=== PATIENT | male | born 1945 | race Caucasian/White ===

== ENCOUNTER → 2018-05-08 | Outpatient (CLI) | payer MEDICARE ==
[~2018-05-08] MED LIST: AMLO10TA7 PO; ASP325TEC PO; ASP81TEC PO; ASPI-586 PO; ATOR20TA66 PO; ATR20T PO; CARV6.25 PO; CARV6.252 PO; CATHETER FLUSH 10 ML SYR IV PRN; CHOL100011 PO; CHOL10003 PO; CLOP75TA PO; HCT25T PO; IBUP-15 PO; ISM30TCR PO; KRIL1CAP PO; LISI20TA PO; LISI40TA PO; MAGN400C PO; MULT-301 PO; NIA500ERT PO; NIAC1000 PO; OMEG-9 PO; OMEG1CAP24 PO; PRAV80TA PO; RNT150T PO; ROSU10TA12 PO; UBID1CAP51 PO; ZINC100T3 PO; ZINC50TA49 PO; [UNRECOGNIZED DRUG - CODE] PO
[2018-05-08 07:36] LABS: ALBUMIN 4.3 GM/DL (3.2-4.5); BILIRUBIN,DIRECT 0.2 MG/DL (0.0-0.3); BILIRUBIN,INDIRECT 0.3 MG/DL; BILIRUBIN,TOTAL 0.5 MG/DL (0.1-1.0); TOTAL PROTEIN 7.1 GM/DL (6.4-8.2)
--- NOTE | 2018-05-08 20:32 | STRESS TEST ---
DATE OF SERVICE: 05/08/2018 EXERCISE MYOVIEW STRESS TEST REPORT REFERRING PHYSICIAN: and Dr. Brandon Fregoso. Baseline heart rate is 64. Baseline blood pressure 144/87. Baseline EKG is sinus rhythm with no ischemic changes. In summary, the patient was injected with 10.81 mCi of technetium-99 Myoview and the resting images were obtained. Then, the patient started exercising with a baseline heart rate, blood pressure and EKG mentioned above. During exercise, the patient started to have frequent PVCs, ventricular couplet and three beats nonsustained ventricular tachycardia. During recovery, heart rate and blood pressure returned to baseline. The patient was able to exercise only for 3 minutes and 30 seconds. The resting and stressed images were reviewed and compared in the short axis, horizontal long axis, and vertical long axis views. Review of the images showed reversible ischemia involving the whole anterior wall and anterolateral wall. SSS is 11, SDS 11, TID value 1.02. On the gated images, the left ventricle appeared to be dilated with diffuse left ventricular hypokinesia, more pronounced at the apex and anteroapical and inferoapical segment. Calculated ejection fraction of 56%. CONCLUSION: 1. Poor exercise tolerance, a total of 3 minutes and 30 seconds on standard Og protocol, total of 5.2 mets achieving 96% of maximum expected heart rate. 2. Hypertensive response to exercise, achieving maximum blood pressure of 207/100. 3. Exercise induced frequent PVCs, ventricular couplets and three beats nonsustained ventricular tachycardia. 4. Reversible ischemia involving the whole anterior wall and anterolateral wall. 5. Prominent left ventricle with diffuse left ventricular hypokinesia, calculated ejection fraction 56%. 6. Hypertensive response to exercise. Job ID: [id number] DocumentID: [id number] Dictated Date: 05/08/2018 16:08:10 Manager Office Date: 05/08/2018 20:31:34 Dictated By: DEREK ANDERSON MD
== END ==
LOC: CARD 07:05
PROVIDERS: ATTEND Physician Assistant
DX: I25.10 Atherosclerotic heart disease of native coronary artery without angina pectoris (principal); I63.9 Cerebral infarction, unspecified; I10 Essential (primary) hypertension; E78.5 Hyperlipidemia, unspecified; E66.9 Obesity, unspecified; Z68.31 Body mass index [BMI] 31.0-31.9, adult
CPT/HCPCS: 36415; 78452; 80061; 80076; 93017; 93306

== ENCOUNTER 2018-05-12 06:39 | Day surgery (SDC) | payer MEDICARE ==
[~2018-05-12] VITALS: Ht 182.9 cm; Wt 104.3 kg
[2018-05-12] VITALS (11 sets, daily range): BP systolic 99–151; BP diastolic 66–87
[~2018-05-12 06:39] MED LIST changes: -CATHETER FLUSH 10 ML SYR IV PRN
[2018-05-12] MEDS ORDERED: HEParin 1000 UNIT/ML (10ML VIAL) FOR BOLUS ONE (06:42)
[2018-05-12] MEDS ORDERED: NS IV 1000 ML 3,000 ML ONE (06:43)
[2018-05-12] MEDS ORDERED: LIDOCAINE 1% INJ 20 ML 20 ML VIAL ONE (06:43)
[2018-05-12] MEDS ORDERED: NS IV 1000 ML 1,000 ML IV SCH ×2 (07:00→08:09)
[2018-05-12 07:08] LABS: HEMOGLOBIN 15.7 G/DL (13.3-17.7); MEAN PLATELET VOLUME 11.8 FL (7.4-10.4); RED CELL DISTRIBUTION WIDTH 14.7 % (10.0-14.5); WHITE BLOOD COUNT 8.2 10^3/uL (4.3-11.0)
[2018-05-12] MEDS ORDERED: CARV12.53 PO (07:09)
[2018-05-12] MEDS ORDERED: MIDAZOLAM 5 MG/5 ML (VERSED) VIAL ONE (07:14)
[2018-05-12] MEDS ORDERED: fentaNYL INJECTION 100 MCG/2 ML AMP ONE (07:14)
[2018-05-12 07:21] LABS: PROTHROMBIN TIME PATIENT 13.4 SEC (12.2-14.7)
[2018-05-12 07:28] LABS: ALANINE AMINOTRANSFERASE 39 U/L (0-55); ALBUMIN 4.5 GM/DL (3.2-4.5); ALKALINE PHOSPHATASE 40 U/L (40-136); BILIRUBIN,TOTAL 0.6 MG/DL (0.1-1.0); BUN/CREATININE RATIO 17; CALCIUM 9.8 MG/DL (8.5-10.1); CARBON DIOXIDE 25 MMOL/L (21-32); CHLORIDE 103 MMOL/L (98-107); CREATININE SERUM 0.84 MG/DL (0.60-1.30); GFR ESTIMATED > 60; GLUCOSE 121 MG/DL (70-105); POTASSIUM 3.8 MMOL/L (3.6-5.0); SODIUM 141 MMOL/L (135-145); TOTAL PROTEIN 7.5 GM/DL (6.4-8.2)
--- NOTE | 2018-05-12 07:37 | Diagnostic Imaging Report ---
Examination: Single upright view of the chest Indication: Abnormal stress test. Coronary artery disease. Hypertension. Comparison: Multiple priors, most recent performed on 01/21/2016. Findings: No focal consolidation. There is prominence of the central pulmonary vasculature, without overt edema. The heart is top normal in size. The cardiomediastinal silhouette is unchanged. No pneumothorax or large pleural effusion. No acute osseous abnormality. Median sternotomy wires appear intact. Impression: No acute chest disease. No significant change from prior. Dictated by: Dictated on workstation # [id number]
--- NOTE | 2018-05-12 07:46 | Cardiac Procedure Note-CS/ASA ---
Pre-Procedure Note Pre-Op Procedure Note H&P Reviewed The H&P was reviewed, patient examined and no changes noted. Date H&P Reviewed: May 12, 2018 Time H&P Reviewed: 07:45 Conscious Sedation Pre-Proced Time 07:45 ASA Score 3 For ASA 3 and 4: Consider anesthesia and medical clearance. Also, for patients with a history of failed moderate sedation consider anesthesia. Airway Lungs Heart ASA score ASA 1: a normal healthy patient ASA 2: a patient with a mild systemic disease (mid diabetes, controlled hypertension, obesity x ASA 3: a patient with a severe systemic disease that limits activity (angina , COPD, prior Myocardial infarction) ASA 4: a patient with an incapacitating disease that is a constant threat to life (CHF, renal failure) ASA 5: a moribund patient not expected to survive 24 hrs. (ruptured aneurysm) ASA 6: a declared brain- patient whose organs are being harvested. For emergent operations, add the letter E after the classification Mallampati Classification Grade 3 Sedation Plan Analgesia, Amnesia, Plan communicated to team members, Discussed options with patient/fam, Discussed risks with patient/fam The patient is an appropriate candidate to undergo the planned procedure, sedation, and anesthesia. The patient immediately re-assessed prior to indication. DEREK ANDERSON MD May 12, 2018 07:46
--- NOTE | 2018-05-12 08:11 | Discharge Inst-Post CATH ---
Discharge Inst-CATH/EP Post Cardiac Cath/EP D/C Inst Follow Up/Plan Appointment with Dr. ANDERSON's office in 2-4 weeks CARDIAC CATH DISCHARGE INSTRUCTIONS *Hold Metformin for 48 hours post heart cath. ACTIVITY * Go Home directly and rest. * Limit activity of the leg (or wrist if it was used) for 7 days including aerobics, swimming, jogging, bicycling, etc. * Restrict stair-climbing for 7 days if possible, if not, climb up with your non -cath leg, then bring together on the same step. * Avoid lifting, pushing, pulling or excessive movement of the affected extremity for 7 days. * Customary sexual activity may be resumed after 2 days-use caution not to use a position that strains or causes pain to the affected extremity. * No driving for 24 hours. * NO SMOKING. * Avoid straining for bowel movements for 7 days. * Gentle walking on level ground is allowed. * Returning to work will depend on the type of procedure and the results. Your doctor will discuss this with you. CALL YOUR DOCTOR FOR ANY OF THE FOLLOWING: *If bleeding from the puncture site occurs- Apply gentle pressure to site with clean cloth and call your doctor or EMS. * If a knot or lump forms under the skin, increases in size, or causes pain. * If bruising appears to be worsening or moving further down your leg instead of disappearing. * Temperature above 101 F. CARE OF YOUR GROIN INCISION; * Bruising or purple discoloration of the skin near the puncture site is common. * You may shower only, no bathtub bathing for 5 days. Be careful to avoid slipping as your leg may feel stiff. * If a closure device was used on your femoral artery, please see the attached guide regarding care of the device and your leg. * Leave the dressing on, until removed by office staff. CARE OF YOUR WRIST INCISION; * Bruising or purple discoloration of the skin near the puncture site is common. * You may shower. * DO NOT submerge wrist. * Leave dressing on, until removed by office staff.. DEREK ANDERSON MD May 12, 2018 08:11
[2018-05-12] MEDS ORDERED: FLU QUADRIvalent (5+ YOA) 2018-2019 (AFLURIA) 0.5 ML IM ONE (08:15)
[2018-05-12] MEDS ORDERED: PATIENT MAY USE OWN MEDS, ALL PO SCH (08:15)
--- NOTE | 2018-05-12 08:16 | Cardiac Cath Report ---
Cardiac Cath Report Physician (s)/Industrial Relations Counselor (s) Physician DEREK ANDERSON MD Pre-Procedure Diagnosis Pre-Procedure Diagnosis: coronary artery disease Post-Procedure Note Procedure Start Date: May 12, 2018 Name of Procedure: Left heart catheterization Vein graft angiogram Aortic root angiogram Findings/Procedure Note PROCEDURE NOTE: 72 years old gentleman with history of coronary artery disease, CABG, had an abnormal stress test with anterior wall ischemia, scheduled for cardiac catheterization possible PTCA. After explaining the procedure to the patient, all pros and cons were explained , all questions were answered. The patient signed the consent and then he was placed on the cardiac catheterization laboratory. Groin was prepped SL fashion local anesthesia was used. Sheath placed in the Right femoral artery. Blane right and left catheter were used to access the coronary system.Vein Graft evaluated. FUCHS evaluated. Pigtail was used to access the left ventricular cavity. Left ventriculogram was not done, pressure was measured Aortic root angiogram was done At the end of the procedure the sheath was removed. Closure device was used FINDINGS: Hemodynamics LV 91/13, end-diastolic pressure of 13 Aorta 93/43 mean of 61 ANATOMY: Left Main has moderate disease nonobstructive disease Left Anterior Descending is calcified with moderate disease proximally, small vessel disease distally, FUCHS to LAD is occluded Left Circumflex is moderate in size, the proper circumflex artery is very small artery with diffuse disease, vein graft to the obtuse marginal branch is occluded Right Coronory Artery is occluded, the vein graft to the right coronary artery is patent FUCHS to LAD is occluded, diffusely atretic Vein Graft there are 2 vein grafts. Vein graft to the right coronary artery is patent with good flow distally Vein graft to the obtuse marginal branch is occluded LV Gram was not done, pressure was measured Aorta evaluation with aortic root angiogram which showed normal aortic root and ascending aorta, hypertensive changes noted dissection or aneurysm, the vein graft to the right coronary artery was filled with contrast the other vein graft is occluded CONCLUSION: 1. Patent vein graft to the right coronary artery, occluded FUCHS to LAD and vein graft to the obtuse marginal branch 2. Moderate disease in the left main coronary artery 3. Calcified and moderately diseased proximal LAD, more significant disease at the distal LAD. Nonobstructive disease 4. Mild to moderate disease in the circumflex artery, the proper circumflex artery is very small artery with diffuse disease DISCUSSION AND RECOMMENDATION: Medical therapy is recommended no intervention is warranted Anesthesia Type: Conscious Sedation Estimated blood loss (mL): 25 ml Contrast Amount: 90 ml Total Radiation Dose: 713 mGy Post-Procedure Diagnosis Post-operative diagnosis: Coronary artery disease Hypertension Hyperlipidemia Chest pain nonspecific etiology DEREK ANDERSON MD May 12, 2018 08:16
== END 2018-05-12 12:35 | disposition home or self-care (01) ==
LOC: CATH 06:39 → SDC 08:34 → CATH 12:35
PROVIDERS: ATTEND Internal Medicine Cardiovascular Disease
DX: I25.10 Atherosclerotic heart disease of native coronary artery without angina pectoris (principal); I10 Essential (primary) hypertension; E78.5 Hyperlipidemia, unspecified; R07.89 Other chest pain; I65.23 Occlusion and stenosis of bilateral carotid arteries; N52.9 Male erectile dysfunction, unspecified; Z95.1 Presence of aortocoronary bypass graft; Z86.73 Personal history of transient ischemic attack (TIA), and cerebral infarction without residual deficits; Z87.891 Personal history of nicotine dependence; Z79.02 Long term (current) use of antithrombotics/antiplatelets; Z79.82 Long term (current) use of aspirin; Z79.899 Other long term (current) drug therapy
CPT/HCPCS: 36415; 71045; 80053; 85027; 85610; 85730; 87081; 93459; 93567

== ENCOUNTER 2019-06-04 15:25 | Observation (INO) | payer MEDICARE ==
[~2019-06-04] VITALS: Ht 182.9 cm; Wt 103.6 kg
[~2019-06-04 15:25] MED LIST changes: +CARV12.53 PO
--- NOTE | 2019-06-04 15:45 | ED Respiratory ---
General Chief Complaint: Respiratory Problems Stated Complaint: SOB History of Present Illness Date Seen by Provider: Jun 04, 2019 Time Seen by Provider: 15:25 Initial Comments 74-year-old female presents for shortness of air. The patient states that he chronically has some shortness of air with exertion, however been getting worse over the last few days even at rest. He does not use any inhalers, CPAP or resp treatments. History of CAD. Denies Chest pain, n/v/d. He has been home, did travel to [place], [place] to [facility] 3 days ago, he stopped for coffee but otherwise did not go out publicly. He went to [facility] approximately 2-3 weeks ago, but denies stopping anywhere. He has been home, social distancing. No known COVID 19 exposure. No fevers, change in smell or taste, myalgias or abdominal symptoms. 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 He lives in [place], where they have 4 + COVID patients. Timing/Duration: constant, getting worse Severity: mild Prior Episodes/Possible Cause: occasional episodes Modifying Factors: Improves With Rest Associated Symptoms: No chest pain/soreness; cough; No fever/chills, No nasal congestion, No nasal drainage; shortness of breath; No wheezing Allergies and Home Medications Allergies Coded Allergies: No Known Drug Allergies (Unverified , 11/12/09) Home Medications Amlodipine Besylate 10 Mg Tablet, 10 MG PO DAILY, (Reported) Aspirin 81 Mg Tablet.dr, 81 MG PO DAILY, (Reported) Atorvastatin Calcium 20 Mg Tablet, 20 MG PO HS, (Reported) Carvedilol 12.5 Mg Tablet, 12.5 MG PO BID, (Reported) Clopidogrel Bisulfate 75 Mg Tablet, 75 MG PO DAILY, (Reported) Lisinopril 40 Mg Tablet, 40 MG PO HS, (Reported) Multivitamin 1 Each Tablet, 1 EACH PO DAILY, (Reported) Niacin 1,000 Mg Tablet.sa, 500 MG PO DAILY, (Reported) pt takes 1/[address] decreased dosage Garita-3/Dha/Epa/Fish Oil 1 Each Capsule.dr, 1,400 MG PO TID, (Reported) Ranitidine Hcl 150 Mg Tablet, 150 MG PO BID, (Reported) Ubidecarenone/Vit E Acetate 1 Each Capsule, 100 MG PO DAILY, (Reported) Patient Home Medication List Home Medication List Reviewed: Yes Review of Systems Review of Systems Constitutional: no symptoms reported, see HPI Respiratory: see HPI, cough; No phlegm; short of breath Cardiovascular: no symptoms reported, see HPI; No chest pain All Other Systems Reviewed Negative Unless Noted: Yes Past Boqmmta-Ugswah-Uoknit Hx Past Med/Social Hx: Reviewed Nursing Past Med/Soc Hx Patient Social History Alcohol Beverage of Choice: Beer Type Used: Cigarettes Former Smoker, Quit: Jan 21, 2008 Recent Foreign Travel: No Contact w/Someone Who Travel: No Recent Hopitalizations: Yes Past Medical History CABG Respiratory: No Cardiac: Yes Coronary Artery Disease Neurological: Yes Reproductive Disorders: No Gastrointestinal: No Cancer: Yes Blood Disorders: No Physical Exam Vital Signs - First Documented 06/04/19 15:36 Temp 36.5 Pulse 87 Resp 18 B/P (MAP) 144/98 (113) Pulse Ox 95 O2 Delivery Nasal Cannula O2 Flow Rate 2.00 Capillary Refill : Height: 6'0.00" Weight: 230lbs. 0.0oz. 104.265521xm; 31.2 BMI Method: General Appearance: WD/WN, mild distress Eyes: Bilateral Eye Normal Inspection, Bilateral Eye PERRL, Bilateral Eye EOMI HEENT: PERRL/EOMI, normal ENT inspection, TMs normal, pharynx normal Neck: non-tender, full range of motion, supple, normal inspection Respiratory: chest non-tender, lungs clear, normal breath sounds, no respiratory distress Cardiovascular: normal peripheral pulses, regular rate, rhythm, no edema, no murmur Gastrointestinal: normal bowel sounds, non tender, soft Extremities: normal range of motion, non-tender, normal inspection, no pedal edema, normal capillary refill Neurologic/Psychiatric: no motor/sensory deficits, alert, normal mood/affect, oriented x 3 Skin: normal color, warm/dry Progress/Results/Core Measures Suspected Sepsis SIRS Temperature: Pulse: Respiratory Rate: Laboratory Tests 06/04/19 15:30: White Blood Count 9.0 Blood Pressure / Mean: Laboratory Tests 06/04/19 15:30: Creatinine 1.04, INR Comment 1.1, Platelet Count 263, Total Bilirubin 1.5H Results/Orders Lab Results Laboratory Tests Test 06/04/19 15:30 Range/Units White Blood Count 9.0 4.3-11.0 10^3/uL Red Blood Count 5.92 H 4.35-5.85 10^6/uL Hemoglobin 16.6 13.3-17.7 G/DL Hematocrit 50 40-54 % Mean Corpuscular Volume 84 80-99 FL Mean Corpuscular Hemoglobin 28 25-34 PG Mean Corpuscular Hemoglobin Concent 33 32-36 G/DL Red Cell Distribution Width 15.5 H 10.0-14.5 % Platelet Count 263 130-400 10^3/uL Mean Platelet Volume 11.3 H 7.4-10.4 FL Neutrophils (%) (Auto) 67 42-75 % Lymphocytes (%) (Auto) 18 12-44 % Monocytes (%) (Auto) 10 0-12 % Eosinophils (%) (Auto) 4 0-10 % Basophils (%) (Auto) 1 0-10 % Neutrophils # (Auto) 6.0 1.8-7.8 X 10^3 Lymphocytes # (Auto) 1.6 1.0-4.0 X 10^3 Monocytes # (Auto) 0.9 0.0-1.0 X 10^3 Eosinophils # (Auto) 0.4 H 0.0-0.3 10^3/uL Basophils # (Auto) 0.1 0.0-0.1 10^3/uL Prothrombin Time 14.5 12.2-14.7 SEC INR Comment 1.1 0.8-1.4 Activated Partial Thromboplast Time 28 24-35 SEC D-Dimer 0.52 H 0.00-0.49 UG/ML Sodium Level 140 135-145 MMOL/L Potassium Level 3.8 3.6-5.0 MMOL/L Chloride Level 101 98-107 MMOL/L Carbon Dioxide Level 27 21-32 MMOL/L Anion Gap 12 5-14 MMOL/L Blood Urea Nitrogen 10 7-18 MG/DL Creatinine 1.04 0.60-1.30 MG/DL Estimat Glomerular Filtration Rate > 60 BUN/Creatinine Ratio 10 Glucose Level 121 H 70-105 MG/DL Calcium Level 9.6 8.5-10.1 MG/DL Corrected Calcium 9.2 8.5-10.1 MG/DL Magnesium Level 2.0 1.6-2.4 MG/DL Total Bilirubin 1.5 H 0.1-1.0 MG/DL Aspartate Amino Transf (AST/SGOT) 30 5-34 U/L Alanine Aminotransferase (ALT/SGPT) 31 0-55 U/L Alkaline Phosphatase 49 40-136 U/L Lactate Dehydrogenase 267 H 125-220 U/L Myoglobin 45.6 10.0-92.0 NG/ML Troponin I < 0.028 <0.028 NG/ML C-Reactive Protein High Sensitivity 0.88 H 0.00-0.50 MG/DL B-Type Natriuretic Peptide 180.5 H <100.0 PG/ML Total Protein 8.2 6.4-8.2 GM/DL Albumin 4.5 3.2-4.5 GM/DL Amylase Level 64 25-125 U/L Lipase 36 8-78 U/L Procalcitonin 0.02 <0.10 NG/ML My Orders Orders - MARGIE JEFFERSON Cbc With Automated Diff (06/04/19 15:37) Magnesium (06/04/19 15:37) Ekg Tracing (06/04/19 15:37) Comprehensive Metabolic Panel (06/04/19 15:37) Myoglobin Serum (06/04/19 15:37) Protime With Inr (06/04/19 15:37) Partial Thromboplastin Time (06/04/19 15:37) O2 (06/04/19 15:37) Monitor-Rhythm Ecg Trace Only (06/04/19 15:37) Lipase (06/04/19 15:37) Amylase (06/04/19 15:37) BNP (06/04/19 15:37) Troponin I (06/04/19 15:37) Chest Pa/Lat (2 View) (06/04/19 15:37) Rx-Albuterol Inhaler (Rx-Proair) (06/04/19 15:47) Hs C Reactive Protein (06/04/19 15:52) Fibrin Degradation Products (06/04/19 15:52) Dexamethasone Injection (Decadron Inject (06/04/19 17:00) Influenza A And B Antigens (06/04/19 16:56) Procalcitonin (Pct) (06/04/19 17:11) LDH (06/04/19 17:11) Coronavirus Sars-Cov-2 So 2018 (06/04/19 17:11) Vital Signs/I&O 4/20/20 15:36 Temp 36.5 Pulse 87 Resp 18 B/P (MAP) 144/98 (113) Pulse Ox 95 O2 Delivery Nasal Cannula O2 Flow Rate 2.00 Capillary Refill : Progress Note : Time: 15:25 Progress Note Patient seen and evaluated, initial SaO2 84-86% on room air, gave Oxygen 2 L NC and SaO2 immediately improved to 92-95%. Will get EKG, Labs, Chest X-ray and give Albuterol MDI. 1600 O2 decreased to 1 L, maintaining SaO2 93-96%. 1620 Walked to bathroom, RA Sa O2 83%. Returned to 2L per NC and SaO2 93-95%. Spoke to Dr. Escobedo about patient, agreeable to admit and perform COVID screening tests. 1700 Patient stable, no change in symptoms. Continues to require 1-2 L of O2 per NC. Awaiting report to nurses for transfer to floor. ECG Initial ECG Impression Date: Jun 04, 2019 Initial ECG Impression Time: 15:49 Initial ECG Rate: 83 Initial ECG Rhythm: Normal Sinus Initial ECG Intervals: Normal Initial ECG Intervals QRSD 119, QT 393, QTC 462. [place] QRS 43, T -19. Initial ECG Impression: Normal Initial ECG Comparisson: Unchanged Diagnostic Imaging Diagonstic Imaging: Xray Plain Films/CT/US/NM/MRI: chest Comments NAME: GORDO DUTTON [facility] REC#: [id number] PT STATUS: REG ER : 1945 PHYSICIAN: MARGIE JEFFERSON ADMIT DATE: 06/04/19/ER Draft Date of Exam:06/04/19 CHEST PA/LAT (2 VIEW) EXAMINATION: PA and lateral chest. INDICATION: Shortness of breath. History of coronary artery bypass grafting. COMPARISON: May 12, 2018. FINDINGS: There are operative changes of previous sternotomy and coronary artery bypass grafting. The heart size appears stable and the central prominent vascularity appears appropriate without evidence of current failure. There is flattening of the diaphragms. There are chronic interstitial changes present within the lungs. No new interstitial or alveolar infiltrates are evident. There is no effusion or pneumothorax. IMPRESSION: 1. Operative changes of bypass grafting. The heart size is stable without evidence of current failure. 2. Pulmonary hyperinflation and chronic pulmonary interstitial changes. Features suggest underlying COPD. No new infiltrate or consolidation is evident. Dictated on workstation # [id number] Dict: 06/04/19 1611 Trans: 06/04/19 1626 [id number] Interpreted by: HANG LUU MD Electronically signed by: Reviewed: Reviewed by Me Departure Impression Primary Impression: COPD exacerbation Additional Impression: Hypoxia Disposition: ADMITTED INPATIENT Condition: Stable Admissions Decision to Admit Reason: Admit from ER (General) Decision to Admit/Date: Jun 04, 2019 Time/Decision to Admit Time: 16:30 Departure-Patient Inst. Referrals: NO,LOCAL PHYSICIAN (PCP/Family) Primary Care Physician MARGIE JEFFERSON Jun 04, 2019 15:45
[2019-06-04] MEDS ORDERED: RX-ALBUTEROL INHALER (PROAIR) 8.5 GM IH STA (15:47)
[2019-06-04 15:50] LABS: BASOPHILS # (AUTO) 0.1 10^3/uL (0.0-0.1); BASOPHILS % (AUTO) 1 % (0-10); EOSINOPHILS # (AUTO) 0.4 10^3/uL (0.0-0.3); EOSINOPHILS % (AUTO) 4 % (0-10); HEMATOCRIT 50 % (40-54); HEMOGLOBIN 16.6 G/DL (13.3-17.7); LYMPHOCYTES # (AUTO) 1.6 X 10^3 (1.0-4.0); LYMPHOCYTES % (AUTO) 18 % (12-44); MEAN CORPUSCULAR HEMOGLOBIN 28 PG (25-34); MEAN CORPUSCULAR HGB CONC 33 G/DL (32-36); MEAN CORPUSCULAR VOLUME 84 FL (80-99); MEAN PLATELET VOLUME 11.3 FL (7.4-10.4); MONOCYTES # (AUTO) 0.9 X 10^3 (0.0-1.0); MONOCYTES % (AUTO) 10 % (0-12); NEUTROPHILS % (AUTO) 67 % (42-75); PLATELET COUNT 263 10^3/uL (130-400); RED CELL DISTRIBUTION WIDTH 15.5 % (10.0-14.5)
[2019-06-04] MEDS ORDERED: HYDR25TA4 PO (15:50)
[2019-06-04 16:03] LABS: ALBUMIN 4.5 GM/DL (3.2-4.5)
[2019-06-04 16:04] LABS: CHLORIDE 101 MMOL/L (98-107); POTASSIUM 3.8 MMOL/L (3.6-5.0); SODIUM 140 MMOL/L (135-145)
[2019-06-04 16:05] LABS: AMYLASE 64 U/L (25-125); CALCIUM 9.6 MG/DL (8.5-10.1)
[2019-06-04 16:06] LABS: GLUCOSE 121 MG/DL (70-105); TOTAL PROTEIN 8.2 GM/DL (6.4-8.2)
[2019-06-04 16:07] LABS: CARBON DIOXIDE 27 MMOL/L (21-32)
[2019-06-04 16:08] LABS: BILIRUBIN,TOTAL 1.5 MG/DL (0.1-1.0)
[2019-06-04 16:09] LABS: ALKALINE PHOSPHATASE 49 U/L (40-136); CREATININE SERUM 1.04 MG/DL (0.60-1.30); GFR ESTIMATED > 60
[2019-06-04 16:10] LABS: BUN/CREATININE RATIO 10
[2019-06-04 16:12] LABS: ALANINE AMINOTRANSFERASE 31 U/L (0-55)
[2019-06-04 16:14] LABS: LIPASE 36 U/L (8-78)
[2019-06-04 16:16] LABS: INR 1.1 (0.8-1.4); PROTHROMBIN TIME PATIENT 14.5 SEC (12.2-14.7)
--- NOTE | 2019-06-04 16:28 | Diagnostic Imaging Report ---
EXAMINATION: PA and lateral chest. INDICATION: Shortness of breath. History of coronary artery bypass grafting. COMPARISON: May 12, 2018. FINDINGS: There are operative changes of previous sternotomy and coronary artery bypass grafting. The heart size appears stable and the central prominent vascularity appears appropriate without evidence of current failure. There is flattening of the diaphragms. There are chronic interstitial changes present within the lungs. No new interstitial or alveolar infiltrates are evident. There is no effusion or pneumothorax. IMPRESSION: 1. Operative changes of bypass grafting. The heart size is stable without evidence of current failure. 2. Pulmonary hyperinflation and chronic pulmonary interstitial changes. Features suggest underlying COPD. No new infiltrate or consolidation is evident. Dictated by: Dictated on workstation # [id number]
[2019-06-04] MEDS ORDERED: DEXAMETHASONE 10 MG/ML (DECADRON) 1 ML VIAL IM ONE (17:00)
--- NOTE | 2019-06-04 18:40 | NUR ---
GORDO DUTTON admitted to room 433-1, with an admitting diagnosis of , on 06/04/19 from ED via W/C, accompanied by ARLEEN AVILA.GORDO DUTTON introduced to surroundings, call light, bed controls, phone, TV, temperature control, lights, meal times, smoking policy, visitor policy, side rail policy, bathrooms and showers. Patient Rights given to patient in the handbook. GORDO DUTTON verbalizes understanding that [facility] is not responsible for the loss or damage to any personal effects or valuables that are kept in the patients posession during their hospitalization.
[2019-06-04] MEDS ORDERED: ONDANSETRON 4 MG/2 ML (SDV) Z0FRAN IV PRN (19:00)
[2019-06-04] MEDS ORDERED: ACETAMINOPHEN 325 MG TABLET PO PRN (19:00)
[2019-06-04] MEDS ORDERED: CATHETER FLUSH 10 ML SYR IV PRN (19:00)
[2019-06-04 20:00] VITALS: BP 146/78
[2019-06-04] MEDS: RT-ALBUTEROL HFA (PROAIR HFA) 8.5 GM IH SCH (21:22)
[2019-06-04 21:51] VITALS: BP 146/78
[2019-06-04] MEDS: CATHETER FLUSH 10 ML SYR IV SCH (22:00)
[2019-06-05] VITALS: BP 118/67
[2019-06-05] MEDS: RT-ALBUTEROL HFA (PROAIR HFA) 8.5 GM IH SCH ×6 (01:47→21:06)
[2019-06-05 04:00] VITALS: BP 112/68
[2019-06-05 04:27] LABS: BASOPHILS # (AUTO) 0.1 10^3/uL (0.0-0.1); BASOPHILS % (AUTO) 1 % (0-10); EOSINOPHILS # (AUTO) 0.3 10^3/uL (0.0-0.3); EOSINOPHILS % (AUTO) 3 % (0-10); HEMATOCRIT 45 % (40-54); HEMOGLOBIN 14.8 G/DL (13.3-17.7); LYMPHOCYTES # (AUTO) 1.4 X 10^3 (1.0-4.0); LYMPHOCYTES % (AUTO) 15 % (12-44); MEAN CORPUSCULAR HEMOGLOBIN 28 PG (25-34); MEAN CORPUSCULAR HGB CONC 33 G/DL (32-36); MEAN CORPUSCULAR VOLUME 84 FL (80-99); MEAN PLATELET VOLUME 11.1 FL (7.4-10.4); MONOCYTES # (AUTO) 1.1 X 10^3 (0.0-1.0); MONOCYTES % (AUTO) 12 % (0-12); NEUTROPHILS # (AUTO) 6.4 X 10^3 (1.8-7.8); NEUTROPHILS % (AUTO) 69 % (42-75); PLATELET COUNT 198 10^3/uL (130-400); RED CELL DISTRIBUTION WIDTH 15.2 % (10.0-14.5); WHITE BLOOD COUNT 9.3 10^3/uL (4.3-11.0)
[2019-06-05 04:43] LABS: ALBUMIN 3.6 GM/DL (3.2-4.5)
[2019-06-05 04:44] LABS: CHLORIDE 103 MMOL/L (98-107); POTASSIUM 3.3 MMOL/L (3.6-5.0); SODIUM 141 MMOL/L (135-145)
[2019-06-05 04:45] LABS: CALCIUM 8.1 MG/DL (8.5-10.1)
[2019-06-05 04:46] LABS: GLUCOSE 105 MG/DL (70-105); TOTAL PROTEIN 6.3 GM/DL (6.4-8.2)
[2019-06-05 04:47] LABS: CARBON DIOXIDE 25 MMOL/L (21-32)
[2019-06-05 04:48] LABS: BILIRUBIN,TOTAL 1.5 MG/DL (0.1-1.0)
[2019-06-05 04:49] LABS: ALKALINE PHOSPHATASE 36 U/L (40-136)
[2019-06-05 04:50] LABS: CREATININE SERUM 0.78 MG/DL (0.60-1.30); GFR ESTIMATED > 60
[2019-06-05 04:51] LABS: BUN/CREATININE RATIO 13
[2019-06-05 04:53] LABS: ALANINE AMINOTRANSFERASE 22 U/L (0-55)
[2019-06-05] MEDS: CATHETER FLUSH 10 ML SYR IV SCH ×3 (06:48→22:06)
[2019-06-05] MEDS: predniSONE 20 MG TAB PO SCH (06:48)
[2019-06-05 07:28] VITALS: BP 190/65
[2019-06-05] MEDS ORDERED: LISI40TA PO (10:52)
[2019-06-05] MEDS ORDERED: CLOP75TA28 PO (10:52)
[2019-06-05] MEDS ORDERED: NIAC500T24 PO (10:52)
[2019-06-05] MEDS ORDERED: MULT-1136 PO (10:52)
[2019-06-05] MEDS ORDERED: OMEG-9 PO ×2 (10:52)
[2019-06-05] MEDS ORDERED: UBID200C16 PO (10:52)
[2019-06-05] MEDS ORDERED: IBUP-2473 PO (10:53)
--- NOTE | 2019-06-05 10:54 | NUR ---
SPOKE WITH THE PT (CALLED HIS ROOM PHONE, HE HAD A MED LIST THAT HE WENT OVER) AND WENT THRU THE EXT MED HISTORY TO COMPLETE THE MED REC PT WAS ABLE TO TELL ME ALL THE MED AND HOW/WHEN HE TAKES EACH- ALL THE INFORMATION MATCHED THE EXT MED HISTORY OTC MEDS: ASPIRIN 81 COQ10 FISH OIL IBUPROFEN MTV NIACIN
[2019-06-05] MEDS ORDERED: amLODIPine 10 MG (NORVASC) TAB PO ONE (11:30)
[2019-06-05] MEDS ORDERED: CARVEDILOL 12.5 MG (COREG) TABLET PO ONE (11:30)
[2019-06-05] MEDS ORDERED: HYDROCHLOROTHIAZIDE 25 MG (HCTZ) TAB PO ONE (11:30)
[2019-06-05] MEDS ORDERED: lisINopril 20 MG (PRINIVIL) TABLET PO ONE (11:30)
[2019-06-05 11:33] VITALS: BP 158/84
--- NOTE | 2019-06-05 12:45 | History & Physical-Hospitalist ---
History of Present Illness HPI/Chief Complaint is a 74-year-old male with past medical history of coronary artery disease status post CABG, HTN, HLD, presented to the emergency department due to shortness of breath. He states this is been going on since Lam time. He has been treated with antibiotics twice in that timeframe. Despite this he has continued to have SOB and was more dyspneic with exertion over the past week. His is a nurse here at the cancer center and checked his oxygen and found it to be in the 80s so took him to the ER for evaluation. He has a 40 pack year history of smoking and was placed on oxygen. There was concern for COPD exacerbation but given history of travel to [place], lymphopenia, and symptoms COVID testing was done. Today he states that he feels much better and is actually requesting discharge home. He did develop a fever this morning though and is still on oxygen. Source: patient Date Seen 06/05/19 Time Seen by a Provider: 12:45 Attending Physician Jose Escobedo MD PCP No,Local Physician Referring Physician Date of Admission Jun 04, 2019 at 17:15 Home Medications & Allergies Home Medications Reviewed patient Home Medication Reconciliation performed by pharmacy medication reconciliations aircraft technician and/or nursing. Patients Allergies have been reviewed. Allergies Allergies Coded Allergies No Known Drug Allergies (Unverified11/12/09) Past Ckulzsd-Xzojhj-Ojzrue Hx Past Med/Social Hx: Reviewed Nursing Past Med/Soc Hx Patient Social History Marrital Status: Employed/Student: retired Alcohol Use: Regular Use Number of Drinks Today: AA Alcohol Beverage of Choice: Beer Recreational Drug Use: Yes Drug of Choice: cbd oil Smoking Status: Former Smoker Former Smoker, Quit: Jan 21, 2008 Type Used: Cigarettes Recent Foreign Travel: No Contact w/other who traveled: No Recent Hopitalizations: Yes Recent Infectious Disease Expo: No Past Medical History Surgeries: CABG Cardiac: Atrial Fibrillation, Coronary Artery Disease, Heart Attack, High Cholesterol, Hypertension Neurological: Stroke Reproductive: No History of Blood Disorders: No Family History Reviewed Nursing Family Hx No Pertinent Family Hx Review of Systems Constitutional: No chills; fever EENTM: no symptoms reported Respiratory: dyspnea on exertion; No orthopnea; phlegm, short of breath Cardiovascular: No chest pain, No edema; Hx of Intervention; No palpitations Gastrointestinal: No abdominal pain, No constipation, No diarrhea, No nausea, No vomiting Genitourinary: no symptoms reported Musculoskeletal: no symptoms reported Skin: no symptoms reported Psychiatric/Neurological: No Symptoms Reported Physical Exam Physical Exam Vital Signs Vital Signs - First Documented 06/04/19 15:36 Temp 36.5 Pulse 87 Resp 18 B/P (MAP) 144/98 (113) Pulse Ox 95 O2 Delivery Nasal Cannula O2 Flow Rate 2.00 Capillary Refill : Less Than 3 SecondsLess Than 3 Seconds Height, Weight, BMI Height: 6'0.00" Weight: 230lbs. 0.0oz. 104.052519kw; 30.96 BMI Method: General Appearance: No Apparent Distress, WD/WN Respiratory: Lungs Clear, No Respiratory Distress Cardiovascular: Regular Rate, Rhythm, No Murmur Gastrointestinal: Normal Bowel Sounds, Non Tender, Soft Extremity: No Calf Tenderness, No Pedal Edema Neurologic/Psychiatric: Alert, Oriented x3, Normal Mood/Affect Skin: Normal Color, Warm/Dry, Other (sternal scar) Results Results/Procedures Labs Laboratory Tests 06/04/19 15:30 06/05/19 04:10 Patient resulted labs reviewed. Imaging: Reviewed Imaging Report Imaging Date of Exam:06/04/19 CHEST PA/LAT (2 VIEW) EXAMINATION: PA and lateral chest. INDICATION: Shortness of breath. History of coronary artery bypass grafting. COMPARISON: May 12, 2018. FINDINGS: There are operative changes of previous sternotomy and coronary artery bypass grafting. The heart size appears stable and the central prominent vascularity appears appropriate without evidence of current failure. There is flattening of the diaphragms. There are chronic interstitial changes present within the lungs. No new interstitial or alveolar infiltrates are evident. There is no effusion or pneumothorax. IMPRESSION: 1. Operative changes of bypass grafting. The heart size is stable without evidence of current failure. 2. Pulmonary hyperinflation and chronic pulmonary interstitial changes. Features suggest underlying COPD. No new infiltrate or consolidation is evident. Assessment/Plan Admission Diagnosis COPD Exacerbation Admission Status: Observation Assessment and Plan COPD Exacerbation with hypoxia COVID Rule Out Continue on Prednisone given higher likelihood of COPD exacerbation at this time Albuterol MDI Await COVID testing Will need ambulatory pulse ox prior to DC Titrate sats to keep >90 HTN CAD s/p CABG HLD Continue his home meds Clinical Quality Measures DVT/VTE Risk/Contraindication: Risk Factor Score Per Nursin RFS Level Per Nursing on Admit: 1=Low/No VTE PPX JOSE ESCOBEDO MD Jun 05, 2019 12:45
[2019-06-05 16:16] VITALS: BP 121/72
[2019-06-05 19:54] VITALS: BP 110/63
[2019-06-05] MEDS: CARVEDILOL 12.5 MG (COREG) TABLET PO SCH (20:49)
[2019-06-05] MEDS ORDERED: lisINopril 40 MG (PRINIVIL) TABLET PO SCH (21:00)
[2019-06-06 00:05] VITALS: BP 109/67
[2019-06-06] MEDS: RT-ALBUTEROL HFA (PROAIR HFA) 8.5 GM IH SCH ×4 (01:50→14:23)
[2019-06-06 04:15] VITALS: BP 102/62
[2019-06-06] MEDS: CATHETER FLUSH 10 ML SYR IV SCH ×2 (06:19→15:29)
[2019-06-06] MEDS: predniSONE 20 MG TAB PO SCH (06:19)
[2019-06-06 07:56] VITALS: BP 118/75
[2019-06-06] MEDS: CARVEDILOL 12.5 MG (COREG) TABLET PO SCH (08:21)
[2019-06-06] MEDS ORDERED: CLOPIDOGREL 75 MG (PLAVIX) TABLET PO SCH (09:00)
[2019-06-06] MEDS ORDERED: ASPIRIN E.C. 81 MG (ECOTRIN) TAB PO SCH (09:00)
[2019-06-06] MEDS ORDERED: amLODIPine 10 MG (NORVASC) TAB PO SCH (09:00)
[2019-06-06] MEDS ORDERED: HYDROCHLOROTHIAZIDE 25 MG (HCTZ) TAB PO SCH (09:00)
[2019-06-06] MEDS ORDERED: RT-ALBUINH INH (10:03)
[2019-06-06] MEDS ORDERED: PRD20T PO (10:03)
--- NOTE | 2019-06-06 10:08 | Discharge Inst-Simple/Standard ---
Discharge Inst-Standard Discharge Medications New, Converted or Re-Newed RX: Transmitted to Pharmacy Patient Instructions/Follow Up Plan of Care/Instructions/FU: Please continue to take your mnedications as written. Please follow up with your PCP in the next week to follow up this hospital stay. Activity as Tolerated: Yes Discharge Diet: No Restrictions Return to The Hospital For: Chest pain, shortness of breath, increased inhaler use, fever, if you feel you are getting worse. JOSE VALENTINE MD Jun 06, 2019 10:07
[2019-06-06 11:30] VITALS: BP 130/77
--- NOTE | 2019-06-06 12:12 | NUR ---
pt was placed on RA before the walk study and dipped down to 86% therefore pt was placed on 3 liters of O2 to walk and did great on the 3 liters. Addendum: 06/06/19 at 1213 by PIPER CHISHOLM RT Amended: Links added.
--- NOTE | 2019-06-06 13:17 | Consultation-Cardiology ---
HPI-Cardiology Cardiology Consultation: Date of Consultation 06/06/19 Date of Admission Attending Physician Jose Escobedo MD Admitting Physician No,Local Physician Consulting Physician Rogelio BRAR MD HPI: Time Seen by a Provider: 12:00 Review of Systems-Cardiology All Other Systems Reviewed Negative Unless Noted: Yes [id number] Hx Patient Social History Marrital Status: Employed/Student: retired Alcohol Use: Regular Use Recreational Drug Use: Yes Drug of Choice: cbd oil Smoking Status: Former Smoker Type Used: Cigarettes Recent Foreign Travel: No Recent Infectious Disease Expo: No Past Medical History PMH As described under Assessment. Allergies and Home Medications Allergies Coded Allergies: No Known Drug Allergies (Unverified , 11/12/09) Home Medications Albuterol Sulfate 6.7 Gm Hfa.aer.ad, 2 PUFF INH Q6H Prescribed by: JOSE ESCOBEDO on 06/06/19 1003 Amlodipine Besylate 10 Mg Tablet, 10 MG PO DAILY, (Reported) Aspirin 81 Mg Tablet.dr, 81 MG PO DAILY, (Reported) Atorvastatin Calcium 20 Mg Tablet, 20 MG PO HS, (Reported) Carvedilol 12.5 Mg Tablet, 12.5 MG PO BID, (Reported) Clopidogrel Bisulfate 75 Mg Tablet, 75 MG PO DAILY, (Reported) Ibuprofen 200 Mg Tablet, 400 MG PO BID, (Reported) Lisinopril 40 Mg Tablet, 40 MG PO HS, (Reported) Multivitamin 1 Each Tablet, 1 EACH PO DAILY, (Reported) Niacinamide 500 Mg Tablet, 500 MG PO HS, (Reported) [place]-3/Dha/Epa/Fish Oil 1 Each Capsule.dr, 2 EACH PO DAILY, (Reported) [place]-3/Dha/Epa/Fish Oil 1 Each Capsule.dr, 1 EACH PO HS, (Reported) Prednisone 20 Mg Tab, 40 MG PO DAILY Prescribed by: JOSE ESCOBEDO on 06/06/19 1003 Ubidecarenone 200 Mg Capsule, 200 MG PO DAILY, (Reported) Physical Exam-Cardiology Physical Exam Vital Signs/I&O 06/06/19 06/06/19 06/06/19 06/06/19 01:50 04:15 06:10 07:56 Temp 37.0 36.8 Pulse 69 78 Resp 16 20 B/P (MAP) 102/62 (75) 118/75 (89) Pulse Ox 92 98 95 91 O2 Delivery Nasal Cannula Nasal Cannula Nasal Cannula Room Air O2 Flow Rate 2.00 1.00 1.00 06/06/19 06/06/19 06/06/19 08:00 11:24 11:30 Temp 36.8 Pulse 99 Resp 20 B/P (MAP) 130/77 (94) Pulse Ox 91 94 94 O2 Delivery Nasal Cannula Nasal Cannula Room Air O2 Flow Rate 0.50 1.00 1.00 06/06/19 00:00 Intake Total 2470 ml Output Total 4 ml Balance 2466 ml Capillary Refill : Less Than 3 SecondsNONE Data Review Labs Microbiology 06/04/19 Influenza Types A,B Antigen (SANJAY) - Final, Complete A/P-Cardiology Plan Echocardiogram pending. History of CABG. Thank you for your consultation. Please call me if you have any questions. Analy Brar MD, FACP, FACC, FSCAI, FHRS, CCDS Interventional Cardiology Cardiac Electrophysiology Vascular Medicine and Endovascular Interventions Clinical Quality Measures DVT/VTE Risk/Contraindication: Risk Factor Score Per Nursin RFS Level Per Nursing on Admit: 1=Low/No VTE PPX Rogelio BRAR MD Jun 06, 2019 13:17
--- NOTE | 2019-06-06 14:07 | Discharge Summary ---
Diagnosis/Chief Complaint Date of Admission Jun 04, 2019 at 17:15 Date of Discharge Discharge Date: Jun 06, 2019 Admission Diagnosis COPD Exacerbation Primary Care No,Local Physician Discharge Summary Discharge Physical Exam Allergies: Coded Allergies: No Known Drug Allergies (Unverified , 11/12/09) Vitals & I&Os Vital Signs Date Time Temp Pulse Resp B/P (MAP) Pulse Ox O2 Delivery O2 Flow Rate FiO2 06/06/19 14:38 36.8 99 20 130/77 92 Room Air 1.00 General Appearance: No Apparent Distress, WD/WN Respiratory: Lungs Clear, No Respiratory Distress Cardiovascular: Regular Rate, Rhythm, No Murmur Gastrointestinal: Normal Bowel Sounds, Non Tender, Soft Neurologic/Psychiatric: Alert, Oriented x3 Hospital Course Pt was admitted due to presumed COPD exacerbation. He has not been formally diagnosed with COPD but has a 40 year history and clinically symptoms matched a COPD exacerbation. He was treated with oral prednisone and breathing treatments which improved his symptoms. COVID19 testing was done and was negative. He was discharged home in stable condition to follow up with his PCP. He was tested for home oxygen and found to need 3lpm and this was arranged prior to discharge through [facility]. Cardiology was consulted and echo was done. Labs (last 24 hrs) Microbiology 06/04/19 Influenza Types A,B Antigen (SANJAY) - Final, Complete Patient resulted labs reviewed. Imaging: Reviewed Imaging Report Discussion & Recommendations Discharge Planning: >30 minutes discharge planning Discharge Home Medications: Active Scripts Active Proventil Hfa (Albuterol Sulfate) 6.7 Gm Hfa.aer.ad 2 Puff INH Q6H Prednisone 20 Mg Tab 40 Mg PO DAILY Reported Ibuprofen 200 Mg Tablet 400 Mg PO BID Fish Oil 1,400 mg Softgel ([place]-3/Dha/Epa/Fish Oil) 1 Each Capsule.dr 1 Each PO HS Clopidogrel (Clopidogrel Bisulfate) 75 Mg Tablet 75 Mg PO DAILY Lisinopril 40 Mg Tablet 40 Mg PO HS Multivitamin 1 Each Tablet 1 Each PO DAILY Niacin (Niacinamide) 500 Mg Tablet 500 Mg PO HS Co Q-10 (Ubidecarenone) 200 Mg Capsule 200 Mg PO DAILY Fish Oil 1,400 mg Softgel ([place]eno-3/Dha/Epa/Fish Oil) 1 Each Capsule.dr 2 Each PO DAILY Hydrochlorothiazide 25 Mg Tablet 25 Mg PO Carvedilol 12.5 Mg Tablet 12.5 Mg PO BID Aspir 81 (Aspirin) 81 Mg Tablet. 81 Mg PO DAILY Atorvastatin Calcium 20 Mg Tablet 20 Mg PO HS Amlodipine Besylate 10 Mg Tablet 10 Mg PO DAILY Instructions to patient/family Please see electronic discharge instructions given to patient. Clinical Quality Measures DVT/VTE Risk/Contraindication: Risk Factor Score Per Nursin RFS Level Per Nursing on Admit: 1=Low/No VTE PPX JOSE VALENTINE MD Jun 06, 2019 14:07
--- NOTE | 2019-06-06 14:22 | NUR ---
CM DISCHARGE PLANNING: Patient is being discharged to home with new need for oxygen. He has elected [facility] from [place], [place] for his DME provider. Oxygen has been delivered to the hospital et I picked up from the back dock et delivered to the patient room. When I entered the room he was not wearing his oxygen. We visited about the importance of wearing his oxygen continuous. He had many questions about oxygen et why he needed to wear it. Those questions were answered et he voiced that he would wear his oxygen until he followed up with his primary care physician. He did not put his oxygen back on. F/U with his primary care nurse Zohra with the above information.
[2019-06-06 14:38] VITALS: BP 130/77
== END 2019-06-06 14:38 | disposition home or self-care (01) ==
LOC: EDUNIT# 15:25 → ER 15:27 → 4TH 17:15
PROVIDERS: ADMIT Family Medicine; ATTEND Family Medicine
DX: J44.1 Chronic obstructive pulmonary disease with (acute) exacerbation (principal); I25.10 Atherosclerotic heart disease of native coronary artery without angina pectoris; I10 Essential (primary) hypertension; I48.91 Unspecified atrial fibrillation; I25.2 Old myocardial infarction; E78.5 Hyperlipidemia, unspecified; E78.00 Pure hypercholesterolemia, unspecified; Z79.82 Long term (current) use of aspirin; Z79.899 Other long term (current) drug therapy; Z79.02 Long term (current) use of antithrombotics/antiplatelets; Z87.891 Personal history of nicotine dependence; Z95.1 Presence of aortocoronary bypass graft
CPT/HCPCS: 36415; 71046; 80053; 82150; 83615; 83690; 83735; 83874; 83880; 84145; 84484; 85025; 85379; 85610; 85730; 86141; 87635; 87804; 93005; 93041; 93306; 94640; 94760; 94761; G0378

== ENCOUNTER → 2019-08-22 | Outpatient (CLI) | payer MEDICARE ==
[~2019-08-22] VITALS: Ht 182 cm; Wt 105.0 kg
[~2019-08-22] MED LIST changes: +CATHETER FLUSH 10 ML SYR IV PRN; +CLOP75TA28 PO; +HYDR25TA4 PO; +IBUP-2473 PO; +MULT-1136 PO; +NIAC500T24 PO; +PRD20T PO; +REGADENOSON 0.4 MG/5 ML SYR (LEXISCAN) IV ONE; +RT-ALBUINH INH; +UBID200C16 PO
[2019-08-22 09:17] VITALS: BP 140/85
--- NOTE | 2019-08-22 14:37 | Cardiology Stress Test Report ---
Stress Test Report Date of Procedure/Referring: Date of Procedure: Aug 22, 2019 PCP Derek Cooper MD Admitting Physician No,Local Physician Indications: CAD Baseline Blood Pressure: Blood Pressure Systolic: 140 Blood Pressure Diastolic: 85 Baseline Vitals Vital Signs Date Time Temp Pulse Resp B/P (MAP) Pulse Ox O2 Delivery O2 Flow Rate FiO2 08/22/19 09:17 73 18 140/85 (103) 98 Room Air Baseline EKG: Baseline EKG: Atrial fibrillation Summary After explaining the procedure to the patient, he signed a consent and then brought to the stress nuclear laboratory. Patient received 0.4 mg Lexiscan for stress test, ECG, heart rate and blood pressure were monitored continuously. Resting and stress dose of radio tracer were injected, imaging was acquired and reviewed in short axis, horizontal long axis and vertical long axis views. TID: 1.07 SSS: 7 SDS: 6 EF: 56 1. Patient tolerated Lexiscan well 2. Baseline atrial fibrillation persisted during test 3. Reversible ischemia involving the mid to apical inferior wall, anteroapical segment 4. Normal LV size, EF 56 percent DEREK COOPER MD Aug 22, 2019 14:37
== END ==
LOC: CARD 07:52
PROVIDERS: ATTEND Internal Medicine Cardiovascular Disease
DX: I25.10 Atherosclerotic heart disease of native coronary artery without angina pectoris (principal); I63.9 Cerebral infarction, unspecified; I10 Essential (primary) hypertension; E78.5 Hyperlipidemia, unspecified; I65.29 Occlusion and stenosis of unspecified carotid artery
CPT/HCPCS: 78452; 93017; A9502

== ENCOUNTER 2019-08-29 09:01 | Day surgery (SDC) | payer MEDICARE ==
[~2019-08-29] VITALS: Ht 180 cm; Wt 105.0 kg
[2019-08-29] VITALS (19 sets, daily range): BP systolic 108–145; BP diastolic 67–89
[~2019-08-29 09:01] MED LIST changes: -CATHETER FLUSH 10 ML SYR IV PRN; -REGADENOSON 0.4 MG/5 ML SYR (LEXISCAN) IV ONE
--- OUTSIDE RECORDS SUMMARY | 2019-08-29 09:12 | XMS REPORT ---
Author Author Shiva PICKARD Organization [facility] Address [address] [place], [place] [id number] Care Team Providers Care Butcher Helper Name Role Phone LUCIA PICKARD PCP Unavailable Allergies and Adverse Reactions Name Reaction Notes NO KNOWN DRUG ALLERGIES Plan of Treatment Not available. Medications Active Name Start Date Estimated Completion Date SIG Co mments ibuprofen 200 mg oral tablet candy e 1 tablet (200 mg) by oral route every 6 hours as needed with food Coreg 6.25 mg oral tablet take 1 tablet (6.25 mg) by oral route 2 times per day with food clopidogrel 75 mg oral tablet ta ke 1 tablet (75 mg) by oral route once daily Crestor 10 mg oral tablet take 1 tablet (10 mg) by oral route once daily at bedtime lisinopril 40 mg oral tablet take 1 table t (40 mg) by oral route once daily Niaspan Extended-Release 500 mg oral tablet extended release 24 hr take 1 tablet (500 mg) by oral route once daily at bedtime after a low-fat snack ranitidine HCl 150 mg oral capsule take 1 capsule (150 mg) by oral route 2 times per day Co Q-10 200 mg oral capsule take 1 capsul e by oral route daily Fish Oil Triple Strength Oral 1400mg x 3 aspirin 325 mg oral tablet take 1 tablet by oral route daily Tussionex Pennkinetic ER 10-8 mg/5 mL oral suspension, extended rel 12 hr 02/13/2014 take 5 milliliters by oral route every 1 2 hours PRN cough triamcinolone acetonide 0.5 % topical cream 02/13/2014 apply a thin layer to the affected area(s) by topical route 3 times per day Flonase 50 mcg/actuation nasal spray,suspension 02/13/2014 inhale 1 spray (50 mcg) in each nostril by intranasal route 2 times per day PRN Name Start Date Expiration Date SIG Comments amoxicillin 875 mg oral tablet 02/13/2014 02/23/2014 t lavern 1 tablet (875 mg) by oral route every 12 hours for 10 days Discontinued Name Start Date Discontinued Date SIG Comments zinc 50 mg oral tablet 02/13/2014 take 1 tablet by o ral route daily magnesium 200 mg oral tablet 02/13/2014 candy e 1 tablet by oral route 2 times a day triamcinolone acetonide 0.5 % topical ointment 11/02/2012 1 apply a thin layer to the affected area(s) by topical route 3 times per day Celebrex 200 mg oral capsule 11/02/2012 02/13/2014 candy e 1 capsule (200 mg) by oral route once daily as needed Problem List Description Status Onset Cancer Active Heart disease Active Hyperlipidemia Active Hypertension Active Stroke Active Vital Signs Date Time BP-Sys(mm[Hg] BP-Marli(mm[Hg]) HR(bpm) RR(rpm) Temp WT HT HC BMI BSA BMI Percentile O2 Sat(%) 02/13/2014 8:28:00 AM 124 mmHg 64 mmHg 57 bpm 18 rpm 96.7 F 217.062 lbs 72 in 29.44 kg/m2 2.24 m2 98 % 11/02/2012 8:42:00 AM 150 mmHg 100 mmHg 53 bpm 18 rpm 96.8 F 215 lbs 72 in 29.1589 kg/m 2.2258 m 99 % Social History Name Description Comments Tobacco Current every day smoker Alcohol History of Procedures Date Ordered Description Order Status 12/18/2012 12:00 AM ROUTINE VENIPUNCTURE Reviewed 12/18/2012 12:00 AM LIPID PANEL Returned 12/18/2012 12:00 AM HEPATIC FUNCTION PANEL Returned 03/26/2014 12:00 AM ROUTINE VENIPUNCTURE Reviewed 09/26/2014 12:00 AM ROUTINE VENIPUNCTURE Reviewed Results Summary Data and Description Results 12/18/2012 2:14 PM TRIGLYCERIDES 47.0 mg/dLCHOL ESTEROL 132.0 mg/dLHDL 62.0 mg/dLLDL (CALC) 61.0 mg/dLSGOT/AST 21.0 IU/LSGPT/ALT 23.0 IU/LALK PHOS 49.0 IU/LTOTAL PROTEIN 6.80 g/dLALBUMIN 4.30 g/dLTOTAL BILI 1.0 mg/dLDIRECT BILI 0.50 mg/dLINDIRECT BILI 0.50 mg/dL History Of Immunizations Not available. History of Past Illness Name Date of Onset Comments Cancer skin Heart disease Hyperlipidemia Hypertension Stroke Cancer Nov 02 2012 8:45AM Heart Disease Nov 02 2012 8:45AM Hyperlipidemia Nov 02 2012 8:45AM Hypertension Nov 02 2012 8:45AM Stroke Nov 02 2012 8:45AM Hyperlipidemia Dec 18 2012 8:36AM Acute sinusitis Feb 13 2014 8:31AM Laboratory examination May 23 2014 12:11PM Hypertension Sep 26 2014 8:27AM Laboratory examination Jun 23 2015 12:54PM Payers Insurance Name Company Name Plan Name Plan Number Policy Number Alberto cy Group Number Start Date Medicare Part A Medicare Part A [id number] October [id number] 2012 History of Encounters Visit Date Visit Type Provider 04/03/2015 Laboratory LUCIA PICKARD CHART CALCULATOR 09/26/2014 Laboratory LUCIA PICKARD CHART CALCULATOR 03/26/2014 Laboratory LUCIA PICKARD CHART CALCULATOR 02/13/2014 Office visit LUCIA PICKARD CHART CALCULATOR 12/18/2012 Laboratory LUCIA PICKARD CHART CALCULATOR 11/02/2012 Office visit LUCIA PICKARD CHART CALCULATOR
--- OUTSIDE RECORDS SUMMARY | 2019-08-29 09:12 | XMS REPORT ---
Author Author Shiva Yates Organization [facility] Address [address] [place], [place] [id number] Care Team Providers Care Application Lead Name Role Phone Neema Yates PCP Allergies and Adverse Reactions Name Reaction Notes [...] take 1 tablet by oral route daily triamcinolone acetonide 0.5 % topical cream 02/13/2014 apply a thin layer to the affected area(s) by topical route 3 times per day ibuprofen 800 mg oral tablet 10/04/2016 candy e 1 tablet (800 mg) by oral route 3 times per day with food PRN Name Start Date Expiration Date SIG Comments Tussionex Pennkinetic ER 10-8 mg/5 mL oral suspension, extended rel 12 hr 02/13/2014 take 5 milliliters by oral route every 1 2 hours PRN cough amoxicillin 875 mg oral tablet 02/13/2014 02/23/2014 t lavern 1 tablet (875 mg) by oral route every 12 hours for 10 days Flonase 50 mcg/actuation nasal spray,suspension 02/13/2014 inhale 1 spray (50 mcg) in each nostril by intranasal route 2 times per day PRN doxycycline monohydrate 100 mg oral tablet 06/17/2016 017 take 1 tablet (100 mg) by oral route 2 times per day for 5 days valacyclovir 1 gram oral tablet 10/04/2016 10/11/2016 take 1 tablet (1,000 mg) by oral route 3 times per day for 7 days Discontinued Name Start Date Discontinued Date [...] HC BMI BSA BMI Percentile O2 Sat(%) 10/04/2016 9:06:00 AM 138 mmHg 78 mmHg 68 bpm 17 rpm 97.2 F 236.25 lbs 72 i n 32.0409 kg/m 2.3332 m 97 % 06/08/2016 11:04:00 AM 142 mmHg 88 mmHg 73 bpm 17 rpm 97.2 F 232 lbs 72 in 31.46 kg/m2 2.31 m2 93 % 02/13/2014 8:28:00 AM 124 mmHg 64 mmHg 57 bpm 18 rpm 96.7 F 217.062 lbs 72 in 29.4387 kg/m 2.2364 m 98 % 11/02/2012 8:42:00 AM 150 mmHg 100 mmHg 53 bpm 18 rpm 96.8 F 215 lbs 72 in 29.1589 kg/m 2.23 m2 99 % Social History Name Description Comments Tobacco Current every day smoker Alcohol History of Procedures Date Ordered Description Order Status 06/23/2015 12:00 AM ROUTINE VENIPUNCTURE Reviewed 10/04/2017 12:00 AM COLLECTION VENOUS BLOOD VENIPUNCTURE Rev iewed 12/18/2012 12:00 AM ROUTINE VENIPUNCTURE Reviewed 12/18/2012 12:00 AM LIPID PANEL Reviewed 12/18/2012 12:00 AM HEPATIC FUNCTION PANEL Reviewed 03/26/2014 12:00 AM ROUTINE VENIPUNCTURE Reviewed 09/26/2014 12:00 AM ROUTINE VENIPUNCTURE Reviewed Results Summary Date and Description Results 12/18/2012 2:14 PM TRIGLYCERIDES 47.0 mg/dLCHOL ESTEROL 132.0 mg/dLHDL 62.0 mg/dLTOT CHOL/HDL 2.1 LDL (CALC) 61.0 mg/dLSGOT/AST 21.0 IU/LSGPT/ALT 23.0 IU/LALK [...] 8:27AM Laboratory examination Jun 23 2015 12:54PM Acute bronchitis, unspecified organism Jun 08 2016 11:06AM Herpes zoster without complication Oct 04 2016 9:11AM Laboratory examination Oct 04 2017 10:07AM Payers Insurance Name Company Name Plan Name Plan Number Policy Number Alberto cy Group Number Start Date Medicare RH Medicare RH [id number] 2012 BCBS [employer] [place] [id number] 2012 Medicare Part A Medicare - Lab/Xray [id number] October Medicare RH Medicare RHC [id number] TueMay 15, 2012 Medicare Part A Medicare Part A [id number] October History of Encounters Visit Date Visit Type Provider 09/22/2017 Laboratory Neema NOBLES 10/04/2016 Office visit LUCIA PICKARD DIALYSIS CHIEF EQUIPMENT TECHNICIAN 06/08/2016 Office visit Neema NOBLES 04/03/2015 Laboratory LUCIA PICKARD DIALYSIS CHIEF EQUIPMENT TECHNICIAN 09/26/2014 Laboratory LUCIA PICKARD DIALYSIS CHIEF EQUIPMENT TECHNICIAN 03/26/2014 Laboratory LUCIA PICKARD DIALYSIS CHIEF EQUIPMENT TECHNICIAN 02/13/2014 Office visit LUCIA PICKARD DIALYSIS CHIEF EQUIPMENT TECHNICIAN 12/18/2012 Laboratory LUCIA PICKARD DIALYSIS CHIEF EQUIPMENT TECHNICIAN 11/02/2012 Office visit LUCIA PICKARD DIALYSIS CHIEF EQUIPMENT TECHNICIAN
--- OUTSIDE RECORDS SUMMARY | 2019-08-29 09:12 | XMS REPORT ---
Author Author Shiva Yates Organization [facility] Address [address] [place], [place] [id number] Care Team Providers Care Senior System Operator Name Role Phone Neema Yates PCP Allergies [...] Number Start Date Medicare RH Medicare RH [id number] 2012 BCBS [employer] [place] [id number] 2012 Medicare Part A Medicare - Lab/Xray [id number] October Medicare RH Medicare RHC [id number] TueMay 15, 2012 Medicare Part A Medicare Part A [id number] October History of Encounters Visit Date Visit Type Provider 09/22/2017 Laboratory Neema NOBLES 10/04/2016 Office visit LUCIA PICKARD CHILDREN'S CHOIR DIRECTOR 06/08/2016 Office visit Neema NOBLES 04/03/2015 Laboratory LUCIA PICKARD CHILDREN'S CHOIR DIRECTOR 09/26/2014 Laboratory LUCIA PICKARD CHILDREN'S CHOIR DIRECTOR 03/26/2014 Laboratory LUCIA PICKARD CHILDREN'S CHOIR DIRECTOR 02/13/2014 Office visit LUCIA PICKARD CHILDREN'S CHOIR DIRECTOR 12/18/2012 Laboratory LUCIA PICKARD CHILDREN'S CHOIR DIRECTOR 11/02/2012 Office visit LUCIA PICKARD CHILDREN'S CHOIR DIRECTOR
--- OUTSIDE RECORDS SUMMARY | 2019-08-29 09:12 | XMS REPORT ---
Author Author Shiva Workman Organization [facility] Address [address] [place], [place] [id number] Care Team Providers Care Lockstitch Cup Setter Name Role Phone Natali Workman PCP Natali Workman PreferredProvider Allergies and Adverse Reactions Name Reaction Notes NO KNOWN DRUG ALLERGIES Plan of Treatment Not available. Medications Active Name Start Date Estimated Completion Date SIG Co mments ibuprofen 200 mg oral tablet candy e 1 tablet (200 mg) by oral route every 6 hours as needed with food clopidogrel 75 mg oral tablet ta ke 1 tablet (75 mg) by oral route once daily lisinopril 40 mg oral tablet take 1 table t (40 mg) by oral route once daily ranitidine HCl 150 mg oral capsule take 1 capsule (150 mg) by oral route 2 times per day Co Q-10 200 mg oral capsule take 1 capsul e by oral route daily Fish Oil Triple Strength Oral 1400mg x 3 amlodipine 10 mg oral tablet take 1 table t (10 mg) by oral route once daily carvedilol 12.5 mg oral tablet t lavern 1 tablet (12.5 mg) by oral route 2 times per day with food atorvastatin 20 mg oral tablet t lavern 1 tablet (20 mg) by oral route once daily niacin 500 mg oral tablet extended release take 1 tablet (500 mg) by oral route once daily Aspirin Low Dose 81 mg oral tablet,delayed release (DR/EC) Tessalon Perles 100 mg oral capsule 04/25/2019 take 2 capsules (200 mg) by oral route 3 times per day as needed for cough Name Start Date Expiration Date SIG Comments Coreg 6.25 mg oral tablet take 1 tablet (6.25 mg) by oral route 2 times per day with food Crestor 10 mg oral tablet take 1 tablet (10 mg) by oral route once daily at bedtime Niaspan Extended-Release 500 mg oral tablet extended release 24 hr take 1 tablet (500 mg) by oral route once daily at bedtime after a low-fat snack Tussionex Pennkinetic ER 10-8 mg/5 mL oral suspension, extended rel 12 hr 02/13/2014 take 5 milliliters by oral route every 1 2 hours PRN cough triamcinolone acetonide 0.5 % topical cream 02/13/2014 apply a thin layer to the affected area(s) by topical route 3 times per day amoxicillin 875 mg oral tablet 02/13/2014 02/23/2014 [...] 3 times per day for 7 days ibuprofen 800 mg oral tablet 10/04/2016 candy e 1 tablet (800 mg) by oral route 3 times per day with food PRN amoxicillin-pot clavulanate 875-125 mg oral tablet 04/25/2019 04/30/2019 take 1 tablet by oral route every 12 hours for 5 days Discontinued Name Start Date Discontinued Date SIG Comments aspirin 325 mg oral tablet 04/19/2019 take 1 tablet by oral route daily zinc 50 mg oral tablet 02/13/2014 take [...] HC BMI BSA BMI Percentile O2 Sat(%) 04/19/2019 10:41:00 AM 110 mm[Hg] 72 mm[Hg] 76 {beats}/min 14 rpm 98.6 F 241 lbs 72 in 32.6851 kg/m2 2.3565 m2 94 % 10/04/2016 9:06:00 AM 138 mm[Hg] 78 mm[Hg] 68 {beats}/min 17 rpm 97.2 F 236.25 lbs 72 in 32.04 kg/m2 2.33 m2 97 % 06/08/2016 11:04:00 AM 142 mm[Hg] 88 mm[Hg] 73 {beats}/min 17 rpm 97.2 F 232 lbs 72 in 31.4645 kg/m2 2.3121 m2 93 % 02/13/2014 8:28:00 AM 124 mm[Hg] 64 mm[Hg] 57 {beats}/min 18 rpm 96.7 F 217.062 lbs 72 in 29.44 kg/m2 2.24 m2 98 % 11/02/2012 8:42:00 AM 150 mm[Hg] 100 mm[Hg] 53 {beats}/min 18 rpm 96.8 F 215 lbs 72 in 29.1589 kg/m2 2.2258 m2 99 % Social History Name Description [...] 9:11AM Laboratory examination Oct 04 2017 10:07AM Cough Apr 19 2019 10:43AM Respiratory infection Apr 19 2019 10:43AM COVID-19 ruled out Aug 27 2019 8:05AM Payers Insurance Name Company Name Plan Name Plan Number Policy Number Alberto cy Group Number Start Date Medicare RHC Medicare RHC [id number] 2012 BCBS [facility]cbs [facility] [id number] 2012 Medicare Part A Medicare - Lab/Xray [id number] October Medicare RHC Medicare RHC [id number] TueMay 15, 2012 Medicare Part A Medicare Part A [id number] October History of Encounters Visit Date Visit Type Provider 08/27/2019 Laboratory Cele Michel MA 04/19/2019 Office visit Natali RICHARDS RN 09/22/2017 Laboratory Neema NOBLES 10/04/2016 Office visit LUCIA PICKARD PMP PROJECT MANAGER 06/08/2016 Office visit Neema NOBLES 04/03/2015 Laboratory LUCIA PICKARD PMP PROJECT MANAGER 09/26/2014 Laboratory LUCIA PICKARD PMP PROJECT MANAGER 03/26/2014 Laboratory LUCIA PICKARD PMP PROJECT MANAGER 02/13/2014 Office visit LUCIA PICKARD PMP PROJECT MANAGER 12/18/2012 Laboratory LUCIA PICKARD PMP PROJECT MANAGER 11/02/2012 Office visit LUCIA PICKARD PMP PROJECT MANAGER
--- OUTSIDE RECORDS SUMMARY | 2019-08-29 09:12 | XMS REPORT ---
Author Author Shiva PICKARD Organization [facility] Address [address] [place], [place] [id number] Care Team Providers Care Truck Dock Material Mover Name Role Phone LUCIA PICKARD PCP Unavailable [...] by topical route 3 times per day valacyclovir 1 gram oral tablet 10/04/2016 10/11/2016 [...] 2 times per day for 5 days Discontinued Name Start Date [...] 97.2 F 236.25 lbs 72 i n 32.04 kg/m2 2.33 m2 97 % 06/08/2016 11:04:00 AM 142 mmHg 88 mmHg 73 bpm 17 rpm 97.2 F 232 lbs 72 in 31.4645 kg/m 2.3121 m 93 % 02/13/2014 8:28:00 AM 124 mmHg [...] Status 06/23/2015 12:00 AM ROUTINE VENIPUNCTURE Reviewed 12/18/2012 12:00 AM ROUTINE VENIPUNCTURE Reviewed 12/18/2012 [...] zoster without complication Oct 04 2016 9:11AM Payers Insurance Name Company Name Plan Name Plan Number Policy Number Alberto cy Group Number Start Date Medicare [facility] Medicare [facility] [id number] TueMay 15, [id number] 2012 Medicare Part A Medicare - Lab/Xray [id number] October Medicare Part A Medicare Part A [id number] October History of Encounters Visit Date Visit Type Provider 10/04/2016 Office visit LUCIA PICKARD FLUME WORKER 06/08/2016 Office visit Neema Yates TALENT ACQUISITION SOURCER 04/03/2015 Laboratory LUCIA PICKARD FLUME WORKER 09/26/2014 Laboratory LUCIA PICKARD FLUME WORKER 03/26/2014 Laboratory LUCIA PICKARD FLUME WORKER 02/13/2014 Office visit LUCIA PICKARD FLUME WORKER 12/18/2012 Laboratory LUCIA PICKARD FLUME WORKER 11/02/2012 Office visit LUCIA PICKARD FLUME WORKER
--- OUTSIDE RECORDS SUMMARY | 2019-08-29 09:12 | XMS REPORT ---
Author Author Shiva Workman Organization [facility] Address [address] [place], [place] [id number] Care Team Providers Care Reservation Manager Name Role Phone Natali Workman PCP Natali [...] Number Start Date Medicare RHC Medicare RHC [id number] 2012 BCBS Bcbs [facility] [id number] 2012 Medicare Part A Medicare - Lab/Xray [id number] October Medicare RHC Medicare RHC [id number] TueMay 15, 2012 Medicare Part A Medicare Part A [id number] October History of Encounters Visit Date Visit Type Provider 08/27/2019 Laboratory Cele Michel MA 04/19/2019 Office visit Natali RICHARDS RN 09/22/2017 Laboratory Neema NOBLES 10/04/2016 Office visit LUCIA PICKARD HONING MACHINE TRY OUT SETTER 06/08/2016 Office visit Neema NOBLES 04/03/2015 Laboratory LUCIA PICKARD HONING MACHINE TRY OUT SETTER 09/26/2014 Laboratory LUCIA PICKARD HONING MACHINE TRY OUT SETTER 03/26/2014 Laboratory LUCIA PICKARD HONING MACHINE TRY OUT SETTER 02/13/2014 Office visit LUCIA PICKARD HONING MACHINE TRY OUT SETTER 12/18/2012 Laboratory LUCIA PICKARD HONING MACHINE TRY OUT SETTER 11/02/2012 Office visit LUCIA PICKARD HONING MACHINE TRY OUT SETTER
--- OUTSIDE RECORDS SUMMARY | 2019-08-29 09:12 | XMS REPORT ---
Author Author [facility] Organization [facility] Address [address] [place], [place] [address] Care Team Providers Care Battalion Chief Name Role Phone PCP Unavailable Allergies and Adverse Reactions Name Reaction Notes NO KNOWN DRUG ALLERGIES Plan of Treatment Not available. Medications Active Name Start Date Estimated Completion Date SIG Co mments ibuprofen Oral tablet 200 mg candy e 1 tablet (200 mg) by oral route every 6 hours as needed with food Coreg Oral tablet 6.25 mg take 1 tablet (6.25 mg) by oral route 2 times per day with food clopidogrel Oral tablet 75 mg ta ke 1 tablet (75 mg) by oral route once daily Crestor Oral tablet 10 mg take 1 tablet (10 mg) by oral route once daily at bedtime lisinopril Oral tablet 40 mg take 1 table t (40 mg) by oral route once daily Niaspan Extended-Release Oral tablet extended release 24 hr 500 mg take 1 tablet (500 mg) by oral route once daily at bedtime after a low-fat snack ranitidine HCl Oral capsule 150 mg take 1 capsule (150 mg) by oral route 2 times per day Co Q-10 Oral capsule 200 mg take 1 capsul e by oral route daily Fish Oil Triple Strength Oral 1400mg x 3 aspirin Oral tablet 325 mg take 1 tablet by oral route daily Tussionex Pennkinetic ER oral suspension,extended rel 12 hr 8-10 mg/5 mL 02/13/2014 take 5 milliliters by oral route every 1 2 hours PRN cough triamcinolone acetonide topical cream 0.5 % 02/13/2014 apply a thin layer to the affected area(s) by topical route 3 times per day Flonase nasal spray,suspension 50 mcg/actuation 02/13/2014 inhale 1 spray (50 mcg) in each nostril by intranasal route 2 times per day PRN Name Start Date Expiration Date SIG Comments amoxicillin oral tablet 875 mg 02/13/2014 02/23/2014 t lavern 1 tablet (875 mg) by oral route every 12 hours for 10 days Discontinued Name Start Date Discontinued Date SIG Comments zinc Oral tablet 50 mg 02/13/2014 take 1 tablet by o ral route daily magnesium Oral tablet 200 mg 02/13/2014 candy e 1 tablet by oral route 2 times a day triamcinolone acetonide Topical Ointment 0.5 % 11/02/2012 1 apply a thin layer to the affected area(s) by topical route 3 times per day Celebrex Oral capsule 200 mg 11/02/2012 02/13/2014 candy e 1 capsule (200 [...] VENIPUNCTURE Reviewed 09/26/2014 12:00 AM ROUTINE VENIPUNCTURE Ordered Results Summary Data and Description Results 12/18/2012 [...] 2014 12:11PM Hypertension Sep 26 2014 8:27AM Payers Insurance Name Company Name Plan Name Plan Number Policy Number Alberto cy Group Number Start Date Medicare Part A Medicare Part A [id number] [id number] 2012 History of Encounters Visit Date Visit Type Provider 09/26/2014 Laboratory LUCIA PICKARD POWDER PRESS OPERATOR 03/26/2014 Laboratory LUCIA PICKARD POWDER PRESS OPERATOR 02/13/2014 Office visit LUCIA IPCKARD POWDER PRESS OPERATOR 12/18/2012 Laboratory LUCIA PICKARD POWDER PRESS OPERATOR 11/02/2012 Office visit LUCIA PICKARD POWDER PRESS OPERATOR
--- OUTSIDE RECORDS SUMMARY | 2019-08-29 09:12 | XMS REPORT ---
Author Author Shiva Workman Organization [facility] Address [address] [place], [place] [id number] Care Team Providers Care Shoe Singer Name Role Phone Natali Workman PCP Natali [...] Dose 81 mg oral tablet,delayed release (DR/EC) amoxicillin-pot clavulanate 875-125 mg oral tablet 04/19/2019 04/26/2019 take 1 tablet by oral route every 12 hours for 7 days Name Start Date Expiration Date SIG Comments [...] 3 times per day with food PRN Discontinued Name Start Date Discontinued Date SIG [...] 10:43AM Respiratory infection Apr 19 2019 10:43AM Payers Insurance Name Company Name Plan Name Plan Number Policy Number Alberto cy Group Number Start Date Medicare RH Medicare RHC [id number] 2012 BCBS [facility]cbs [facility] [id number] 2012 Medicare Part A Medicare - Lab/Xray [id number] October Medicare RHC Medicare RHC [id number] TueMay 15, 2012 Medicare Part A Medicare Part A [id number] October History of Encounters Visit Date Visit Type Provider 04/19/2019 Office visit Natali RICHARDS RN 09/22/2017 Laboratory Neema NOBLES 10/04/2016 Office visit LUCIA PICKARD SHOW CARD WRITER 06/08/2016 Office visit Neema NOBLES 04/03/2015 Laboratory LUCIA PICKARD SHOW CARD WRITER 09/26/2014 Laboratory LUCIA PICKARD SHOW CARD WRITER 03/26/2014 Laboratory LUCIA PICKARD SHOW CARD WRITER 02/13/2014 Office visit LUCIA PICKARD SHOW CARD WRITER 12/18/2012 Laboratory LUCIA IPCKARD SHOW CARD WRITER 11/02/2012 Office visit LUCIA PICKARD SHOW CARD WRITER
--- OUTSIDE RECORDS SUMMARY | 2019-08-29 09:12 | XMS REPORT ---
Author Author Shiva PICKARD Organization [facility] Address [address] [place], [place] [id number] Care Team Providers Care Health And Wellness Manager Name Role Phone LUCIA PICKARD PCP Unavailable [...] Date Medicare Part A Medicare Part A [id number] October [id number] 2012 History of Encounters Visit Date Visit Type Provider 04/03/2015 Laboratory LUCIA PICKARD CUSTOMS BROKER 09/26/2014 Laboratory LUCIA PICKARD CUSTOMS BROKER 03/26/2014 Laboratory LUCIA PICKARD CUSTOMS BROKER 02/13/2014 Office visit LUCIA PICKARD CUSTOMS BROKER 12/18/2012 Laboratory LUCIA PICKARD CUSTOMS BROKER 11/02/2012 Office visit LUCIA PICKARD CUSTOMS BROKER
--- OUTSIDE RECORDS SUMMARY | 2019-08-29 09:12 | XMS REPORT ---
Author Author Shiva Workman Organization [facility] Address [address] [place], [place] [id number] Care Team Providers Care Family And Divorce Legal Assistant Name Role Phone Natali Workman PCP Natali [...] Number Start Date Medicare RHC Medicare RHC [id number] 2012 BCBS Bcbs [facility] [id number] 2012 Medicare Part A Medicare - Lab/Xray [id number] October Medicare RHC Medicare RHC [id number] TueMay 15, 2012 Medicare Part A Medicare Part A [id number] October History of Encounters Visit Date Visit Type Provider 08/27/2019 Laboratory Cele Michel MA 04/19/2019 Office visit Natali RICAHRDS RN 09/22/2017 Laboratory Neema NOBLES 10/04/2016 Office visit LUCIA PICKARD PLATE STACKER HAND 06/08/2016 Office visit Neema NOBLES 04/03/2015 Laboratory LUCIA PICKARD PLATE STACKER HAND 09/26/2014 Laboratory LUCIA PICKARD PLATE STACKER HAND 03/26/2014 Laboratory LUCIA PICKARD PLATE STACKER HAND 02/13/2014 Office visit LUCIA PICKARD PLATE STACKER HAND 12/18/2012 Laboratory LUCIA PICKARD PLATE STACKER HAND 11/02/2012 Office visit LUCIA PICKARD PLATE STACKER HAND
--- OUTSIDE RECORDS SUMMARY | 2019-08-29 09:13 | XMS REPORT ---
Author Author Shiva Yates Organization [facility] Address [address] [place], [place] [id number] Care Team Providers Care Diesel Truck Crane Operator Name Role Phone Neema Yates PCP [...] by topical route 3 times per day doxycycline monohydrate 100 mg oral tablet 06/08/2016 017 take 1 tablet (100 mg) by oral route 2 times per day for 7 days Name Start Date Expiration [...] intranasal route 2 times per day PRN Discontinued Name Start Date Discontinued Date [...] HC BMI BSA BMI Percentile O2 Sat(%) 06/08/2016 11:04:00 AM 142 mmHg 88 mmHg 73 bpm 17 rpm 97.2 F 232 lbs 72 in 31.46 kg/m2 2.31 m2 93 % 02/13/2014 8:28:00 AM 124 mmHg 64 mmHg 57 bpm 18 rpm 96.7 F 217.062 lbs 72 in 29.4387 kg/m 2.2364 m 98 % 11/02/2012 8:42:00 AM 150 mmHg 100 mmHg 53 bpm 18 rpm 96.8 F 215 lbs 72 in 29.16 kg/m2 2.23 m2 99 % Social History Name [...] bronchitis, unspecified organism Jun 08 2016 11:06AM Payers Insurance Name Company Name Plan Name Plan Number Policy Number Alberto cy Group Number Start Date Medicare RHC Medicare RHC [id number] TueMay 15, 2012 BCBS [facility] [place] [id number] 2012 Medicare Part A Medicare - Lab/Xray [id number] October Medicare Part A Medicare Part A [id number] October History of Encounters Visit Date Visit Type Provider 06/08/2016 Office visit Neema NOBLES 04/03/2015 Laboratory LUCIA PICKARD DIRECTOR PRESALES 09/26/2014 Laboratory LUCIA PICKARD DIRECTOR PRESALES 03/26/2014 Laboratory LUCIA PICKARD DIRECTOR PRESALES 02/13/2014 Office visit LUCIA PICKARD DIRECTOR PRESALES 12/18/2012 Laboratory LUCIA PICKARD DIRECTOR PRESALES 11/02/2012 Office visit LUCIA PICKARD DIRECTOR PRESALES
--- OUTSIDE RECORDS SUMMARY | 2019-08-29 09:13 | XMS REPORT ---
Author Author Shiva Yates Organization [facility] Address [address] [facility] [address] [place], [place] [phone] Care Team Providers Care Perinatal Director Name Role Phone Neema Yates PCP Allergies [...] by topical route 3 times per day Name Start Date Expiration Date SIG Comments [...] PRN doxycycline monohydrate 100 mg oral tablet 06/08/2016 017 take 1 tablet (100 mg) by oral route 2 times per day for 7 days Discontinued [...] Number Start Date Medicare RHC Medicare RHC [id number] TueMay 15, 2012 BCBS [facility]bs [facility] [place] [id number] 2012 Medicare Part A Medicare - Lab/Xray [id number] October Medicare Part A Medicare Part A [id number] October History of Encounters Visit Date Visit Type Provider 06/08/2016 Office visit Neema NOBLES 04/03/2015 Laboratory LUCIA PICKARD SENIOR WINDOWS ENGINEER 09/26/2014 Laboratory LUCIA PICKARD SENIOR WINDOWS ENGINEER 03/26/2014 Laboratory LUCIA PICKARD SENIOR WINDOWS ENGINEER 02/13/2014 Office visit LUCIA PICKARD SENIOR WINDOWS ENGINEER 12/18/2012 Laboratory LUCIA PICKARD SENIOR WINDOWS ENGINEER 11/02/2012 Office visit LUCIA PICKARD SENIOR WINDOWS ENGINEER
--- OUTSIDE RECORDS SUMMARY | 2019-08-29 09:13 | XMS REPORT ---
Author Author [facility] ou Organization [facility] Address [address] [place], [place] [address] Care Team Providers Care Oracle Soa Architect Name Role Phone PCP Unavailable Allergies and [...] Date Medicare Part A Medicare Part A [id number] October [id number] 2012 History of Encounters Visit Date Visit Type Provider 09/26/2014 Laboratory LUCIA PICKARD MANAGER BABY 03/26/2014 Laboratory LUCIA PICKARD MANAGER BABY 02/13/2014 Office visit LUCIA PICKARD MANAGER BABY 12/18/2012 Laboratory LUCIA PICKARD MANAGER BABY 11/02/2012 Office visit LUCIA PICKARD MANAGER BABY
--- OUTSIDE RECORDS SUMMARY | 2019-08-29 09:13 | XMS REPORT | Continuity of Care Document ---
Author Organization Unknown Address Unknown Phone Unavailable Allergies Active Description Code Type Severity Reaction Onset Reported/Identified Relationship to Patient Clinical Status Yes No Known Drug Allergies [id number] Drug Allergy Unknown N/A 11/12/2009 Medications There is no data. 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, CEREBRAL INFARCTION 05/18/2012 Ot V45.81 AOR TOCORONARY BYPASS 05/18/2012 Ot V45.82 PER CUTANEOUS TRANSLUM CORON ANGIOPLASTY 05/18/2012 Ot V58.63 RADHA G- TERM(CURRENT)USE OF ANTIPLATELET/AN 05/18/2012 Ot V58.69 OTH MED,LT,CURRENT USE 12/31/2015 Ot 719.46 KAMI NT PAIN-L/LEG 12/31/2015 Ot 397.0 TRIC USPID VALVE DISEASE 12/31/2015 Ot 401.9 HYPE RTENSION NOS 12/31/2015 Ot 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 12/31/2015 Ot 424.0 MITR AL VALVE DISORDER 12/31/2015 Ot 429.3 CARD IOMEGALY 12/31/2015 Ot 433.10 CAR OTID ARTERY OCCLUSION W O CEREBRAL IN 12/31/2015 Ot 401.9 HYPE RTENSION NOS 12/31/2015 Ot 414.00 COR ON ATHEROSCLER NOS TYPE VESSEL, NATIV 12/31/2015 TOM ONEAL Ot 272.4 HYPERLIPIDEMIA NEC/NOS 12/31/2015 JUDY ONEALDITH K Ot 397.0 TRICUSPID VALVE DISEASE 12/31/2015 COOL-STEPHANIE MADRIGAL, TOM K Ot 401.9 HYPERTENSION NOS 12/31/2015 COOL-STEPHANIE MADRIGAL, TOM K Ot 414.00 CORON ATHEROSCLER NOS TYPE VESSEL, NATIV 12/31/2015 COOL-STEPHANIE MADRIGAL TOM K Ot 424.0 MITRAL VALVE DISORDER 12/31/2015 COOL-STEPHANIE MADRIGAL TOM K Ot 272.4 HYPERLIPIDEMIA NEC/NOS 12/31/2015 COOL-STEPHANIE MADRIGAL, TOM K Ot 401.9 HYPERTENSION NOS 12/31/2015 JIM KAITLIN, TOM K Ot 414.00 CORON ATHEROSCLER NOS TYPE VESSEL, NATIV 12/31/2015 COOL-STEPHANIE MADRIGAL TOM K Ot 433.10 CAROTID ARTERY OCCLUSION W O CEREBRAL IN 01/01/2016 JIM MADRIGAL TOM K Ot E78.2 MIXED HYPERLIPIDEMIA 01/01/2016 JIM MADRIGAL TOM K Ot I10 ESSENTIAL (PRIMARY) HYPERTENSION 01/01/2016 COOL-STEPHANIE MADRIGAL TOM K Ot I25.10 ATHSCL HEART DISEASE OF [place] CORONARY 01/01/2016 COOL-STEPHANIE MADRIGAL, TOM K Ot I65.23 OCCLUSION AND STENOSIS OF BILATERAL [place]UE[place] 01/01/2016 COOL-STEPHANIE MADRIGAL TOM K Ot E78.2 MIXED HYPERLIPIDEMIA 01/01/2016 COOLAGATHA MADRIGAL TOM K Ot I10 ESSENTIAL (PRIMARY) HYPERTENSION 01/01/2016 COOLAGATHA MADRIGAL TOM K Ot I25.10 ATHSCL HEART DISEASE OF [place] CORONARY 01/01/2016 COOL-STEPHANIE MADRIGAL TOM K Ot I65.23 OCCLUSION AND STENOSIS OF BILATERAL [place] 01/15/2016 COOL-STEPHANIE MADRIGAL, TOM K Ot E78.2 MIXED HYPERLIPIDEMIA 01/15/2016 JIM MADRIGAL TOM K Ot I10 ESSENTIAL (PRIMARY) HYPERTENSION 01/15/2016 JIM MADRIGAL TOM K Ot I25.10 ATHSCL HEART DISEASE OF [place] CORONARY 01/15/2016 JIM MADRIGAL, TOM K Ot I65.23 OCCLUSION AND STENOSIS OF BILATERAL [place] 01/21/2016 COOLAGATHA MADRIGAL, TOM K Ot E78.2 MIXED HYPERLIPIDEMIA 01/21/2016 TOM ONEAL Ot I10 ESSENTIAL (PRIMARY) HYPERTENSION 01/21/2016 TOM ONEAL Ot I25.10 ATHSCL HEART DISEASE OF [place] CORONARY 01/21/2016 TOM ONEAL Ot I65.23 OCCLUSION AND STENOSIS OF BILATERAL [place] 01/21/2016 DEREK ANDERSON MD Ot E78. 5 HYPERLIPIDEMIA, UNSPECIFIED 01/21/2016 DEREK ANDERSON MD, Ot I10 ESSENTIAL (PRIMARY) HYPERTENSION 01/21/2016 DEREK ANDERSON MD, Ot I25. 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 84 CORONARY ATHEROSCLEROSIS DUE TO [place] 01/21/2016 DEREK ANDERSON MD Ot R94. 39 ABNORMAL RESULT OF OTHER CARDIOVASCULAR 01/21/2016 DEREK ANDERSON MD Ot T82.857D STENOSIS OF OTHER CARDIAC PROSTH DEV/GRF 01/21/2016 DEREK ANDERSON MD, Ot Z79.899 OTHER PENITENTIARY (CURRENT) DRUG THERAPY 01/21/2016 DEREK ANDERSON MD, Ot Z86. 73 PRSNL HX OF TIA (TIA), AND CEREB INFRC W 01/21/2016 DEREK ANDERSON MD Ot Z87.891 PERSONAL HISTORY OF NICOTINE DEPENDENCE 01/28/2016 TOM ONEAL Ot E78.2 MIXED HYPERLIPIDEMIA 01/28/2016 TOM ONEAL Ot I10 ESSENTIAL (PRIMARY) HYPERTENSION 01/28/2016 TOM ONEAL Ot I25.10 ATHSCL HEART DISEASE OF [place] CORONARY 01/28/2016 TOM ONEAL Ot I65.23 OCCLUSION AND STENOSIS OF BILATERAL [place] 02/04/2016 TOM ONEAL Ot E78.2 MIXED HYPERLIPIDEMIA 02/04/2016 TOM ONEAL Ot I10 ESSENTIAL (PRIMARY) HYPERTENSION 02/04/2016 TOM ONEAL Ot I25.10 ATHSCL HEART DISEASE OF [place] CORONARY 02/04/2016 TOM ONEAL Ot I65.23 OCCLUSION AND STENOSIS OF BILATERAL [place] 02/11/2016 TOM ONEAL Ot E78.2 MIXED HYPERLIPIDEMIA 02/11/2016 TOM ONEAL Ot I10 ESSENTIAL (PRIMARY) HYPERTENSION 02/11/2016 TOM ONEAL Ot I25.10 ATHSCL HEART DISEASE OF [place] CORONARY 02/11/2016 TOM ONEAL Ot I65.23 OCCLUSION AND STENOSIS OF BILATERAL [place] 02/25/2016 DEREK ANDERSON MD, Ot E78. 5 HYPERLIPIDEMIA, UNSPECIFIED 02/25/2016 DEREK ANDERSON MD, Ot I10 ESSENTIAL (PRIMARY) HYPERTENSION 02/25/2016 DEREK ANDERSON MD, Ot I25. 10 ATHSCL HEART DISEASE OF [place] CORONARY 02/25/2016 DEREK ANDERSON MD, Ot I25. 82 CHRONIC TOTAL OCCLUSION OF CORONARY [place]OME[place] 02/25/2016 DEREK ANDERSON MD, Ot I25. 84 CORONARY ATHEROSCLEROSIS DUE TO [place] 02/25/2016 DEREK ANDERSON MD Ot R94. 39 ABNORMAL RESULT OF OTHER CARDIOVASCULAR 02/25/2016 DEREK ANDERSON MD Ot T82.857D STENOSIS OF OTHER CARDIAC PROSTH DEV/GRF 02/25/2016 DEREK ANDERSON MD, Ot Z79.899 OTHER PENITENTIARY (CURRENT) DRUG THERAPY 02/25/2016 DEREK ANDERSON MD, Ot Z86. 73 PRSNL HX OF TIA (TIA), AND CEREB INFRC W 02/25/2016 DEREK ANDERSON MD, Ot Z87.891 PERSONAL HISTORY OF NICOTINE DEPENDENCE 05/08/2018 TOM ONEAL Ot 272.4 HYPERLIPIDEMIA NEC/NOS 05/08/2018 TOM ONEAL Ot 397.0 TRICUSPID VALVE DISEASE 05/08/2018 TOM ONEAL Ot 401.9 HYPERTENSION NOS 05/08/2018 TOM ONEAL Ot 414.00 CORON ATHEROSCLER NOS TYPE VESSEL, NATIV 05/08/2018 TOM ONEAL Ot 424.0 MITRAL VALVE DISORDER 05/08/2018 TOM ONEAL Ot 272.4 HYPERLIPIDEMIA NEC/NOS 05/08/2018 TOM ONEAL Ot 401.9 HYPERTENSION NOS 05/08/2018 JIM MADRIGAL TOM K Ot 414.00 CORON ATHEROSCLER NOS TYPE VESSEL, NATIV 05/08/2018 TOM ONEAL Ot 433.10 CAROTID ARTERY OCCLUSION W O CEREBRAL IN 05/08/2018 JIM MADRIGAL TOM K Ot E78.2 MIXED HYPERLIPIDEMIA 05/08/2018 JIM MADRIGAL TOM K Ot I10 ESSENTIAL (PRIMARY) HYPERTENSION 05/08/2018 JIM MADRIGAL TOM K Ot I25.10 ATHSCL HEART DISEASE OF [place] CORONARY 05/08/2018 JIM MADRIGAL TOM K Ot I65.23 OCCLUSION AND STENOSIS OF BILATERAL [place] 05/08/2018 JIM MADRIGAL TOM K Ot E78.2 MIXED HYPERLIPIDEMIA 05/08/2018 TOM ONEAL Ot I10 ESSENTIAL (PRIMARY) HYPERTENSION 05/08/2018 JIM MADRIGAL TOM K Ot I25.10 ATHSCL HEART DISEASE OF [place] CORONARY 05/08/2018 TOM ONEAL Ot I65.23 OCCLUSION AND STENOSIS OF BILATERAL [place] 05/10/2018 JIM MADRIGAL TOM K Ot E66.9 OBESITY, UNSPECIFIED 05/10/2018 TOM ONEAL Ot E78.5 HYPERLIPIDEMIA, UNSPECIFIED 05/10/2018 JIM MADRIGAL TOM K Ot I10 ESSENTIAL (PRIMARY) HYPERTENSION 05/10/2018 JIM MADRIGAL TOM K Ot I25.10 ATHSCL HEART DISEASE OF [place] CORONARY 05/10/2018 TOM ONEAL Ot I63.9 CEREBRAL INFARCTION, UNSPECIFIED 05/10/2018 TOM ONEAL Ot Z68.31 BODY MASS INDEX (BMI) 31.0-31.9, ADULT 05/12/2018 JUSTIN NEVAREZ, DEREK Hernández Ot E78. 5 HYPERLIPIDEMIA, UNSPECIFIED 05/12/2018 JUSTIN NEVAREZ, DEREK Hernández Ot I10 ESSENTIAL (PRIMARY) HYPERTENSION 05/12/2018 JUSTIN NEVAREZ, DEREK Hernández Ot I25. 10 ATHSCL HEART DISEASE OF [place] CORONARY 05/12/2018 DEREK ANDERSON MD Ot I65. 23 OCCLUSION AND STENOSIS OF BILATERAL [place] 05/12/2018 DEREK ANDERSON MD Ot N52. 9 MALE ERECTILE DYSFUNCTION, UNSPECIFIED 05/12/2018 DEREK ANDERSON MD Ot R07. 89 OTHER CHEST PAIN 05/12/2018 DEREK ANDERSON MD Ot Z79. 02 VESSEL MASTER (CURRENT) USE OF ANTITHROMBOTI 05/12/2018 DEREK ANDERSON MD Ot Z79. 82 PENITENTIARY (CURRENT) USE OF ASPIRIN 05/12/2018 DEREK ANDERSON MD Ot Z79.899 OTHER PENITENTIARY (CURRENT) DRUG THERAPY 05/12/2018 DEREK ANDERSON MD Ot Z86. 73 PRSNL HX OF TIA (TIA), AND CEREB INFRC W 05/12/2018 DEREK ANDERSON MD Ot Z87.891 PERSONAL HISTORY OF NICOTINE DEPENDENCE 05/12/2018 DEREK ANDERSON MD Ot Z95. 1 PRESENCE OF AORTOCORONARY BYPASS GRAFT 05/16/2018 DEREK ANDERSON MD Ot E78. 5 HYPERLIPIDEMIA, UNSPECIFIED 05/16/2018 DEREK ANDERSON MD Ot I10 ESSENTIAL (PRIMARY) HYPERTENSION 05/16/2018 DEREK ANDERSON MD Ot I25. 10 ATHSCL HEART DISEASE OF [place] CORONARY 05/16/2018 DEREK ANDERSON MD Ot I65. 23 OCCLUSION AND STENOSIS OF BILATERAL [place] 05/16/2018 DEREK ANDERSON MD Ot N52. 9 MALE ERECTILE DYSFUNCTION, UNSPECIFIED 05/16/2018 DEREK ANDERSON MD Ot R07. 89 OTHER CHEST PAIN 05/16/2018 DEREK ANDERSON MD Ot Z79. 02 PENITENTIARY (CURRENT) USE OF ANTITHROMBOTI 05/16/2018 DEREK ANDERSON MD Ot Z79. 82 VESSEL MASTER (CURRENT) USE OF ASPIRIN 05/16/2018 DEREK ANDERSON MD Ot Z79.899 OTHER VESSEL MASTER (CURRENT) DRUG THERAPY 05/16/2018 DEREK ANDERSON MD Ot Z86. 73 PRSNL HX OF TIA (TIA), AND CEREB INFRC W 05/16/2018 DEREK ANDERSON MD Ot Z87.891 PERSONAL HISTORY OF NICOTINE DEPENDENCE 05/16/2018 DEREK ANDERSON MD Ot Z95. 1 PRESENCE OF AORTOCORONARY BYPASS GRAFT 05/18/2018 DEREK ANDERSON MD Ot E78. 5 HYPERLIPIDEMIA, UNSPECIFIED 05/18/2018 DEREK ANDERSON MD, Ot I10 ESSENTIAL (PRIMARY) HYPERTENSION 05/18/2018 DEREK ANDERSON MD Ot I25. 10 ATHSCL HEART DISEASE OF [place] CORONARY 05/18/2018 DEREK ANDERSON MD Ot I65. 23 OCCLUSION AND STENOSIS OF BILATERAL [place] 05/18/2018 DEREK ANDERSON MD Ot N52. 9 MALE ERECTILE DYSFUNCTION, UNSPECIFIED 05/18/2018 DEREK ANDERSON MD Ot R07. 89 OTHER CHEST PAIN 05/18/2018 DEREK ANDERSON MD, Ot Z79. 02 PENITENTIARY (CURRENT) USE OF ANTITHROMBOTI 05/18/2018 DEREK ANDERSON MD, Ot Z79. 82 VESSEL MASTER (CURRENT) USE OF ASPIRIN 05/18/2018 DEREK ANDERSON MD, Ot Z79.899 OTHER PENITENTIARY (CURRENT) DRUG THERAPY 05/18/2018 DEREK ANDERSON MD, Ot Z86. 73 PRSNL HX OF TIA (TIA), AND CEREB INFRC W 05/18/2018 DEREK ANDERSON MD, Ot Z87.891 PERSONAL HISTORY OF NICOTINE DEPENDENCE 05/18/2018 DEREK ANDERSON MD, Ot Z95. 1 PRESENCE OF AORTOCORONARY BYPASS GRAFT 06/01/2018 TOM ONEAL Ot E66.9 OBESITY, UNSPECIFIED 06/01/2018 TOM ONEAL Ot E78.5 HYPERLIPIDEMIA, UNSPECIFIED 06/01/2018 TOM ONEAL Ot I10 ESSENTIAL (PRIMARY) HYPERTENSION 06/01/2018 TOM ONEAL Ot I25.10 ATHSCL HEART DISEASE OF [place] CORONARY 06/01/2018 TOM ONEAL Ot I63.9 CEREBRAL INFARCTION, UNSPECIFIED 06/01/2018 TOM ONEAL Ot Z68.31 BODY MASS INDEX (BMI) 31.0-31.9, ADULT 06/07/2018 TOM ONEAL Ot E66.9 OBESITY, UNSPECIFIED 06/07/2018 COOL-STEPHANIE PA, TOM K Ot E78.5 HYPERLIPIDEMIA, UNSPECIFIED 06/07/2018 TOM ONEAL Ot I10 ESSENTIAL (PRIMARY) HYPERTENSION 06/07/2018 TOM ONEAL Ot I25.10 ATHSCL HEART DISEASE OF [place] CORONARY 06/07/2018 TOM ONEAL Ot I63.9 CEREBRAL INFARCTION, UNSPECIFIED 06/07/2018 TOM ONEAL Ot Z68.31 BODY MASS INDEX (BMI) 31.0-31.9, ADULT 06/06/2019 JOSE VALENTINE MD Ot E78. 00 PURE HYPERCHOLESTEROLEMIA, UNSPECIFIED 06/06/2019 JOSE VALENTINE MD, Ot E78. 5 HYPERLIPIDEMIA, UNSPECIFIED 06/06/2019 JOSE VALENTINE MD, Ot I10 ESSENTIAL (PRIMARY) HYPERTENSION 06/06/2019 JOSE VALENTINE MD Ot I25. 10 ATHSCL HEART DISEASE OF [place] CORONARY 06/06/2019 JOSE VALENTINE MD Ot I25. 2 OLD MYOCARDIAL INFARCTION 06/06/2019 JOSE VALENTINE MD Ot I48. 91 UNSPECIFIED ATRIAL FIBRILLATION 06/06/2019 JOSE VALENTINE MD Ot J44. 1 CHRONIC OBSTRUCTIVE PULMONARY DISEASE W 06/06/2019 JOSE VALENTINE MD Ot Z20.828 CONTACT W AND EXPOSURE TO OTH VIRAL COMM 06/06/2019 JOSE VALENTINE MD Ot Z79. 02 PENITENTIARY (CURRENT) USE OF ANTITHROMBOTI 06/06/2019 JOSE VALENTINE MD Ot Z79. 82 PENITENTIARY (CURRENT) USE OF ASPIRIN 06/06/2019 JOSE VALENTINE MD Ot Z79.899 OTHER PENITENTIARY (CURRENT) DRUG THERAPY 06/06/2019 JOSE VALENTINE MD Ot Z87.891 PERSONAL HISTORY OF NICOTINE DEPENDENCE 06/06/2019 JOSE VALENTINE MD Ot Z95. 1 PRESENCE OF AORTOCORONARY BYPASS GRAFT 06/06/2019 JOSE VALENTINE MD Ot E78. 00 PURE HYPERCHOLESTEROLEMIA, UNSPECIFIED 06/06/2019 JOSE VALENTINE MD Ot E78. 5 HYPERLIPIDEMIA, UNSPECIFIED 06/06/2019 JOSE VALENTINE MD Ot I10 ESSENTIAL (PRIMARY) HYPERTENSION 06/06/2019 JOSE VALENTINE MD Ot I25. 10 ATHSCL HEART DISEASE OF [place] CORONARY 06/06/2019 JOSE VALENTINE MD Ot I25. 2 OLD MYOCARDIAL INFARCTION 06/06/2019 JOSE VALENTINE MD Ot I48. 91 UNSPECIFIED ATRIAL FIBRILLATION 06/06/2019 JOSE VALENTINE MD, Ot J44. 1 CHRONIC OBSTRUCTIVE PULMONARY DISEASE W 06/06/2019 JOSE VALENTINE MD Ot Z79. 02 VESSEL MASTER (CURRENT) USE OF ANTITHROMBOTI 06/06/2019 JOSE VALENTINE MD, Ot Z79. 82 PENITENTIARY (CURRENT) USE OF ASPIRIN 06/06/2019 JOSE VALENTINE MD, Ot Z79.899 OTHER VESSEL MASTER (CURRENT) DRUG THERAPY 06/06/2019 JOSE VALENTINE MD, Ot Z87.891 PERSONAL HISTORY OF NICOTINE DEPENDENCE 06/06/2019 JOSE VALENTINE MD, Ot Z95. 1 PRESENCE OF AORTOCORONARY BYPASS GRAFT 08/24/2019 DEREK ANDERSON MD Ot E78. 5 HYPERLIPIDEMIA, UNSPECIFIED 08/24/2019 DEREK ANDERSON MD Ot I10 ESSENTIAL (PRIMARY) HYPERTENSION 08/24/2019 DEREK ANDERSON MD, Ot I25. 10 ATHSCL HEART DISEASE OF [place] CORONARY 08/24/2019 DEREK ANDERSON MD Ot I63. 9 CEREBRAL INFARCTION, UNSPECIFIED 08/24/2019 DEREK ANDERSON MD Ot I65. 29 OCCLUSION AND STENOSIS OF UNSPECIFIED CA 08/28/2019 DEREK ANDERSON MD, Ot E78. 5 HYPERLIPIDEMIA, UNSPECIFIED 08/28/2019 DEREK ANDERSON MD Ot I10 ESSENTIAL (PRIMARY) HYPERTENSION 08/28/2019 DEREK ANDERSON MD Ot I25. 10 ATHSCL HEART DISEASE OF [place] CORONARY 08/28/2019 DEREK ANDERSON MD, Ot I63. 9 CEREBRAL INFARCTION, UNSPECIFIED 08/28/2019 DEREK ANDERSON MD, Ot I65. 29 OCCLUSION AND STENOSIS OF UNSPECIFIED CA Procedures There is no data. Results Test Result Range Automated blood complete blood count ( mogram) panel - 01/21/16 07:12 Blood leukocytes automated count (number/volume) 9.5 10*3/uL 4.3-11.0 Blood erythrocytes automated count (number/volume) 5.68 10*6/uL 4.35-5.85 Venous blood hemoglobin measurement (mass/volume) 15.8 g/dL 13.3-17.7 Blood hematocrit (volume fraction) 48 % 40-54 Automated erythrocyte mean corpuscular volume 85 [ foz_us] 80-99 Automated erythrocyte mean corpuscular h emoglobin (mass per erythrocyte) 28 pg 25-34 Automated erythrocyte mean corpuscular h emoglobin concentration measurement (mass/volume) 33 g/dL 32-36 Automated erythrocyte distribution width ratio 14. 3 % 10.0- 14.5 Automated blood platelet count (count/volume) 197 10*3/uL 130-400 Automated blood platelet mean volume measurement 12.0 [foz_us] 7.4-10.4 PT panel in platelet poor plasma by coag ulation assay - 01/21/16 07:12 Prothrombin time (PT) in platelet poor plasma by coagu lation assay 12.8 s 12.2-14.7 INR in platelet poor plasma or blood by coagulation as say 1.0 0.8-1.4 Activated partial thromboplastin time (a PTT) in platelet poor plasma bycoagulation assay - 01/21/16 07:12 Activated partial thromboplastin time (a PTT) in platelet poor plasma bycoagulation assay 25 s 24-35 Comprehensive metabolic panel - 01/21/16 07:12 Serum or plasma sodium measurement (moles/volume) 144 mmol/L 135-145 Serum or plasma potassium measurement (moles/volume) 3.8 mmol/L 3.6-5.0 Serum or plasma chloride measurement (moles/volume) 105 mmol/L 98-107 Carbon dioxide 28 mmol/L 21-32 Serum or plasma anion gap determination (moles/volume) 11 mmol/L 5-14 Serum or plasma urea nitrogen measurement (mass/volume ) 11 mg/dL 7-18 Serum or plasma creatinine measurement (mass/volume) 0.81 mg/dL 0.60-1.30 Serum or plasma urea nitrogen/creatinine mass ratio 14 NRG Serum or plasma creatinine measurement w ith calculation of estimated glomerular filtration rate > NRG Serum or plasma glucose measurement (mass/volume) 117 mg/dL 70-105 Serum or plasma calcium measurement (mass/volume) 9.3 mg/dL 8.5-10.1 Serum or plasma total bilirubin measurement (mass/volu me) 0.6 mg/dL 0.1-1.0 Serum or plasma alkaline phosphatase nima surement (enzymatic activity/volume) 50 U/L 40-136 Serum or plasma aspartate aminotransfera se measurement (enzymatic activity/volume) 20 U/L 5-34 Serum or plasma alanine aminotransferase measurement (enzymatic activity/volume) 25 U/L 0-55 Serum or plasma protein measurement (mass/volume) 7.4 g/dL 6.4-8.2 Serum or plasma albumin measurement (mass/volume) 4.6 g/dL 3.2-4.5 Lipid 1996 panel - 01/21/16 07:12 Serum or plasma triglyceride measurement (mass/volume) 82 mg/dL <150 Serum or plasma cholesterol measurement (mass/volume) 134 mg/dL < 200 Serum or plasma cholesterol in HDL measurement (mass/v olume) 44 mg/dL 40-60 Cholesterol in LDL [mass/volume] in serum or plasma by direct assay 74 mg/dL 1-129 Serum or plasma cholesterol in VLDL measurement (mass/ volume) 16 mg/dL 5-40 Methicillin resistant Staphylococcus aur eus (MRSA) screening culture - 01/21/16 07:12 Methicillin resistant Staphylococcus aureus (MRSA) scr eening culture NEG [facility] Liver function panel (serum or plasma al k phos, alb, total and direct bili, total protein, ALT, AST) - 05/08/18 07:12 Serum or plasma total bilirubin measurement (mass/volu me) 0.5 mg/dL 0.1-1.0 Serum or plasma alkaline phosphatase nima surement (enzymatic activity/volume) 46 U/L 40-136 Serum or plasma aspartate aminotransfera se measurement (enzymatic activity/volume) 28 U/L 5-34 Serum or plasma alanine aminotransferase measurement (enzymatic activity/volume) 36 U/L 0-55 Serum or plasma protein measurement (mass/volume) 7.1 g/dL 6.4-8.2 Serum or plasma albumin measurement (mass/volume) 4.3 g/dL 3.2-4.5 Bilirubin direct 0.2 mg/dL 0.0-0.3 Serum or plasma indirect bilirubin measurement (mass/v olume) 0.3 mg/dL NR Lipid 1996 panel - 05/08/18 07:12 Serum or plasma triglyceride measurement (mass/volume) 133 mg/dL <150 Serum or plasma cholesterol measurement (mass/volume) 139 mg/dL < 200 Serum or plasma cholesterol in HDL measurement (mass/v olume) 40 mg/dL 40-60 Cholesterol in LDL [mass/volume] in serum or plasma by direct assay 79 mg/dL 1-129 Serum or plasma cholesterol in VLDL measurement (mass/ volume) 27 mg/dL 5-40 Automated blood complete blood count (he mogram) panel - 05/12/18 07:00 Blood leukocytes automated count (number/volume) 8.2 10*3/uL 4.3-11.0 Blood erythrocytes automated count (number/volume) 5.61 10*6/uL 4.35-5.85 Venous blood hemoglobin measurement (mass/volume) 15.7 g/dL 13.3-17.7 Blood hematocrit (volume fraction) 47 % 40-54 Automated erythrocyte mean corpuscular volume 84 [ foz_us] 80-99 Automated erythrocyte mean corpuscular h emoglobin (mass per erythrocyte) 28 pg 25-34 Automated erythrocyte mean corpuscular h emoglobin concentration measurement (mass/volume) 33 g/dL 32-36 Automated erythrocyte distribution width ratio 14. 7 % 10.0- 14.5 Automated blood platelet count (count/volume) 202 10*3/uL 130-400 Automated blood platelet mean volume measurement 11.8 [foz_us] 7.4-10.4 PT panel in platelet poor plasma by coag ulation assay - 05/12/18 07:00 Prothrombin time (PT) in platelet poor plasma by coagu lation assay 13.4 s 12.2-14.7 INR in platelet poor plasma or blood by coagulation as say 1.0 0.8-1.4 Activated partial thromboplastin time (a PTT) in platelet poor plasma bycoagulation assay - 05/12/18 07:00 Activated partial thromboplastin time (a PTT) in platelet poor plasma bycoagulation assay 27 s 24-35 Comprehensive metabolic panel - 05/12/18 07:00 Serum or plasma sodium measurement (moles/volume) 141 mmol/L 135-145 Serum or plasma potassium measurement (moles/volume) 3.8 mmol/L 3.6-5.0 Serum or plasma chloride measurement (moles/volume) 103 mmol/L 98-107 Carbon dioxide 25 mmol/L 21-32 Serum or plasma anion gap determination (moles/volume) 13 mmol/L 5-14 Serum or plasma urea nitrogen measurement (mass/volume ) 14 mg/dL 7-18 Serum or plasma creatinine measurement (mass/volume) 0.84 mg/dL 0.60-1.30 Serum or plasma urea nitrogen/creatinine mass ratio 17 NRG Serum or plasma creatinine measurement w ith calculation of estimated glomerular filtration rate > NRG Serum or plasma glucose measurement (mass/volume) 121 mg/dL 70-105 Serum or plasma calcium measurement (mass/volume) 9.8 mg/dL 8.5-10.1 Serum or plasma total bilirubin measurement (mass/volu me) 0.6 mg/dL 0.1-1.0 Serum or plasma alkaline phosphatase nima surement (enzymatic activity/volume) 40 U/L 40-136 Serum or plasma aspartate aminotransfera se measurement (enzymatic activity/volume) 27 U/L 5-34 Serum or plasma alanine aminotransferase measurement (enzymatic activity/volume) 39 U/L 0-55 Serum or plasma protein measurement (mass/volume) 7.5 g/dL 6.4-8.2 Serum or plasma albumin measurement (mass/volume) 4.5 g/dL 3.2-4.5 CALCIUM CORRECTED 9.4 mg/dL 8.5-10.1 Methicillin resistant Staphylococcus aur eus (MRSA) screening culture - 05/12/18 07:00 Methicillin resistant Staphylococcus aureus (MRSA) scr eening culture NEG NRG Complete blood count (CBC) with automate d white blood cell (WBC) differential - 06/04/19 15:30 Blood leukocytes automated count (number/volume) 9.0 10*3/uL 4.3-11.0 Blood erythrocytes automated count (number/volume) 5.92 10*6/uL 4.35-5.85 Venous blood hemoglobin measurement (mass/volume) 16.6 g/dL 13.3-17.7 Blood hematocrit (volume fraction) 50 % 40-54 Automated erythrocyte mean corpuscular volume 84 [ foz_us] 80-99 Automated erythrocyte mean corpuscular h emoglobin (mass per erythrocyte) 28 pg 25-34 Automated erythrocyte mean corpuscular h emoglobin concentration measurement (mass/volume) 33 g/dL 32-36 Automated erythrocyte distribution width ratio 15. 5 % 10.0- 14.5 Automated blood platelet count (count/volume) 263 10*3/uL 130-400 Automated blood platelet mean volume measurement 11.3 [foz_us] 7.4-10.4 Automated blood neutrophils/100 leukocytes 67 % 42-75 Automated blood lymphocytes/100 leukocytes 18 % 12-44 Blood monocytes/100 leukocytes 10 % 0-12 Automated blood eosinophils/100 leukocytes 4 % 0-10 Automated blood basophils/100 leukocytes 1 % 0-10 Blood neutrophils automated count (number/volume) 6.0 10*3 1.8-7.8 Blood lymphocytes automated count (number/volume) 1.6 10*3 1.0-4.0 Blood monocytes automated count (number/volume) 0. 9 10*3 0.0-1.0 Automated eosinophil count 0.4 10*3/uL 0 .0-0.3 Automated blood basophil count (count/volume) 0.1 10*3/uL 0.0-0.1 Comprehensive metabolic panel - 06/04/19 15:30 Serum or plasma sodium measurement (moles/volume) 140 mmol/L 135-145 Serum or plasma potassium measurement (moles/volume) 3.8 mmol/L 3.6-5.0 Serum or plasma chloride measurement (moles/volume) 101 mmol/L 98-107 Carbon dioxide 27 mmol/L 21-32 Serum or plasma anion gap determination (moles/volume) 12 mmol/L 5-14 Serum or plasma urea nitrogen measurement (mass/volume ) 10 mg/dL 7-18 Serum or plasma creatinine measurement (mass/volume) 1.04 mg/dL 0.60-1.30 Serum or plasma urea nitrogen/creatinine mass ratio 10 NRG Serum or plasma creatinine measurement w ith calculation of estimated glomerular filtration rate > NRG Serum or plasma glucose measurement (mass/volume) 121 mg/dL 70-105 Serum or plasma calcium measurement (mass/volume) 9.6 mg/dL 8.5-10.1 Serum or plasma total bilirubin measurement (mass/volu me) 1.5 mg/dL 0.1-1.0 Serum or plasma alkaline phosphatase nima surement (enzymatic activity/volume) 49 U/L 40-136 Serum or plasma aspartate aminotransfera se measurement (enzymatic activity/volume) 30 U/L 5-34 Serum or plasma alanine aminotransferase measurement (enzymatic activity/volume) 31 U/L 0-55 Serum or plasma protein measurement (mass/volume) 8.2 g/dL 6.4-8.2 Serum or plasma albumin measurement (mass/volume) 4.5 g/dL 3.2-4.5 CALCIUM CORRECTED 9.2 mg/dL 8.5-10.1 Magnesium - 06/04/19 15:30 Magnesium 2.0 mg/dL 1.6-2.4 Myoglobin, serum - 06/04/19 15:30 Myoglobin, serum 45.6 ng/mL 10.0-92.0 Serum or plasma amylase measurement (enz ymatic activity/volume) - 06/04/19 15:30 Serum or plasma amylase measurement (enzymatic activit y/volume) 64 U/L 25-125 PT panel in platelet poor plasma by coag ulation assay - 06/04/19 15:30 Prothrombin time (PT) in platelet poor plasma by coagu lation assay 14.5 s 12.2-14.7 INR in platelet poor plasma or blood by coagulation as say 1.1 0.8-1.4 Activated partial thromboplastin time (a PTT) in platelet poor plasma bycoagulation assay - 06/04/19 15:30 Activated partial thromboplastin time (a PTT) in platelet poor plasma bycoagulation assay 28 s 24-35 Serum or plasma lithium measurement (mol es/volume) - 06/04/19 15:30 BNP PT 180.5 pg/mL <100.0 Lipase - 06/04/19 15:30 Lipase 36 U/L 8-78 Serum or plasma troponin i.cardiac measu rement (mass/volume) - 06/04/19 15:30 Serum or plasma troponin i.cardiac measurement (mass/v olume) < ng/mL <0.028 Serum or plasma C reactive protein measu rement (mass/volume) - 06/04/19 15:30 Serum or plasma C reactive protein measurement (mass/v olume) 0.88 mg/dL 0.00-0.50 Fibrin D-dimer FEU measurement in platel et poor plasma (mass/volume) - 06/04/19 15:30 Fibrin D-dimer FEU measurement in platelet poor plasma (mass/volume) 0.52 ug/mL 0.00-0.49 Serum ragweed IgE antibody assay - 06/03 15:30 Serum ragweed IgE antibody assay 267 U/L 125-220 PROCALCITONIN (PCT) - 06/04/19 15:30 PROCALCITONIN (PCT) 0.02 ng/mL <0.10 Influenza virus A and B antigen detectio n - 06/04/19 17:23 FLU RESULT NEGATIVE FOR INFLUENZA A AND B ANTIGENS BY IA NR 2019 Coronavirus SARS-CoV-2 SO - 0 17:23 Coronavirus Ab [Units/volume] in Serum Negative Negative Complete blood count (CBC) with automate d white blood cell (WBC) differential - 06/05/19 04:10 Blood leukocytes automated count (number/volume) 9.3 10*3/uL 4.3-11.0 Blood erythrocytes automated count (number/volume) 5.32 10*6/uL 4.35-5.85 Venous blood hemoglobin measurement (mass/volume) 14.8 g/dL 13.3-17.7 Blood hematocrit (volume fraction) 45 % 40-54 Automated erythrocyte mean corpuscular volume 84 [ foz_us] 80-99 Automated erythrocyte mean corpuscular h emoglobin (mass per erythrocyte) 28 pg 25-34 Automated erythrocyte mean corpuscular h emoglobin concentration measurement (mass/volume) 33 g/dL 32-36 Automated erythrocyte distribution width ratio 15. 2 % 10.0- 14.5 Automated blood platelet count (count/volume) 198 10*3/uL 130-400 Automated blood platelet mean volume measurement 11.1 [foz_us] 7.4-10.4 Automated blood neutrophils/100 leukocytes 69 % 42-75 Automated blood lymphocytes/100 leukocytes 15 % 12-44 Blood monocytes/100 leukocytes 12 % 0-12 Automated blood eosinophils/100 leukocytes 3 % 0-10 Automated blood basophils/100 leukocytes 1 % 0-10 Blood neutrophils automated count (number/volume) 6.4 10*3 1.8-7.8 Blood lymphocytes automated count (number/volume) 1.4 10*3 1.0-4.0 Blood monocytes automated count (number/volume) 1. 1 10*3 0.0-1.0 Automated eosinophil count 0.3 10*3/uL 0 .0-0.3 Automated blood basophil count (count/volume) 0.1 10*3/uL 0.0-0.1 Comprehensive metabolic panel - 06/05/19 04:10 Serum or plasma sodium measurement (moles/volume) 141 mmol/L 135-145 Serum or plasma potassium measurement (moles/volume) 3.3 mmol/L 3.6-5.0 Serum or plasma chloride measurement (moles/volume) 103 mmol/L 98-107 Carbon dioxide 25 mmol/L 21-32 Serum or plasma anion gap determination (moles/volume) 13 mmol/L 5-14 Serum or plasma urea nitrogen measurement (mass/volume ) 10 mg/dL 7-18 Serum or plasma creatinine measurement (mass/volume) 0.78 mg/dL 0.60-1.30 Serum or plasma urea nitrogen/creatinine mass ratio 13 NRG Serum or plasma creatinine measurement w ith calculation of estimated glomerular filtration rate > NRG Serum or plasma glucose measurement (mass/volume) 105 mg/dL 70-105 Serum or plasma calcium measurement (mass/volume) 8.1 mg/dL 8.5-10.1 Serum or plasma total bilirubin measurement (mass/volu me) 1.5 mg/dL 0.1-1.0 Serum or plasma alkaline phosphatase nima surement (enzymatic activity/volume) 36 U/L 40-136 Serum or plasma aspartate aminotransfera se measurement (enzymatic activity/volume) 21 U/L 5-34 Serum or plasma alanine aminotransferase measurement (enzymatic activity/volume) 22 U/L 0-55 Serum or plasma protein measurement (mass/volume) 6.3 g/dL 6.4-8.2 Serum or plasma albumin measurement (mass/volume) 3.6 g/dL 3.2-4.5 CALCIUM CORRECTED 8.4 mg/dL 8.5-10.1 Serum or plasma troponin i.cardiac measu rement (mass/volume) - 06/06/19 13:50 Serum or plasma troponin i.cardiac measurement (mass/v olume) < ng/mL <0.028 Encounters ACCT No. Visit Date/Time Discharge Status Pt. Type Provider Facility Loc./Unit Complaint [id number] 04/19/2019 11:29:13 04/19/2019 23:59: 59 CLS Outpatient Natali Workman [id number] 10/04/2016 10:02:09 10/04/2016 23:59: 59 CLS Outpatient LUCIA PICKARD [id number] 06/08/2016 11:55:36 06/08/2016 23:59: 59 CLS Outpatient Neema Yates [id number] 04/03/2015 09:11:24 04/03/2015 23:59: 59 CLS Outpatient NEERAJ LUCIA Avendaño [id number] 09/26/2014 09:00:03 09/26/2014 23:59: 59 CLS Outpatient NEERAJLUCIA [id number] 03/26/2014 09:07:57 03/26/2014 23:59: 59 CLS Outpatient NEERAJLUCIA [id number] 02/13/2014 09:22:23 02/13/2014 23:59: 59 CLS Outpatient PICKARDLUCIA [id number] 08/27/2019 09:02:57 ACT Outpatient Natali Workman [id number] 08/22/2019 07:52:00 23:59:59 CLS Outpatient DEREK ANDERSON MD [facility] CARD CAD,CBA,HYPERTENSION [id number] 06/04/2019 17:15:00 14:38:00 DIS Outpatient JOSE VALENTINE MD [facility] 4TH SOB [id number] 05/12/2018 06:39:00 12:35:00 DIS Outpatient DEREK ANDERSON MD [facility] CATH ABN STRESS TEST [id number] 05/08/2018 07:05:00 23:59:59 CLS Outpatient MATT ONEAL [facility] CARD CAD, CAROTI D ARTERY STENOSIS [id number] 04/06/2018 16:11:00 23:59:59 CLS Preadmit TOM ONEAL [facility] CARD CAD, CAROTID A RTERY STENOSIS [id number] 01/21/2016 06:40:00 12:50:00 DIS Outpatient DEREK ANDERSON MD [facility] CATH ABNORMAL STRESS TEST,CA D,HTN,HLP [id number] 01/14/2016 07:24:00 23:59:59 CLS Outpatient MATT ONAEL [facility] CARD CAD,HTN,HLP [id number] 12/31/2015 08:47:00 016 23:59:59 CLS Outpatient MATT ONEAL [facility] CARD CAD,HTN,HLP [id number] 09/21/2013 09:45:00 014 23:59:59 CLS Outpatient MATT ONEAL [facility] CARD CAD,SAM,HTN ,HLP [id number] 09/21/2013 07:54:00 014 23:59:59 CLS Outpatient MATT ONEAL [facility] LAB CAD,HTN,HYP ERLIPIDEMIA [id number] 08/29/2019 09:01:[address] Outpatient JUSTIN NEVAREZ, DEREK Hernández [facility] CATH AFIB,CAD,HTN,HLP,HX CVA [id number] 05/17/2012 06:55:00 Document Registration [id number] 04/17/2012 07:30:00 Document Registration [id number] 08/26/2011 08:03:00 Document Registration [id number] 04/23/2011 11:13:00 Document Registration
[2019-08-29] MEDS ORDERED: NS IV 1000 ML 1,000 ML IV SCH ×2 (09:28→11:52)
[2019-08-29] MEDS ORDERED: LIDOCAINE 2% VISCOUS 15 ML UDC PO ONE (09:30)
[2019-08-29] MEDS ORDERED: LIDOCAINE 2% VISCOUS 15 ML UDC ONE (09:43)
[2019-08-29] MEDS ORDERED: HEParin (CATH LAB) 2,000 ML IV ONE (09:43)
[2019-08-29] MEDS ORDERED: LIDOCAINE 1% INJ 20 ML 20 ML VIAL ONE ×2 (09:43→11:41)
[2019-08-29] MEDS ORDERED: NS IV 1000 ML 1,000 ML ONE ×2 (09:44→11:47)
[2019-08-29 10:08] LABS: HEMOGLOBIN 15.6 G/DL (13.3-17.7); MEAN PLATELET VOLUME 11.3 FL (7.4-10.4); RED CELL DISTRIBUTION WIDTH 15.8 % (10.0-14.5); WHITE BLOOD COUNT 8.8 10^3/uL (4.3-11.0)
--- NOTE | 2019-08-29 10:09 | Diagnostic Imaging Report ---
INDICATION: Preop for heart catheterization. Patient has atrial fibrillation. TIME OF EXAM: 9:51 AM Correlation is made with prior chest from 06/04/2019. The heart is enlarged but stable. There are changes of median sternotomy and CABG. No infiltrates are seen. There is no effusion or pneumothorax. IMPRESSION: No acute cardiopulmonary process is detected. Dictated by: Dictated on workstation # [id number]
[2019-08-29 10:20] LABS: INR 1.2 (0.8-1.4); PROTHROMBIN TIME PATIENT 15.2 SEC (12.2-14.7)
[2019-08-29] MEDS ORDERED: MIDAZOLAM 2 MG/2 ML (VERSED) VIAL ONE (10:24)
[2019-08-29] MEDS ORDERED: proPOfol 200 MG/20 ML (DIPRIVAN) VIAL IV ONE (10:24)
[2019-08-29 10:31] LABS: ALANINE AMINOTRANSFERASE 30 U/L (0-55); ALBUMIN 4.3 GM/DL (3.2-4.5); ALKALINE PHOSPHATASE 45 U/L (40-136); BILIRUBIN,TOTAL 0.9 MG/DL (0.1-1.0); BUN/CREATININE RATIO 11; CALCIUM 9.4 MG/DL (8.5-10.1); CARBON DIOXIDE 27 MMOL/L (21-32); CHLORIDE 103 MMOL/L (98-107); CHOLESTEROL 110 MG/DL (< 200); CREATININE SERUM 0.82 MG/DL (0.60-1.30); GFR ESTIMATED > 60; GLUCOSE 128 MG/DL (70-105); HDL CHOLESTEROL 37 MG/DL (40-60); POTASSIUM 3.8 MMOL/L (3.6-5.0); SODIUM 143 MMOL/L (135-145); TOTAL PROTEIN 7.2 GM/DL (6.4-8.2); TRIGLYCERIDES 65 MG/DL (<150); VLDL CHOLESTEROL 13 MG/DL (5-40)
[2019-08-29] MEDS ORDERED: APIX5TAB PO (10:35)
--- NOTE | 2019-08-29 10:53 | NUR ---
SPOKE WITH PT AND HIS (HE BROUGHT HIS MED BOTTLES) TO COMPLETE THE MED REC THE FOLLOWING ARE FILL DATES: 06-18-2019 AMLODIPINE 10MG #90/90DS 06-27-2019 CARVEDILOL 12.5MG #180/90DS 06-28-2019 LISINOPRIL 40MG #90/90DS 06-28-2019 HCTZ 25MG #90/90DS 08-07-2019 ATORVASTATIN 20MG #90/90DS 08-10-2019 ELIQUIS 5MG #60/30DS OTC MEDS: FISH OIL CO Q 10 MTV ASPIRIN 81MG NIACIN IBUPROFEN PRN
[2019-08-29] MEDS ORDERED: AMIODARONE (OMNICELL DRIP KIT) 150 MG/3 ML IV ONE (11:25)
--- NOTE | 2019-08-29 11:26 | Cardiac Procedure Note-CS/ASA ---
Pre-Procedure Note Pre-Op Procedure Note H&P Reviewed The H&P was reviewed, patient examined and no changes noted. Date H&P Reviewed: Aug 29, 2019 Time H&P Reviewed: 11:26 Conscious Sedation Pre-Proced Time 11:26 ASA Score 3 For ASA 3 and 4: Consider anesthesia and medical clearance. Also, for patients with a history of failed moderate sedation consider anesthesia. Airway Lungs Heart ASA score ASA 1: a normal healthy patient ASA 2: a patient with a mild systemic disease (mid diabetes, controlled hypertension, obesity x ASA 3: a patient with a severe systemic disease that limits activity (angina, COPD, prior Myocardial infarction) ASA 4: a patient with an incapacitating disease that is a constant threat to life (CHF, renal failure) ASA 5: a moribund patient not expected to survive 24 hrs. (ruptured aneurysm) ASA 6: a declared brain- patient whose organs are being harvested. For emergent operations, add the letter E after the classification Mallampati Classification Grade 3 Sedation Plan Analgesia, Amnesia, Plan communicated to team members, Discussed options with patient/fam, Discussed risks with patient/fam The patient is an appropriate candidate to undergo the planned procedure, sedation, and anesthesia. The patient immediately re-assessed prior to indication. DEREK ANDERSON MD Aug 29, 2019 11:26
[2019-08-29] MEDS ORDERED: HEParin 1000 UNIT/ML (10ML VIAL) FOR BOLUS ONE (11:28)
[2019-08-29] MEDS ORDERED: fentaNYL INJECTION 100 MCG/2 ML AMP ONE (11:28)
[2019-08-29] MEDS ORDERED: MIDAZOLAM 5 MG/5 ML (VERSED) VIAL ONE (11:28)
--- NOTE | 2019-08-29 11:28 | Cardioversion ---
Cardioversion PROCEDURE PHYSICIAN: Derek Cooper DATE OF PROCEDURE: 08/29/19 DIRECT EXTERNAL ELECTRICAL CARDIOVERSION: Indications: Atrial Fibrillation with rapid ventricular rate Preoperative diagnoses: Atrial Fibrillation with rapid ventricular rate Postoperative diagnosis: Sinus rhythm, Successful Electrical Cardioversion History: Anesthesia: By Anesthesia services Complications: None Specimen: None Contrast: 0 Flouroscopy: none Procedure Details: The patient was brought the orthodontic laboratory technician after informed consent was taken, all the risks and complications were explained including the risk of stroke. Electrical cardioversion was carried out with anesthesia support with propofol. 200 joules of synchronized shock was delivered through external patches which promptly restored sinus rhythm. The patient tolerated the procedure well. Conclusions: Successful electrical cardioversion with no complication Final Diagnosis: Paroxysmal atrial fibrillation Hypertension Hyperlipidemia Coronary artery disease DEREK COOPER MD Aug 29, 2019 11:28
--- NOTE | 2019-08-29 11:40 | NUR ---
100MG PROPOFOL IV GIVEN PER ANESTHESIA, SEE RECORD.
[2019-08-29] MEDS ORDERED: MIDAZOLAM 2 MG/2 ML (VERSED) VIAL IM ONE (11:45)
[2019-08-29] MEDS ORDERED: AMIODARONE INJECTION 150 MG in D5W 100 ML IVPB 100 ML IV ONE (11:45)
[2019-08-29] MEDS ORDERED: AMIO200T4 PO (11:56)
[2019-08-29] MEDS ORDERED: PANT40SU PO (11:56)
--- NOTE | 2019-08-29 11:57 | Discharge Inst-Post CATH ---
Discharge Inst-CATH/EP Problems Reviewed?: Yes Post Cardiac Cath/EP D/C Inst Follow Up/Plan Appointment with Dr. Cooper's office in 4 weeks <b>CARDIAC CATH/EP PROCEDURE DISCHARGE INSTRUCTIONS</b> ACTIVITY * Go Home directly and rest. * Limit activity of the leg (or wrist if it was used) for 7 days including aerobics, swimming, jogging, bicycling, etc. * Restrict stair-climbing for 7 days if possible, if not, climb up with your non-cath leg, then bring together on the same step. * Avoid lifting, pushing, pulling or excessive movement of the affected extremity for 7 days. * Customary sexual activity may be resumed after 2 days-use caution not to use a position that strains or causes pain to the affected extremity. * No driving for 24 hours. * NO SMOKING. * Avoid straining for bowel movements for 7 days. * Gentle walking on level ground is allowed. * Returning to work will depend on the type of procedure and the results. Your doctor will discuss this with you. CALL YOUR DOCTOR FOR ANY OF THE FOLLOWING: *If bleeding from the puncture site occurs- Apply gentle pressure to site with clean cloth and call your doctor or EMS. * If a knot or lump forms under the skin, increases in size, or causes pain. * If bruising appears to be worsening or moving further down your leg instead of disappearing. * Temperature above 101 F. CARE OF YOUR GROIN INCISION; * Bruising or purple discoloration of the skin near the puncture site is common. * You may shower only, no bathtub bathing for 5 days. Be careful to avoid slipping as your leg may feel stiff. * If a closure device was used on your femoral artery, please see the attached guide regarding care of the device and your leg. * Leave dressing on FOR 24 hours. CARE OF YOUR WRIST INCISION; * Bruising or purple discoloration of the skin near the puncture site is common. * You may shower. * DO NOT submerge wrist. * Leave dressing on FOR 24 hours. DEREK COOPER MD Aug 29, 2019 11:57
[2019-08-29] MEDS ORDERED: AMIODARONE 200 MG (CORDARONE) TAB PO SCH (12:00)
[2019-08-29] MEDS ORDERED: MIDAZOLAM 2 MG/2 ML (VERSED) VIAL IVP ONE (12:00)
[2019-08-29] MEDS ORDERED: PATIENT MAY USE OWN MEDS, ALL PO SCH (12:00)
--- NOTE | 2019-08-29 12:06 | Cardiac Cath Report ---
Cardiac Cath Report Physician (s)/[employer] Sawyer (s) Physician DEREK ANDERSON MD Pre-Procedure Diagnosis Pre-Procedure Diagnosis: coronary artery disease Post-Procedure Note Procedure Start Date: Aug 29, 2019 Name of Procedure: Left heart catheterization Vein graft angiogram FUCHS angiogram Findings/Procedure Note PROCEDURE NOTE: 74 years old gentleman with history of coronary artery disease, CABG, paroxysmal atrial fibrillation, underwent RUTHIE and electrical cardioversion today. Had an abnormal stress test and scheduled for cardiac catheterization. After explaining the procedure to the patient, all pros and cons were explained, all questions were answered. The patient signed the consent and then he was p laced on the cardiac catheterization laboratory. Groin was prepped SL fashion local anesthesia was used. Sheath placed in the right femoral artery. Blane right and left catheter were used to access the coronary system.Vein Graft evaluated. FUCHS evaluated. Pigtail was used to access the left ventricular cavity. Left ventriculogram was not done, pressure was measured At the end of the procedure the sheath was removed. Closure device was deployed FINDINGS: Hemodynamics LV 94/11, end-diastolic pressure from 11 Aorta 96/50 mean of 68 ANATOMY: Left Main has eooz-wz-hmqbdmdo disease Left Anterior Descending has moderate disease proximally, smaller artery distally, competitive flow through the atretic FUCHS Left Circumflex smaller artery with hhob-fe-ognhacre disease Right Coronory Artery is occluded proximally, the vein graft to the right coronary artery is patent FUCHS to LAD is small and atretic due to the significant competitive flow through the crow LAD Vein Graft evaluation showed 2 vein graft Vein graft to the obtuse marginal branch is known to be occluded Vein graft to the right coronary artery is patent with good flow distally LV Gram was not done, pressure was measured CONCLUSION: 1. Atretic UFCHS due to to good flow through the crow LAD, there is mild to moderate proximal LAD and moderate distal LAD disease, the artery is smaller artery distally. 2. Patent vein graft to the right coronary artery with slow flow due to small vessel disease distally 3. Known occluded vein graft to the circumflex artery, mild to moderate disease in the crow circumflex artery 4. Normal left ventricular end-diastolic pressure DISCUSSION AND RECOMMENDATION: Patient underwent electrical cardioversion started on amiodarone drip, restarted oral anticoagulation, continue to monitor and follow up as an outpatient Anesthesia Type: Conscious Sedation Estimated blood loss (mL): 25 ml Contrast Amount: 34 ml Total Radiation Dose: 448 mGy Post-Procedure Diagnosis Post-operative diagnosis: Coronary artery disease Paroxysmal atrial fibrillation Hypertension Hyperlipidemia DEREK ANDERSON MD Aug 29, 2019 12:06
--- NOTE | 2019-08-29 13:07 | Anesthesia-General Post-Op ---
MAC Patient Condition Mental Status/LOC: Same as Preop Cardiovascular: Satisfactory Nausea/Vomiting: Absent Respiratory: Satisfactory Pain: Controlled Complications: Absent Post Op Complications Complications None Follow Up Care/Instructions Patient Instructions None needed. Anesthesiology Discharge Order Discharge Order Patient is doing well, no complaints, stable vital signs, no apparent adverse anesthesia problems. No complications reported per nursing. JESIKA HENDRIX CRNA Aug 29, 2019 13:07
[2019-08-29] MEDS ORDERED: lisINopril 40 MG (PRINIVIL) TABLET PO SCH (21:00)
[2019-08-29] MEDS ORDERED: CARVEDILOL 12.5 MG (COREG) TABLET PO SCH (21:00)
[2019-08-29] MEDS ORDERED: APIXABAN 5 MG (ELIQUIS) TABLET PO SCH (21:00)
[2019-08-30] MEDS ORDERED: HYDROCHLOROTHIAZIDE 25 MG (HCTZ) TAB PO SCH (09:00)
[2019-08-30] MEDS ORDERED: ASPIRIN E.C. 81 MG (ECOTRIN) TAB PO SCH (09:00)
[2019-08-30] MEDS ORDERED: amLODIPine 10 MG (NORVASC) TAB PO SCH (09:00)
== END 2019-08-29 17:30 | disposition home or self-care (01) ==
LOC: CATH 09:01 → CSD 11:55 → CATH 17:30
PROVIDERS: ATTEND Internal Medicine Cardiovascular Disease
DX: I25.10 Atherosclerotic heart disease of native coronary artery without angina pectoris (principal); I48.0 Paroxysmal atrial fibrillation; I10 Essential (primary) hypertension; E78.5 Hyperlipidemia, unspecified; G47.30 Sleep apnea, unspecified; N52.9 Male erectile dysfunction, unspecified; I65.23 Occlusion and stenosis of bilateral carotid arteries; E66.9 Obesity, unspecified; Z68.32 Body mass index [BMI] 32.0-32.9, adult; Z79.01 Long term (current) use of anticoagulants; Z79.82 Long term (current) use of aspirin; Z79.899 Other long term (current) drug therapy; Z87.891 Personal history of nicotine dependence; Z86.73 Personal history of transient ischemic attack (TIA), and cerebral infarction without residual deficits; Z80.0 Family history of malignant neoplasm of digestive organs; Z82.3 Family history of stroke
CPT/HCPCS: 71045; 80053; 80061; 85027; 85610; 85730; 87081; 92960; 93005; 93312; 93320; 93325; 93459; C1760; C1894; 36415

== ENCOUNTER → 2019-09-19 | Outpatient (CLI) | payer MEDICARE ==
[2019-09-19] VITALS (7 sets, daily range): BP systolic 103–162; BP diastolic 55–89
[~2019-09-19] VITALS: Ht 183 cm; Wt 105.0 kg
[~2019-09-19] MED LIST changes: +AMIO200T4 PO; +APIX5TAB PO; +CBD OIL SL; +LIDOCAINE 1% INJ 20 ML 20 ML VIAL INJ ONE; +LIDOCAINE 1% INJ 20 ML 20 ML VIAL ONE; +MIDAZOLAM 2 MG/2 ML (VERSED) VIAL ONE; +NS IV 1000 ML 1,000 ML IV SCH; +NS IV 1000 ML 1,000 ML ONE; +PANT40SU PO; +RT-ALBUINH IH; +UMEC1BLS IH; +proPOfol 200 MG/20 ML (DIPRIVAN) VIAL IV ONE
--- NOTE | 2019-09-19 12:27 | Anesthesia-General Post-Op ---
MAC Patient Condition Mental Status/LOC: Same as Preop Cardiovascular: Satisfactory Nausea/Vomiting: Absent Respiratory: Satisfactory Pain: Controlled Complications: Absent Post Op Complications Complications None Follow Up Care/Instructions Patient Instructions None needed. Anesthesiology Discharge Order Discharge Order Patient is doing well, no complaints, stable vital signs, no apparent adverse anesthesia problems. EZEQUIEL ORTEGA DO Sep 19, 2019 12:27
--- NOTE | 2019-09-19 12:38 | Cardiac Procedure Note-CS/ASA ---
Pre-Procedure Note Pre-Op Procedure Note H&P Reviewed The H&P was reviewed, patient examined and no changes noted. Date H&P Reviewed: Sep 19, 2019 Time H&P Reviewed: 12:38 Conscious Sedation Pre-Proced Time 12:38 ASA Score 3 For ASA 3 and 4: Consider anesthesia and medical clearance. Also, for patients with a history of failed moderate sedation consider anesthesia. Airway Lungs Heart ASA score ASA 1: a normal healthy patient ASA 2: a patient with a mild systemic disease (mid diabetes, controlled hypertension, obesity x ASA 3: a patient with a severe systemic disease that limits activity (angina, COPD, prior Myocardial infarction) ASA 4: a patient with an incapacitating disease that is a constant threat to life (CHF, renal failure) ASA 5: a moribund patient not expected to survive 24 hrs. (ruptured aneurysm) ASA 6: a declared brain- patient whose organs are being harvested. For emergent operations, add the letter E after the classification Mallampati Classification Grade 3 Sedation Plan Analgesia, Amnesia, Plan communicated to team members, Discussed options with patient/fam, Discussed risks with patient/fam The patient is an appropriate candidate to undergo the planned procedure, sedation, and anesthesia. The patient immediately re-assessed prior to indication. DEREK ANDERSON MD Sep 19, 2019 12:38
--- NOTE | 2019-09-19 12:40 | Cardioversion ---
Cardioversion PROCEDURE PHYSICIAN: Derek Cooper DATE OF PROCEDURE: 09/19/19 DIRECT EXTERNAL ELECTRICAL CARDIOVERSION: Indications: Atrial Fibrillation Preoperative diagnoses: Atrial Fibrillation Postoperative diagnosis: Sinus rhythm, Successful Electrical Cardioversion History: 74-year-old gentleman with paroxysmal atrial fibrillation and had RUTHIE with electrical cardioversion 2 weeks ago, return to the office and noted to be in atrial fibrillation. Scheduled for electrical cardioversion did not skip any of his oral anticoagulation medication. I'll proceed with cardioversion then proceed with loop recorder implantation for closer monitoring and management of his atrial fibrillation Anesthesia: By Anesthesia services Complications: None Specimen: None Contrast: 0 Flouroscopy: none Procedure Details: The patient was brought the stores laborer after informed consent was taken, all the risks and complications were explained including the risk of stroke. Electrical cardioversion was carried out with anesthesia support with propofol. 120 joules of synchronized shock was delivered through external patches which promptly restored sinus rhythm. The patient tolerated the procedure well. Conclusions: successful electrical cardioversion Final Diagnosis: Paroxysmal atrial fibrillation Hypertension Hyperlipidemia Coronary artery disease DEREK COOPER MD Sep 19, 2019 12:40
--- NOTE | 2019-09-19 12:43 | Implantation of Loop Monitor ---
Implant of Loop Monitior IMPLANTATION OF LOOP MONITOR REPORT DATE OF PROCEDURE: 09/19/19 PREOP DIAGNOSIS: Paroxysmal atrial fibrillation POSTOP DIAGNOSIS: Paroxysmal atrial fibrillation PROCEDURE DETAILS: The patient is a 74 male with history of paroxysmal atrial fibrillation requiring long-term surveillance. Therefore implantable loop recorder was discussed and agreed with the patient. Informed consent was taken. All risks and complications were discussed at length. The patient was draped and prepped in the usual sterile fashion. Local anesthesia was lidocaine, which was given in the substernal area close to the 4th intercostal space. Loop monitor [employer]tr[employer] with serial number [id number] was implanted according to the protocol. Steri- Strips were placed at the end of the procedure. There were no complications and the patient tolerated the procedure well. The device was interrogated with good sensing and capture ANESTHESIA: Local anesthesia with lidocaine. COMPLICATIONS: None CONTRAST/FLUOROSCOPY: None CONCLUSION: Successful implantation of loop recorder with no complication FINAL DIAGNOSIS: Paroxysmal atrial fibrillation Coronary artery disease Hypertension Hyperlipidemia DEREK ANDERSON MD Sep 19, 2019 12:43
--- NOTE | 2019-09-19 13:15 | NUR ---
iv dc'd remained, in sb, dc instruction reviewed with spouse at bedside. dc'd via wc
== END ==
LOC: CATH 10:41
PROVIDERS: ATTEND Internal Medicine Cardiovascular Disease
DX: I48.0 Paroxysmal atrial fibrillation (principal); I10 Essential (primary) hypertension; E78.5 Hyperlipidemia, unspecified; I25.810 Atherosclerosis of coronary artery bypass graft(s) without angina pectoris; G47.30 Sleep apnea, unspecified; N52.9 Male erectile dysfunction, unspecified; I65.23 Occlusion and stenosis of bilateral carotid arteries; Z95.1 Presence of aortocoronary bypass graft; Z86.73 Personal history of transient ischemic attack (TIA), and cerebral infarction without residual deficits
CPT/HCPCS: 33285; 92960; C1764; 93005

== ENCOUNTER → 2020-09-25 | Outpatient (CLI) | payer MEDICARE ==
[~2020-09-25] MED LIST changes: -AMIO200T4 PO; +AMIO200T6 PO; +AMLO-251 PO; -AMLO10TA7 PO; +AZIT250T12 PO; +CEFD300C3 PO; -LIDOCAINE 1% INJ 20 ML 20 ML VIAL INJ ONE; -LIDOCAINE 1% INJ 20 ML 20 ML VIAL ONE; +LISI40TA9 PO; -MIDAZOLAM 2 MG/2 ML (VERSED) VIAL ONE; -NS IV 1000 ML 1,000 ML IV SCH; -NS IV 1000 ML 1,000 ML ONE; -proPOfol 200 MG/20 ML (DIPRIVAN) VIAL IV ONE
== END ==
LOC: CARD 11:14
PROVIDERS: ATTEND Internal Medicine Cardiovascular Disease
DX: I11.9 Hypertensive heart disease without heart failure (principal); I08.3 Combined rheumatic disorders of mitral, aortic and tricuspid valves; I49.9 Cardiac arrhythmia, unspecified
CPT/HCPCS: 93306

== ENCOUNTER 2020-11-05 13:00 | Day surgery (SDC) | payer MEDICARE ==
[2020-11-05] VITALS (8 sets, daily range): BP systolic 147–184; BP diastolic 70–95
[~2020-11-05] VITALS: Ht 182 cm; Wt 101.0 kg
--- NOTE | 2020-11-05 11:37 | Diagnostic Imaging Report ---
INDICATION: Shortness of breath Portable chest 11:26 AM There is cardiomegaly with pulmonary vascular congestion and some interstitial edema. There are postoperative changes from median sternotomy. IMPRESSION: Congestive heart failure. Dictated by: Dictated on workstation # [id number]
[2020-11-05 11:38] LABS: HEMATOCRIT 44 % (40-54); HEMOGLOBIN 12.1 g/dL (13.3-17.7); MEAN CORPUSCULAR HEMOGLOBIN 19 pg (25-34); MEAN CORPUSCULAR HGB CONC 28 g/dL (32-36); MEAN CORPUSCULAR VOLUME 68 fL (80-99); PLATELET COUNT 437 10^3/uL (130-400); WHITE BLOOD COUNT 14.2 10^3/uL (4.3-11.0)
[2020-11-05 11:47] LABS: INR 1.3 (0.8-1.4); PROTHROMBIN TIME PATIENT 16.6 SEC (12.2-14.7)
[2020-11-05 11:55] LABS: ALBUMIN 4.2 GM/DL (3.2-4.5); BILIRUBIN,TOTAL 2.3 MG/DL (0.1-1.0); CALCIUM 9.5 MG/DL (8.5-10.1); CREATININE SERUM 0.77 MG/DL (0.60-1.30); POTASSIUM 3.5 MMOL/L (3.6-5.0); TOTAL PROTEIN 7.3 GM/DL (6.4-8.2)
--- NOTE | 2020-11-05 12:58 | Conscious Sedation/ASA ---
Conscious Sedation Pre-Proced Time 12:58 ASA Score 3 For ASA 3 and 4: Consider anesthesia and medical clearance. Also, for patients with a history of failed moderate sedation consider anesthesia. Airway Lungs Heart ASA score ASA 1: a normal healthy patient ASA 2: a patient with a mild systemic disease (mid diabetes, controlled hypertension, obesity x ASA 3: a patient with a severe systemic disease that limits activity (angina, COPD, prior Myocardial infarction) ASA 4: a patient with an incapacitating disease that is a constant threat to life (CHF, renal failure) ASA 5: a moribund patient not expected to survive 24 hrs. (ruptured aneurysm) ASA 6: a declared brain- patient whose organs are being harvested. For emergent operations, add the letter E after the classification Mallampati Classification Grade 3 Sedation Plan Analgesia, Amnesia, Plan communicated to team members, Discussed options with patient/fam, Discussed risks with patient/fam The patient is an appropriate candidate to undergo the planned procedure, sedation, and anesthesia. The patient immediately re-assessed prior to indication. DEREK ANDERSON MD Nov 05, 2020 12:58
[~2020-11-05 13:00] MED LIST changes: +ASPI-999 PO; +CANN100S PO; +DILT-27 PO; +FURO40TA4 PO; +HEParin (CATH LAB) 2,000 ML IV ONE; +LIDOCAINE 1% INJ 20 ML 20 ML VIAL ONE; +MYCO500T3 PO; +NS IV 1000 ML 1,000 ML IV SCH; +NS IV 1000 ML 1,000 ML ONE; +POTA-51 PO; +SOTA120T PO
[2020-11-05] MEDS ORDERED: fentaNYL INJ 100 MCG/2 ML AMP ONE (13:42)
[2020-11-05] MEDS ORDERED: NS IV 1000 ML 1,000 ML IV SCH (13:45)
[2020-11-05] MEDS ORDERED: PATIENT MAY USE OWN MEDS, ALL PO SCH (13:45)
--- NOTE | 2020-11-05 13:45 | Discharge Inst-Post CATH ---
Discharge Inst-CATH/EP Problems Reviewed?: Yes Post Cardiac Cath/EP D/C Inst Follow Up/Plan Appointment with Dr. José Luis Brasher for next week Appointment with Dr. Cooper in 2 to 4 weeks <b>CARDIAC CATH/EP PROCEDURE DISCHARGE INSTRUCTIONS</b> ACTIVITY * Go Home directly and rest. * Limit activity of the leg (or wrist if it was used) for 7 days including aerobics, swimming, jogging, bicycling, etc. * Restrict stair-climbing for 7 days if possible, if not, climb up with your non-cath leg, then bring together on the same step. * Avoid lifting, pushing, pulling or excessive movement of the affected extremity for 7 days. * Customary sexual activity may be resumed after 2 days-use caution not to use a position that strains or causes pain to the affected extremity. * No driving for 24 hours. * NO SMOKING. * Avoid straining for bowel movements for 7 days. * Gentle walking on level ground is allowed. * Returning to work will depend on the type of procedure and the results. Your doctor will discuss this with you. CALL YOUR DOCTOR FOR ANY OF THE FOLLOWING: *If bleeding from the puncture site occurs- Apply gentle pressure to site with clean cloth and call your doctor or EMS. * If a knot or lump forms under the skin, increases in size, or causes pain. * If bruising appears to be worsening or moving further down your leg instead of disappearing. * Temperature above 101 F. CARE OF YOUR GROIN INCISION; * Bruising or purple discoloration of the skin near the puncture site is common. * You may shower only, no bathtub bathing for 5 days. Be careful to avoid slipping as your leg may feel stiff. * If a closure device was used on your femoral artery, please see the attached guide regarding care of the device and your leg. * Leave dressing on FOR 24 hours. CARE OF YOUR WRIST INCISION; * Bruising or purple discoloration of the skin near the puncture site is common. * You may shower. * DO NOT submerge wrist. * Leave dressing on FOR 24 hours. DEREK COOPER MD Nov 05, 2020 13:45
--- NOTE | 2020-11-05 13:51 | Cardiac Cath Report ---
Cardiac Cath Report Physician (s)/[employer] Consultant (s) Physician DEREK ANDERSON MD Pre-Procedure Diagnosis Pre-Procedure Diagnosis: Pulmonary hypertension Post-Procedure Note Procedure Start Date: Nov 05, 2020 Name of Procedure: Right heart catheterization Findings/Procedure Note 75 years old gentleman with COPD, severe pulmonary hypertension, referred by Dr. José uLis Rosas for right heart catheterization and evaluate for his PA pressure and cardiac output. After explaining the procedure to the patient all pros and cons were explained he was placed on the cardiac catheterization laboratory, signed the consent, local anesthesia was placed on the right groin no sedation was done initially, oxygen was turned off. 7 [place] sheath was placed in the right femoral vein, balloon-tip [place]-Gideon catheter advanced to the right atrium, right ventricle then pulmonary artery then left pulmonary artery branch. Cardiac output was measured by thermodilution, pressure was measured and all the chambers including the wedge position then oxygen saturation was measured for Fatmata equation then the catheter was removed and the sheath was removed with manual pressure. Patient received 1 dose of Versed upon sheath removal. Hemodynamics Pulmonary capillary wedge pressure 18 PA 95/34 mean of 53 RV 92/17, end-diastolic pressure of 17 RA 15 Oxygen saturation: Peripheral saturation 76% PA 40.4% RV 38.6% Mid RA 40.3% HRA 41% L RA 35.9% Cardiac output: Thermodilution 4.3 L/min Fatmata cardiac output 4.29 L/min Cardiac index: Thermodilution 1.94 L/min/m Fatmata cardiac index 1.93 L/min/m PVR 8.3 LUCERO TPR 12.57 LUCERO Conclusion Severe pulmonary hypertension CC Dr. José Luis Brasher Anesthesia Type: Conscious Sedation Estimated blood loss (mL): 5 ml Contrast Amount: 0 ml Total Radiation Dose: 79 mGy Post-Procedure Diagnosis Post-operative diagnosis: Severe pulmonary hypertension Coronary artery disease Hypertension Hyperlipidemia DEREK ANDERSON MD Nov 05, 2020 13:51
== END 2020-11-05 16:15 | disposition home or self-care (01) ==
LOC: CATH 13:00
PROVIDERS: ATTEND Internal Medicine Cardiovascular Disease
DX: I27.20 Pulmonary hypertension, unspecified (principal); J44.9 Chronic obstructive pulmonary disease, unspecified; I25.10 Atherosclerotic heart disease of native coronary artery without angina pectoris; E78.2 Mixed hyperlipidemia; I48.0 Paroxysmal atrial fibrillation; I71.2 Thoracic aortic aneurysm, without rupture; I11.9 Hypertensive heart disease without heart failure; I07.1 Rheumatic tricuspid insufficiency; G47.30 Sleep apnea, unspecified; N52.9 Male erectile dysfunction, unspecified; E66.9 Obesity, unspecified; Z79.899 Other long term (current) drug therapy; Z79.82 Long term (current) use of aspirin; Z79.01 Long term (current) use of anticoagulants; Z87.891 Personal history of nicotine dependence; Z95.1 Presence of aortocoronary bypass graft; Z86.73 Personal history of transient ischemic attack (TIA), and cerebral infarction without residual deficits; Z68.30 Body mass index [BMI] 30.0-30.9, adult
CPT/HCPCS: 71045; 80053; 80061; 82810; 85027; 85610; 85730; 87081; 93451; C1894; 36415

== ENCOUNTER → 2021-09-24 | Outpatient (CLI) | payer MEDICARE ==
[~2021-09-24] MED LIST changes: -AMIO200T6 PO; +AMIO200T65 PO; -HEParin (CATH LAB) 2,000 ML IV ONE; -LIDOCAINE 1% INJ 20 ML 20 ML VIAL ONE; -NS IV 1000 ML 1,000 ML IV SCH; -NS IV 1000 ML 1,000 ML ONE
== END ==
LOC: CARD 11:39
PROVIDERS: ATTEND Physician Assistant
DX: I34.0 Nonrheumatic mitral (valve) insufficiency (principal); I11.9 Hypertensive heart disease without heart failure; I25.10 Atherosclerotic heart disease of native coronary artery without angina pectoris
CPT/HCPCS: 93306

== ENCOUNTER 2022-05-03 08:00 | Inpatient (IN) | payer MEDICARE ==
[~2022-05-03] VITALS: Ht 182.9 cm; Wt 93.6 kg
[~2022-05-03 08:00] MED LIST changes: +ALBU8.5H6 IH; -RT-ALBUINH IH
--- OUTSIDE RECORDS SUMMARY | 2022-05-03 08:05 | XMS REPORT | Clinical Summary ---
Author Author [facility] Organization [facility] Address Unknown Phone Unavailable Care Team Providers Care Overweaver Name Role Phone Natali Workman FILM AND VIDEO GRAPHICS DESIGNER PCP [phone] Source Comments Some departments are not documenting in the electronic medical record. If you d o not see the information that you expected, contact Release of Information in [facility] Information Management department at [phone] for further assistan ce in locating additional records.[facility] Allergies Comments Active Allergy Reactions Severity Noted Date Amiodarone SHORTNESS OF High 07/24/2020 BREATH Medications End Date Status Medication Sig Dispensed Refills Start Date Active umeclidinium-vilanteroL Inhale 1 puff 0 (ANORO ELLIPTA) 62.5-25 by mouth into mcg/actuation inhaler the lungs daily. Active aspirin EC 81 mg tablet Take 81 mg by 0 mouth daily. Take with food. Active atorvastatin (LIPITOR) 20 Take 20 mg by 0 mg tablet mouth daily. Active other medication 1 Dose. CBD 0 Oil daily Active mv-min/folic/vit Take by 0 K/lycop/coQ10 (DAILY mouth daily. MULTIVITAMIN PO) Active apixaban (ELIQUIS) 5 mg Take 5 mg by 0 tablet mouth twice daily. Active albuterol-ipratropium Inhale 3 mL 0 (DUONEB) 0.5 mg-3 mg(2.5 solution by mg base)/3 mL nebulizer nebulizer as solution directed twice daily. Active potassium chloride SR Take 20 mEq 0 (K-DUR) 20 mEq tablet by mouth twice daily. Take with a meal and a full glass of water. Active sotaloL (BETAPACE) 120 mg Take 120 mg 0 tab by mouth twice daily. Active mycophenolate mofetil Take 1,000 mg 0 (CELLCEPT) 500 mg tablet by mouth twice daily. Take on an empty stomach. 2 tablets twice a day Active ibuprofen (ADVIL) 200 mg Take 800 mg 0 tablet by mouth twice daily. Take with food. Active bumetanide (BUMEX) 1 mg Take 1 mg by 0 tablet mouth daily. Active CANNABIDIOL (CBD) 10 Take 10 mg by 0 MG/ML SUBLINGUAL SOLUTION mouth daily. (COMPOUND) Active MULTIVITAMIN PO Take by 0 mouth. Active macitentan (OPSUMIT) 10 Take 10 mg by 0 mg tablet mouth daily. Tablets should not be split or crushed. females should avoid handling broken tablets. Active OXYGEN-AIR DELIVERY Use as 0 SYSTEMS MISC directed. 3 ltr Active tadalafiL (CIALIS) 20 mg Take 20 mg by 0 tablet mouth as Needed for Erectile dysfunction. 2 tablets Active metOLazone (ZAROXOLYN) 5 Take 5 mg by 0 mg tablet mouth daily as needed. As directed - on Tuesday and Tuesday Active spironolactone Take 50 mg by 0 (ALDACTONE) 50 mg tablet mouth daily. Take with food. As directed. , Tue, , Sat, and Sun Active magnesium oxide (MAGOX) Take 400 mg 0 400 mg (241.3 mg by mouth magnesium) tablet twice daily. 04/19/2022 Discontinued (Per Provider) dilTIAZem CD (CARDIZEM Take 1 90 capsule 3 CD) 120 mg capsule capsule by 2 mouth once daily Active Problems Problem Noted Date HLD (hyperlipidemia) 07/23/2020 Obesity 07/23/2020 Essential hypertension 07/23/2020 Coronary artery disease involving tunica-biloxi heart 07/23 Overview: 05/20/2010 - Cardiac Cathterization: ( [facility]) Patent FUCHS to LAD graft. Patent SVG graft to the RCA. There is 40% instent restenosis in the stent of the body of the SVG graft. Stent to the left Cx vessel is patent. [place] l LV systolic function. Normal LVEDP. 05/17/2012 - Cardiac Catheterization: ([facility]) New occlusion of the FUCHS t o the LAD. The proximal LAD lesion was felt to be a 60-70% stenosis. FFR across the lesion showed baseline gradient of 0.91 after lexiscan injecti on it was 0.81. 40% stenosis in the proximal LM. Patent bein graft to the RCA with patent stent in it within the bein graft. Excellent flow in the right coronary system. Occluded FUCHS to the LAD and occluded bein graft to the OM artery. 01/21/2016 - Cardiac Cathererization: ([facility]) Moderate disease in the pro ximal LAD. The FUCHS to the LAD is atretic. Has almost no flow providing very small amount of blood to the distal LAD territory, probably due to t he moderate nonobstructive disease in the proximal LAD. I think this saman ry will mature if needed in the future. Known occluded RCA with patent vein graft to the RCA. Small vessel disease distally. Known occlude d vein graft to the OM branch. Heavily calcified proximal circumflex a rtery with mild disease, nonobstructive disease. 05/12/2018 - Cardiac Catheterization: ([facility]) Patent vein graft to the RC A, occluded FUCHS to LAD and vein graft to the obtuse marginal branch. M oderate disease in the left main coronary artery. Calcified and moderat jayme diseased proximal LAD, more significant disease at the distal LAD. Nonobstructive disease. Mild to moderate disease in the Circumflex saman ry, the proper circumflex artery is very small artery with diffuse disease. 08/22/2019 - MPI: ([facility]) Patient tolerated Lexiscan well. Baseline AF p ersisted during test. Reversible ischemia involving the mid to apical in ferior wall, anteroapical segment. Normal LV size, EF = 56%. 08/29/2019 - Cardiac Catheterization: ([facility]) Atretic FUCHS due to good fl ow through the tunica-biloxi LAD, there is mild to moderate proximal LAD and moder ate distal LAD disease, the artery is smaller artery distally. Patent vei n graft to the RCA with slow flow d/t small vessel disease distally. Kno wn occluded bein graft to the circumflex artery, mild to moderate dis ease in the tunica-biloxi circumflex artery. Normal LVEDP. 02/29/2020 - ECHO: ([facility]) C oncentric LVH with EF = 60%. Biatrial enlargment, moderate mitral an d moderate tricuspid insufficiency and marked pulmonary HTN. Minimal aort ic sclerosis and mild aortic insufficiency. S/P CABG (coronary artery bypass graft) 07/23/2020 Overview: 04/10/2008 - CABG: ([facility]) C ABG x 3 with FUCHS to LAD and reverse saphenous vein graft to the OM and to t he PDA. CVA (cerebral vascular accident) 07/23/2020 LANDEN (obstructive sleep apnea) 07/23/2020 ED (erectile dysfunction) 07/23/2020 COPD (chronic obstructive pulmonary disease) 021 Stenosis of right carotid artery 07/23/2020 Overview: 02/28/2008 - Right carotid endartectomy with patch angioplasty and intravascular shunting. ([facility]) Atrial fibrillation 07/23/2020 Overview: 08/29/2019 - DCCV: ([facility]) Successful DCCV with no complication. 09/19/2019 - DCCV: ([facility]) Successful DCCV. 10/15/2019 - LAAA: ([facility]) 09/25/2020 - ECHO: ([facility]) LV cavity size is normal. There is moderate conc entric hypertrophy. Systolic function is normal. EF = 50%. There w ere no regional wall motion abnormalities identified. Doppler para meters are consistent with reversible restrictive pattern, indicat elaine of decrease in LV diastolic compliance and or increase in LA pressu re. RV cavity size is increased. LA is mild to moderately dilatd, 4.73 c m, RA is dilated. Moderate MVR. AV thickening, consistent with sclerosi s. Moderate TVR. PASP in range 90-95mmHg. Status post placement of implantable loop recorder 0 07/23/2020 Encounters Care Team Description Date Type Specialty 04/22/2022 Hospital Cardiology Encounter Janis Acevedo RN Implantable Loop Recorder-Abnormal Resul ts(Rhythm) (AF) 04/22/2022 Telephone Cardiology 04/21/2022 Hospital Cardiology Encounter 04/20/2022 Hospital Cardiology Encounter 04/19/2022 Hospital Cardiology Encounter Janis Acevedo RN Implantable Loop Recorder-Abnormal Resul ts(Rhythm) (AF) 04/19/2022 Telephone Cardiology 04/07/2022 Hospital Cardiology Encounter 03/29/2022 Hospital Cardiology Encounter Harman Tinajero RN Implantable Loop Recorder-Abnormal Resul ts(Rhythm) (AF) 03/29/2022 Telephone Cardiology 03/17/2022 Hospital Cardiology Encounter Florentin Lozano RN HRM - Abnormal Results (Remote Device - Abnormal Rhythms) 03/17/2022 Telephone Cardiology 03/08/2022 Hospital Cardiology Encounter 02/04/2022 Hospital Cardiology Encounter from Last 3 Months Surgical History Surgery Date Site/Laterality Comments CARDIOVERSION ELECTROCARDIOGRAM DOPPLER ECHOCARDIOGRAPHY CARDIOVASCULAR STRESS TEST HX CORONARY ARTERY BYPASS GRAFT CARDIAC CATHERIZATION CAROTID ENDARDECTOMY RHYTHM DEVICE PLACEMENT Medical History Medical History Date Comments HLD (hyperlipidemia) 07/23/2020 Obesity 07/23/2020 Essential hypertension 07/23/2020 Coronary artery disease involving 07/23/2020 tunica-biloxi heart S/P CABG (coronary artery bypass 07/23/2020 graft) CVA (cerebral vascular accident) ([facility]) 07/23/2020 LANDEN (obstructive sleep apnea) 07/23/2020 ED (erectile dysfunction) 07/23/2020 COPD (chronic obstructive pulmonary 07/23/2020 disease) ([facility]) Stenosis of right carotid artery 07/23/2020 Atrial fibrillation (HCC) 07/23/2020 Status post placement of implantable 07/23/2020 loop recorder Family History Relation Name Status Comments Father Mother Social History Date Tobacco Use Types Packs/Day Years Used Quit: 2007 Smoking Tobacco: Former Cigarettes Smokeless Tobacco: Never Tobacco Cessation: Counseling Given: No Comments Alcohol Use Standard Drinks/Week Yes 3 (1 standard drink = 0.6 o z pure alcohol) Sex Assigned at Date Recorded Not on file Obstetrics History Last Filed Vital Signs Reading Time Taken Comments Vital Sign 116/63 07/24/2021 1:24 PM CDT Blood Pressure 50 07/24/2021 1:24 PM CDT Pulse 36.7 C (98 F) 07/24/2020 9:35 AM CDT Temperature - - Respiratory Rate 95% 10/22/2020 8:34 AM CDT Oxygen Saturation - - Inhaled Oxygen Concentration 102.1 kg (225 lb) 10/22/2020 8:34 AM CDT Weight 182.9 cm (6') 10/22/2020 8:34 AM CDT Height 30.52 10/22/2020 8:34 AM CDT Body Mass Index Plan of Treatment Health Maintenance Due Date Last Done Comments MEDICARE ANNUAL WELLNESS 1945 VISIT DTAP/TDAP VACCINES (1 - 05/18/1965 Tdap) HEPATITIS C SCREENING 05/18/1965 PHYSICAL (COMPREHENSIVE) 05/18/1965 EXAM SHINGLES RECOMBINANT 05/18/1966 VACCINE (1 of 2) COLORECTAL CANCER 05/18/1992 SCREENING ABDOMINAL AORTIC ANEURYSM 05/18/2012 SCREENING COVID-19 VACCINE (4 - 03/09/2021 01/12/2021, Booster for Moderna 03/27/2020, series) 02/27/2020 INFLUENZA VACCINE (#1) 2021 PNEUMOCOCCAL VACCINE (2 - 02/07/2022 02/07/2021 PCV) ADVANCED CARE PLANNING 02/14/2022 DISCUSSION AND DOCUMENTATION DEPRESSION SCREENING 02/14/2022 Medical Devices Device Identifier Shelf Expiration Date Model / Serial / L ot Implanted Type Area Manufactur er Loop Recorder Loop Recorder Procedures Comments Procedure Name Priority Date/Time Associated Diag nosis DEVICE EVALUATION - Routine 04/19/2022 Status pos t placement of REMOTE ILR 12:48 PM SCHOOL SERVICES OFFICER implantable loop re star DEVICE EVALUATION - Routine 04/10/2022 Status pos t placement of REMOTE ILR CHARGES 11:57 AM SCHOOL SERVICES OFFICER implantable loop r ecorder DEVICE EVALUATION - Routine 04/07/2022 Status pos t placement of REMOTE ILR 2:01 PM SCHOOL SERVICES OFFICER implantable loop re star DEVICE EVALUATION - Routine 03/17/2022 Status pos t placement of REMOTE ILR 1:40 PM SCHOOL SERVICES OFFICER implantable loop re star DEVICE EVALUATION - Routine 03/10/2022 Status pos t placement of REMOTE ILR CHARGES 7:48 AM SCHOOL SERVICES OFFICER implantable loop r ecorder DEVICE EVALUATION - Routine 02/07/2022 Status pos t placement of REMOTE ILR CHARGES 7:50 AM SCHOOL SERVICES OFFICER implantable loop r ecorder DEVICE EVALUATION - Routine 02/04/2022 Status pos t placement of REMOTE ILR 2:37 PM SCHOOL SERVICES OFFICER implantable loop re star from Last 3 Months Results * DEVICE EVALUATION - REMOTE ILR NO CHARGES (04/19/2022 12:48 PM SCHOOL SERVICES OFFICER) Pathologist Signature Component Value Ref Test Method Analysis Performed A t Range Time Device Type ILR MURJ Generator Medtronic MURJ Store Clerk Generator Model # LNQ11 MURJ Generator Serial # [id number] MURJ Generator Implnat [id number] MURJ Date Pacemaker Dependant no MURJ On Anticoagulation yes MURJ EP SYSTEM MRI yes MURJ CONDITIONAL Modality Anatomical Region Laterality MAC CV Heart Rhythm Anatomical Location / Laterality Collection Method / Volume Ari ection Time Received Time Specimen (Source) 04/19/2022 12:05 AM SCHOOL SERVICES OFFICER Narrative 04/19/2022 7:16 PM SCHOOL SERVICES OFFICER Title: Normal Sinus Rhythm * Stored EGMs are consistent with or suggestive of Normal Sinus Rhythm with ectopy Title: Normal Sinus Rhythm * Stored EGMs are consistent with or suggestive of Normal Sinus Rhythm Title: Sinus Arrhythmia * Stored EGMs are consistent with or suggestive of Sinus Arrhythmia with ectopy * AT [place]: 0.07% * Total number of episodes: 1 Title: Alert: Yellow EP RN notified of AF Additional Notes: reviewing location remote Title: Tachycardia: AF * Stored EGMs are consistent with or suggestive of Atrial Fibrillation in progress since 04/18 @ 0920 * Total episodes: 1 * AT burden: 61.53% Julio Tee MD HEART RHYTHM MANAGEMENT ORD ERABLES * DEVICE EVALUATION - REMOTE ILR CHARGES (04/10/2022 11:57 AM SCHOOL SERVICES OFFICER) Pathologist Signature Component Value Ref Test Method Analysis Performed A t Range Time Device Type ILR MURJ Generator Medtronic MURJ Store Clerk Generator Model # LNQ11 MURJ Generator Serial # [id number] MURJ Generator Implnat [id number] MURJ Date Pacemaker Dependant no MURJ On Anticoagulation yes MURJ EP SYSTEM MRI yes MURJ CONDITIONAL Modality Anatomical Region Laterality MAC CV Heart Rhythm Anatomical Location / Laterality Collection Method / Volume Ari ection Time Received Time Specimen (Source) 03/29/2022 12:05 AM SCHOOL SERVICES OFFICER Narrative 04/05/2022 4:34 PM SCHOOL SERVICES OFFICER Title: Tachycardia: AF * Stored EGMs are consistent with or suggestive of Atrial Fibrillation lasting 15 hours 30 minutes * Total episodes: 1 * AT burden: 16.22% Title: Normal Remote: No Events * This is a normal remote diagnostic device check * Alerts or events: None * Battery data was reviewed * Battery status: OK, * Presenting rhythm reviewed * Heart Rate Histograms reviewed Title: Tachycardia: AF * Stored EGMs are consistent with or suggestive of Atrial Fibrillation/AFL * Total episodes: 1 * AT burden: 96.25% Title: Tachycardia: AF * Stored EGMs are consistent with or suggestive of Atrial Fibrillation * Total episodes: 1 * AT burden: 98.75% Title: Tachycardia: AF * Stored EGMs are consistent with or suggestive of Atrial Fibrillation with PVCs * Total episodes: 1 * AT burden: 98.89% Title: Tachycardia: AF * Stored EGMs are consistent with or suggestive of Atrial Fibrillation * Total episodes: 1 * AT burden: 99.65% Title: Tachycardia: AF * Stored EGMs are consistent with or suggestive of Atrial Fibrillation * Total episodes: 1 * AT burden: 99.86% Title: Tachycardia: AF * Stored EGMs are consistent with or suggestive of Atrial Fibrillation * AT burden: 97.5% Title: Alert: Yellow EP RN notified of AF burden near 100% since ~ 03/19/22. Additional Notes: reviewing location remote Julio Tee MD HEART RHYTHM MANAGEMENT ORD ERABLES * DEVICE EVALUATION - REMOTE ILR NO CHARGES (04/07/2022 2:01 PM SCHOOL SERVICES OFFICER) Pathologist Signature Component Value Ref Test Method Analysis Performed A t Range Time Device Type ILR MURJ Generator [employer] MURJ Store Clerk Generator Model # LNQ11 MURJ Generator Serial # [id number] MURJ Generator Implnat [id number] MURJ Date Pacemaker Dependant no MURJ On Anticoagulation yes MURJ EP SYSTEM MRI yes MURJ CONDITIONAL Modality Anatomical Region Laterality MAC CV Heart Rhythm Anatomical Location / Laterality Collection Method / Volume Ari ection Time Received Time Specimen (Source) 04/07/2022 12:50 PM SCHOOL SERVICES OFFICER Narrative 04/19/2022 7:14 PM SCHOOL SERVICES OFFICER Title: Tachycardia: AF * Stored EGMs are consistent with or suggestive of Atrial Fibrillation * Total episodes: 1 * AT burden: 95.83% Title: Tachycardia: AF * Stored EGMs are consistent with or suggestive of Atrial Fibrillation * Total episodes: 1 * AT burden: 98.61% Title: Sinus Arrhythmia * Stored EGMs are consistent with or suggestive of Sinus Arrhythmia with ectopy * AT [place]: 47.5% * Total number of episodes: 1 Title: Normal Remote: No Events * SUMMARY REPORT * Alerts or events: None * Battery data was reviewed * Battery status: OK, * Presenting rhythm reviewed * Heart Rate Histograms reviewed Additional Notes: Location: [facility] Julio Tee MD HEART RHYTHM MANAGEMENT ORD ERABLES * DEVICE EVALUATION - REMOTE ILR NO CHARGES (03/17/2022 1:40 PM SCHOOL SERVICES OFFICER) Pathologist Signature Component Value Ref Test Method Analysis Performed A t Range Time Device Type ILR MURJ Generator Medtronic MURJ Store Clerk Generator Model # LNQ11 MURJ Generator Serial # [id number] MURJ Generator Implnat [id number] MURJ Date Pacemaker Dependant no MURJ On Anticoagulation yes MURJ EP SYSTEM MRI yes MURJ CONDITIONAL Modality Anatomical Region Laterality MAC CV Heart Rhythm Anatomical Location / Laterality Collection Method / Volume Ari ection Time Received Time Specimen (Source) 03/17/2022 12:05 AM SCHOOL SERVICES OFFICER Narrative 03/23/2022 12:22 PM SCHOOL SERVICES OFFICER Title: Tachycardia: AF * Stored EGMs are consistent with or suggestive of Atrial Fibrillation lasting 1 hour 8 minutes * Total episodes: 1 * AT burden: 4.72% Title: Tachycardia: AFL * Stored EGMs are consistent with or suggestive of Atrial Flutter * Total episodes: 1 * AT burden: 4.1% Title: Sinus Arrhythmia * Stored EGMs are consistent with or suggestive of Sinus Arrhythmia * AT [place]: 0.11% * Total number of episodes: 1 Title: Tachycardia: AF * Stored EGMs are consistent with or suggestive of Atrial Fibrillation lasting 2 hours 10 minutes * Total episodes: 1 * AT burden: 9.17% Title: Alert: Yellow EP RN notified of AF events Julio Tee MD HEART RHYTHM MANAGEMENT ORD ERABLES * DEVICE EVALUATION - REMOTE ILR CHARGES (03/10/2022 7:48 AM SCHOOL SERVICES OFFICER) Pathologist Signature Component Value Ref Test Method Analysis Performed A t Range Time Device Type ILR MURJ Generator Medtronic MURJ Store Clerk Generator Model # LNQ11 MURJ Generator Serial # [id number] MURJ Generator Implnat [id number] MURJ Date Pacemaker Dependant no MURJ On Anticoagulation yes MURJ EP SYSTEM MRI yes MURJ CONDITIONAL Modality Anatomical Region Laterality MAC CV Heart Rhythm Anatomical Location / Laterality Collection Method / Volume Ari ection Time Received Time Specimen (Source) 03/08/2022 12:05 AM SCHOOL SERVICES OFFICER Narrative 03/21/2022 8:20 AM SCHOOL SERVICES OFFICER Title: Sinus Arrhythmia * Stored EGMs are consistent with or suggestive of Sinus Arrhythmia * AT [place]: 0.56% * Total number of episodes: 1 Title: Tachycardia: AFL * Stored EGMs are consistent with or suggestive of Atrial Flutter * Total episodes: 1 * AT burden: 0.14% Title: Tachycardia: AFL * Stored EGMs are consistent with or suggestive of Atrial Flutter * Total episodes: 1 * AT burden: 1.53% Title: Tachycardia: AF * Stored EGMs are consistent with or suggestive of Atrial Fibrillation lasting * Total episodes: 1 * AT burden: 7.64% Title: Sinus Arrhythmia * Stored EGMs are consistent with or suggestive of Sinus Arrhythmia * AT [place]: 0.28% * Total number of episodes: 1 Title: Sinus Arrhythmia * Stored EGMs are consistent with or suggestive of Sinus Arrhythmia * AT [place]: 0.69% * Total number of episodes: 1 Title: Sinus Arrhythmia * Stored EGMs are consistent with or suggestive of Sinus Arrhythmia with ectopy * AT [place]: 0.07% * Total number of episodes: 1 Title: Tachycardia: AF * Stored EGMs are consistent with or suggestive of Atrial Fibrillation lasting 28 minutes * Total episodes: 1 * AT burden: 0.69% Title: Sinus Arrhythmia * Stored EGMs are consistent with or suggestive of Sinus Arrhythmia with ectopy * AT [place]: 4.31% * Total number of episodes: 1 Title: Normal Sinus Rhythm * Stored EGMs are consistent with or suggestive of Normal Sinus Rhythm Title: Tachycardia: AF * Stored EGMs are consistent with or suggestive of Atrial Fibrillation lasting 28 minutes * Total episodes: 1 * AT burden: 1.94% Title: Tachycardia: AF * Stored EGMs are consistent with or suggestive of Atrial Fibrillation vs sinus arrhythmia 2 minutes in duration * Total episodes: 1 * AT burden: 0.02% Title: Normal Remote: No Events * This is a normal remote diagnostic device check * Alerts or events: None * Battery data was reviewed * Battery status: OK, * Presenting rhythm reviewed * Heart Rate Histograms reviewed Title: Sinus Arrhythmia * Stored EGMs are consistent with or suggestive of Sinus Arrhythmia with ectopy * AT [place]: 0.03% * Total number of episodes: 1 Julio Tee MD HEART RHYTHM MANAGEMENT ORD ERABLES * DEVICE EVALUATION - REMOTE ILR CHARGES (02/07/2022 7:50 AM SCHOOL SERVICES OFFICER) Pathologist Signature Component Value Ref Test Method Analysis Performed A t Range Time Device Type ILR MURJ Generator Medtronic MURJ Store Clerk Generator Model # LNQ11 MURJ Generator Serial # [id number] MURJ Generator Implnat [id number] MURJ Date Pacemaker Dependant no MURJ On Anticoagulation yes MURJ EP SYSTEM MRI yes MURJ CONDITIONAL Modality Anatomical Region Laterality MAC CV Heart Rhythm Anatomical Location / Laterality Collection Method / Volume Ari ection Time Received Time Specimen (Source) 01/25/2022 12:05 AM SCHOOL SERVICES OFFICER Narrative 02/08/2022 5:30 PM SCHOOL SERVICES OFFICER Title: Tachycardia: AF * Stored EGMs are consistent with or suggestive of Atrial Fibrillation lasting 5 hours 54 minutes * Total episodes: 1 * AT burden: 10.09% Title: Sinus Pause * Stored EGMs are consistent with or suggestive of a pause or pauses > 3 seconds * Total episodes: 1 Additional Notes: reviewing location remote Title: Tachycardia: AF * Stored EGMs are consistent with or suggestive of Atrial Fibrillation lasting 4 hours 58 minutes * Total episodes: 1 * AT burden: 24.58% Title: Sinus Arrhythmia * Stored EGMs are consistent with or suggestive of Sinus Arrhythmia * AT [place]: 3.33% * Total number of episodes: 1 Julio Tee MD HEART RHYTHM MANAGEMENT ORD ERABLES * DEVICE EVALUATION - REMOTE ILR NO CHARGES (02/04/2022 2:37 PM SCHOOL SERVICES OFFICER) Pathologist Signature Component Value Ref Test Method Analysis Performed A t Range Time Device Type ILR MURJ Generator Medtronic MURJ Store Clerk Generator Model # LNQ11 MURJ Generator Serial # [id number] MURJ Generator Implnat [id number] MURJ Date Pacemaker Dependant no MURJ On Anticoagulation yes MURJ EP SYSTEM MRI yes MURJ CONDITIONAL Modality Anatomical Region Laterality MAC CV Heart Rhythm Anatomical Location / Laterality Collection Method / Volume Ari ection Time Received Time Specimen (Source) 02/04/2022 12:44 PM SCHOOL SERVICES OFFICER Narrative 02/15/2022 4:56 PM SCHOOL SERVICES OFFICER [02/15/2022 4:55:11 PM - JULIO TEE] His A. fib burden overall remains low. In November he had an increase in A. fib burden. However since then his episodes of A. fib have been very spotty. In January he has had 6 episodes ranging in duration from 2 minutes to up to 1 hour and 52 minutes. Please see my last office visit note. No change in plan. Continue sotalol for now. Title: Sinus Arrhythmia * Stored EGMs are consistent with or suggestive of Sinus Arrhythmia * AT [place]: 0.05% * Total number of episodes: 1 Title: Normal Sinus Rhythm * Stored EGMs are consistent with or suggestive of Normal Sinus Rhythm with PACs Title: Tachycardia: AF * Stored EGMs are consistent with or suggestive of Atrial Fibrillation * Total episodes: 1 * AT burden: 1.61% Title: Sinus Arrhythmia * Stored EGMs are consistent with or suggestive of Sinus Arrhythmia * AT [place]: 0.14% * Total number of episodes: 1 Title: Normal Remote: No Events * SUMMARY REPORT * Alerts or events: None * Battery data was reviewed * Battery status: OK, * Presenting rhythm reviewed * Heart Rate Histograms reviewed Additional Notes: Location: [facility] Julio Tee MD HEART RHYTHM MANAGEMENT ORD ERABLES from Last 3 Months Insurance Type Payer Benefit Subscriber ID Effective Phone Address Plan / Dates Group Medicare MEDICARE MEDICARE [id number] 2012-P [phone] [address] [place] [address] Medicare BCBS [place] BCBS [id number] 2020-P [phone] [id number] [place] [phone] (Home) [place], [place] [address] Care Teams Start Date End Date Overweaver Relationship Specialty 07/24/20 Natali Workman, PCP - General Nurse FILM AND VIDEO GRAPHICS DESIGNER Practitioner [address] [place] [address]
--- OUTSIDE RECORDS SUMMARY | 2022-05-03 08:05 | XMS REPORT | Encounter Summary ---
Author Author [facility] Organization [facility] Address Unknown Phone Unavailable Care Team Providers Care Bark Peeler Name Role Phone Natali Workman COMPUTER CONSOLE OPERATOR PCP [phone] Encounter Details Care Team Description Date Type Department 03/08/2022 Hospital Cardiovascular [facility] cine Encounter Remote Device Check [phone] Social History Date Tobacco Use Types Packs/Day Years Used Quit: 2007 Smoking Tobacco: Former Cigarettes Smokeless Tobacco: Never Comments Alcohol Use Standard Drinks/Week Yes 3 (1 standard drink = 0.6 o z pure alcohol) Sex Assigned at Date Recorded Not on file documented as of this encounter Functional Status Date of Assessment Functional Status Response 07/24/2020 Does the patient have a hearing impairment: No 07/24/2020 Does the patient have a visual impairment: No 07/24/2020 Does the patient have impaired ambulation: Yes 07/24/2020 Does the patient have an activity of daily living No (ADL) impairment: 07/24/2020 Does the patient have an instrumental activity of No daily living (IADL) impairment: Date of Assessment Cognitive Status Response 07/24/2020 Does the patient have a cognitive impairment: No documented as of this encounter Medications at Time of Discharge Start Date End Date Medication Sig Dispensed Refills albuterol-ipratropium Inhale 3 mL 0 (DUONEB) 0.5 mg-3 mg(2.5 solution by mg base)/3 mL nebulizer nebulizer as solution directed twice daily. apixaban (ELIQUIS) 5 mg Take 5 mg by 0 tablet mouth twice daily. aspirin EC 81 mg tablet Take 81 mg by 0 mouth daily. Take with food. atorvastatin (LIPITOR) 20 Take 20 mg by 0 mg tablet mouth daily. bumetanide (BUMEX) 1 mg Take 1 mg by 0 tablet mouth daily. CANNABIDIOL (CBD) 10 Take 10 mg by 0 MG/ML SUBLINGUAL SOLUTION mouth daily. (COMPOUND) ibuprofen (ADVIL) 200 mg Take 800 mg 0 tablet by mouth twice daily. Take with food. macitentan (OPSUMIT) 10 Take 10 mg by 0 mg tablet mouth daily. Tablets should not be split or crushed. females should avoid handling broken tablets. magnesium oxide (MAGOX) Take 400 mg 0 400 mg (241.3 mg by mouth magnesium) tablet twice daily. metOLazone (ZAROXOLYN) 5 Take 5 mg by 0 mg tablet mouth daily as needed. As directed - on Tuesday and Tuesday MULTIVITAMIN PO Take by 0 mouth. mv-min/folic/vit Take by 0 K/lycop/coQ10 (DAILY mouth daily. MULTIVITAMIN PO) mycophenolate mofetil Take 1,000 mg 0 (CELLCEPT) 500 mg tablet by mouth twice daily. Take on an empty stomach. 2 tablets twice a day other medication 1 Dose. CBD 0 Oil daily OXYGEN-AIR DELIVERY Use as 0 SYSTEMS MISC directed. 3 ltr potassium chloride SR Take 20 mEq 0 (K-DUR) 20 mEq tablet by mouth twice daily. Take with a meal and a full glass of water. sotaloL (BETAPACE) 120 mg Take 120 mg 0 tab by mouth twice daily. spironolactone Take 50 mg by 0 (ALDACTONE) 50 mg tablet mouth daily. Take with food. As directed. , Tue, , Sat, and Sun tadalafiL (CIALIS) 20 mg Take 20 mg by 0 tablet mouth as Needed for Erectile dysfunction. 2 tablets umeclidinium-vilanteroL Inhale 1 puff 0 (ANORO ELLIPTA) 62.5-25 by mouth into mcg/actuation inhaler the lungs daily. 01/11/2022 04/19/2022 dilTIAZem CD (CARDIZEM Take 1 90 capsule 3 CD) 120 mg capsule capsule by mouth once daily documented as of this encounter Discharge Disposition Code Departure Means Destination Disposition Home Home or Self Care documented in this encounter Plan of Treatment Not on filedocumented as of this encounter Procedures Comments Procedure Name Priority Date/Time Associated Diag nosis DEVICE EVALUATION - Routine 03/10/2022 Status pos t placement of REMOTE ILR CHARGES 7:48 AM STEAMTABLE WORKER implantable loop r ecorder documented in this encounter Results * DEVICE EVALUATION - REMOTE ILR CHARGES (03/10/2022 7:48 AM STEAMTABLE WORKER) Pathologist Signature Component Value Ref Test Method Analysis Performed A t Range Time Device Type ILR MURJ Generator MEDEMtronic MURJ Mri Technician Generator Model # LNQ11 MURJ Generator Serial # [id number] MURJ Generator Implnat [id number] MURJ Date Pacemaker Dependant no MURJ On Anticoagulation yes MURJ EP SYSTEM MRI yes MURJ CONDITIONAL Modality Anatomical Region Laterality MAC CV Heart Rhythm Anatomical Location / Laterality Collection Method / Volume Ari ection Time Received Time Specimen (Source) 03/08/2022 12:05 AM STEAMTABLE WORKER Narrative 03/21/2022 8:20 AM STEAMTABLE WORKER Title: Sinus Arrhythmia * Stored EGMs are consistent with or suggestive of Sinus Arrhythmia * AT [place]: 0.56% * Total number of episodes: 1 [...] or suggestive of Sinus Arrhythmia * AT [place]: 0.28% * Total number of episodes: 1 Title: Sinus Arrhythmia * Stored EGMs are consistent with or suggestive of Sinus Arrhythmia * AT [place]: 0.69% * Total number of episodes: 1 Title: Sinus Arrhythmia * Stored EGMs are consistent with or suggestive of Sinus Arrhythmia with ectopy * AT [place]: 0.07% * Total number of episodes: 1 Title: Tachycardia: AF * Stored EGMs are consistent with or suggestive of Atrial Fibrillation lasting 28 minutes * Total episodes: 1 * AT burden: 0.69% Title: Sinus Arrhythmia * Stored EGMs are consistent with or suggestive of Sinus Arrhythmia with ectopy * AT [place]: 4.31% * Total number of episodes: 1 [...] of Sinus Arrhythmia with ectopy * AT [place]: 0.03% * Total number of episodes: 1 Julio Tee MD HEART RHYTHM MANAGEMENT ORD ERABLES documented in this encounter Visit Diagnoses Not on filedocumented in this encounter Additional Health Concerns Noted Time Assessment 10/22/2020 8:34 AM CDT A fall risk assessment has been complet ed for the patient documented as of this encounter Care Teams Start Date End Date Bark Peeler Relationship Specialty 07/24/20 Natali Workman, PCP - General Nurse COMPUTER CONSOLE OPERATOR Practitioner [address] [place], [place] [id number] documented as of this encounter
--- OUTSIDE RECORDS SUMMARY | 2022-05-03 08:05 | XMS REPORT | Encounter Summary ---
Author Author [facility] Organization [facility] Address Unknown Phone Unavailable Care Team Providers Care Dental Laboratory Manager Name Role Phone Natali Workman WHEEL ROLLER PCP [phone] Encounter Details Care Team Description Date Type Department 04/20/2022 Hospital Cardiovascular [facility] cine Encounter Remote Device Check [phone] Social History Date Tobacco Use Types Packs/Day [...] mouth into mcg/actuation inhaler the lungs daily. documented as of this encounter Discharge Disposition Code Departure Means Destination Disposition Home Home or Self Care documented in this encounter Plan of Treatment Date/Time Name Type Priority Associated Diag noses 04/20/2022 9:47 AM OUTBOARD MOTOR ASSEMBLER DEVICE EVALUATION - Device Check Routine Status pos t placement of REMOTE ILR Remote implantable loop re star documented as of this encounter Visit Diagnoses Not on filedocumented in this encounter Additional Health Concerns Noted Time Assessment 10/22/2020 8:34 AM CDT A fall risk assessment has been complet ed for the patient documented as of this encounter Care Teams Start Date End Date Dental Laboratory Manager Relationship Specialty 07/24/20 Natali Workman, PCP - General Nurse WHEEL ROLLER Practitioner [address] [place] [address] documented as of this encounter
--- OUTSIDE RECORDS SUMMARY | 2022-05-03 08:05 | XMS REPORT | Encounter Summary ---
Author Author [facility] Organization [facility] Address Unknown Phone Unavailable Care Team Providers Care Social Services Analyst Name Role Phone Natali Workman SPOUTING INSTALLER PCP [phone] Encounter Details Care Team Description Date Type Department 04/07/2022 Hospital Cardiovascular [facility] cine Encounter Remote Device Check [phone] Social History Date Tobacco Use Types Packs/Day [...] Associated Diag nosis DEVICE EVALUATION - Routine 04/07/2022 Status pos t placement of REMOTE ILR 2:01 PM LEAD SYSTEMS DEVELOPER implantable loop re star documented in this encounter Results * DEVICE EVALUATION - REMOTE ILR NO CHARGES (04/07/2022 2:01 PM LEAD SYSTEMS DEVELOPER) Pathologist Signature Component Value Ref Test Method Analysis Performed A t Range Time Device Type ILR MURJ Generator Medtronic MURJ Peer Specialist Generator Model # LNQ11 MURJ Generator Serial # [id number] MURJ Generator Implnat [id number] MURJ Date Pacemaker Dependant no MURJ On Anticoagulation yes MURJ EP SYSTEM MRI yes MURJ CONDITIONAL Modality Anatomical Region Laterality MAC CV Heart Rhythm Anatomical Location / Laterality Collection Method / Volume Ari ection Time Received Time Specimen (Source) 04/07/2022 12:50 PM LEAD SYSTEMS DEVELOPER Narrative 04/19/2022 7:14 PM LEAD SYSTEMS DEVELOPER Title: Tachycardia: AF * Stored EGMs are consistent with or suggestive of Atrial Fibrillation * Total episodes: 1 * AT burden: 95.83% Title: Tachycardia: AF * Stored EGMs are consistent with or suggestive of Atrial Fibrillation * Total episodes: 1 * AT burden: 98.61% Title: Sinus Arrhythmia * Stored EGMs are consistent with or suggestive of Sinus Arrhythmia with ectopy * AT [place]: 47.5% * Total number of episodes: 1 [...] encounter Care Teams Start Date End Date Social Services Analyst Relationship Specialty 07/24/20 Natali Workman, PCP - General Nurse SPOUTING INSTALLER Practitioner [address] [place] [address] documented as of this encounter
--- OUTSIDE RECORDS SUMMARY | 2022-05-03 08:05 | XMS REPORT | Encounter Summary ---
Author Author [facility] Organization [facility] Address Unknown Phone Unavailable Care Team Providers Care Any Commodity Buyer Name Role Phone Natali Workman DIESEL BUS MECHANIC PCP [phone] Encounter Details Care Team Description Date Type Department 04/21/2022 Hospital Cardiovascular [facility] cine Encounter Remote Device Check [phone] Social History Date Tobacco Use Types Packs/Day [...] Date/Time Name Type Priority Associated Diag noses 04/21/2022 8:15 AM MANAGER CRITICAL CARE UNIT DEVICE EVALUATION - Device Check Routine Status pos t placement of REMOTE ILR Remote implantable loop re star documented as of this encounter Visit Diagnoses Not on filedocumented in this encounter Additional Health Concerns Noted Time Assessment 10/22/2020 8:34 AM CDT A fall risk assessment has been complet ed for the patient documented as of this encounter Care Teams Start Date End Date Any Commodity Buyer Relationship Specialty 07/24/20 Natali Workman, PCP - General Nurse DIESEL BUS MECHANIC Practitioner [address] [place] [address] documented as of this encounter
--- OUTSIDE RECORDS SUMMARY | 2022-05-03 08:05 | XMS REPORT | Encounter Summary ---
Author Author [facility] Organization [facility] Address Unknown Phone Unavailable Care Team Providers Care Sailmaker Name Role Phone Natali Workman COORDINATE MEASURING MACHINE OPERATOR PCP Reason for Visit * Reason Onset Date Comments Implantable Loop 04/19/2022 AF Recorder-Abnormal Results(Rhythm) Encounter Details Care Team Description Date Type Department Janis Acevedo RN Implantable Loop Recorder-Abnormal Resul ts(Rhythm) (AF) 04/19/2022 Telephone Cardiology: [facility] [address] [place] [address] Social History Date Tobacco Use Types Packs/Day [...] impairment: No documented as of this encounter Miscellaneous Notes * Telephone Encounter - Ana Dockery RN - 04/21/2022 10:35 AM CST Images from the original note were not included. Zoila Peng Nurse Ep Team C AF see PDF Addressed on 04/19. Patient is contacting Dr. Cooper's office to arrange Vince valadez. Please see below ER HELPER * Telephone Encounter - Shari Koch RN - 04/20/2022 3:38 PM CST Images from the original note were not included. Zoila Bowman LPN P Cvdominic Nurse Ep Team C VM on triage line from Deysi with Dr. Cooper office at 2:44pm. Said that called and he is in AF. What does [facility] want them to do, does [facility] want to treat him? Call Deysi at #[phone]. I called Deysi to discuss that patient should now go ahead and be set up for T ikosyn as planned in the past. Deysi states understanding with no further conc erns or questions. ER HELPER * Telephone Encounter - Shari Koch RN - 04/20/2022 9:39 AM CST Images from the original note were not included. Zoila Peng Nurse Ep Team C AF 04/18 17 hours 16 minutes Addressed yesterday with patient. Patient to call Dr. Cooper. ER HELPER * Telephone Encounter - Janis Acevedo RN - 04/19/2022 2:43 PM CST Spoke to . Reviewed ILR report showing pt in AF since 35 AM. She said pt bates dn't complained of any symptoms but didn't seem like he felt real well yesterday . He ended up not having the drug admission in [place]. When they presented fo r the admission they hadn't held Sotalol and pt was in SR so it was decided to c raizael. They did DC diltiazem d/t bradycardia. Still taking sotalol and eliquis. BP 120/60s, HR 60s. Encouraged to call Dr. Cooper office today and let them know pt is back in AF and see about rescheduling drug admit. Also encouraged her to CB if pt starts c/o dizzy, lightheaded, chest pain, heart racing. Explained that HR was under good control at time of transmission. Reviewed reasons to seek ER care for AF. Pt verbalized understanding and agreement to plan. ER HELPER * Telephone Encounter - Janis Acevedo RN - 04/19/2022 2:42 PM CST ----- Message from Zoila Peng sent at 04/19/2022 12:43 PM WINDER HELPER ----- Regarding: [facility] LINQ In AF since 04/18 @ 0920 ER HELPER documented in this encounter Plan of Treatment Not on filedocumented as of this encounter Visit Diagnoses Not on filedocumented in this encounter Discontinued Medications Start Date End Date Medication Sig Discontinue Reason 01/11/2022 04/19/2022 dilTIAZem CD (CARDIZEM Take 1 Per Provider CD) 120 mg capsule capsule by mouth once daily documented as of this encounter Additional Health Concerns Noted Time Assessment 10/22/2020 8:34 AM CDT A fall risk assessment has been complet ed for the patient documented as of this encounter Care Teams Start Date End Date Sailmaker Relationship Specialty 07/24/20 Natali Workman, PCP - General Nurse COORDINATE MEASURING MACHINE OPERATOR Practitioner [address] [facility] [place] [address] documented as of this encounter
--- OUTSIDE RECORDS SUMMARY | 2022-05-03 08:05 | XMS REPORT ---
Author Shiva Baer Organization [facility] Address [address] [place], [place] [id number] Care Team Providers Care Press Tender Long Goods Name Role Phone José Luis Aranda PCP Unavailable Natali Workman PreferredProvider Allergies and Adverse Reactions Name Reaction Notes NO KNOWN DRUG ALLERGIES Plan of Treatment Planned Activity Comments Planned Date Planned Time Plan/Goal CMP 12/16/2019 12:00 AM Amiodarone level 11/22/2019 12:00 AM RENAL FUNCTION PANEL 12/20/2019 12:00 AM CBC W/ AUTO DIFF (RFLX MAN DIFF IF IND). 07/07/2020 12:00 AM CMP 07/07/2020 12:00 AM Renal function panel 01/30/2021 12:00 AM ECHO 2D Complete - Adult 05/01/2021 12:00 AM POTASSIUM 05/05/2021 12:00 AM High resolution computed tomography of chest without intrave nous contrast 05/25/2021 12:[address] CHEST W/O CONTRAST 07/27/2021 12:00 AM URINALYSIS ROUTINE C&S IF IND 10/15/2021 12:00 AM Occult blood stool 3 specimen home kit 10/21/2021 12 :00 AM CMP 10/26/2021 12:00 AM CBC W/ AUTO DIFF (RFLX MAN DIFF IF IND). 10/26/2021 12:00 AM BNP 10/26/2021 12:00 AM Magnesium level 10/26/2021 12:00 AM ECHO 2D Complete - Adult 10/26/2021 12:00 AM Medications Active Name Start Date Estimated Completion Date SIG Co mments atorvastatin 20 mg oral tablet t lavern 1 tablet (20 mg) by oral route once daily Aspirin Low Dose 81 mg oral tablet,delayed release (DR/EC) Eliquis 5 mg oral tablet take 1 tablet (5 mg) by oral route 2 times per day ipratropium-albuterol 0.5 mg-3 mg(2.5 mg base)/3 mL inhalation solution for nebulization 01/09/2020 inhale 3 milliliters by nebulization route 4 times per day and as needed, up to 6 doses per day for COPD J44.9 sotalol 120 mg oral tablet take 1 tablet (120 mg) by oral route 2 times per day Ipratropium-Albuterol 0.5-2.5 (3) M 03/19/2020 1 ampule in nebulizer 4 times daily as needed up to 6 does per day Dx:J44.9 ibuprofen 200 mg oral tablet candy e 1 tablet (200 mg) by oral route every 6 hours as needed with food multivitamin oral tablet take 1 tablet by oral route daily Adempas 1 mg oral tablet 11/10/2020 take 1 tablet (1 mg) by oral route 3 times per day doses about 6 to 8 hours apart Opsumit 10 mg oral tablet 11/10/2020 take 1 tablet (10 mg) by oral route once daily Tyvaso Starter Kit 1.74 mg/2.9 mL inhalation solution for nebulization 11/10/2020 3 breaths QID. Increase by 3 breaths at 1 week intervals to target dose of 9 breaths QID. diltiazem HCl 120 mg oral capsule,extended release 12 hr take 1 capsule (120 mg) by oral route 2 times per day Epidiolex 100 mg/mL oral solution take 2.5 mg/kg by oral route 2 times per day metolazone 5 mg oral tablet take 1 tablet (5 mg) by oral route once daily mycophenolate mofetil 500 mg oral tablet 05/21/2021 3 take 2 tablets (1,000 mg) by oral route 2 times per day for 30 days magnesium 400 mg (as magnesium oxide) tablet 06/09/202105/16 take 1 tablet by oral route 2 times a day for 30 days Klor-Con M20 mEq tablet,extended release 09/23/2021 3 take 1 tablet (20 meq) by oral route 3 times per day with food. Patient to take a extra tab on M, W, F tadalafil 20 mg tablet 09/24/2021 09/19/2022 take 2 ta blet by oral route daily for 90 days Anoro Ellipta 62.5-25 MCG/INH Inhalation Aerosol Powde r Breath Activated 10/15/2021 04/13/2022 INHALE 1 PUFF BY MOUTH ONCE DAILY AT THE SAME TIME EACH DAY Aldactone 50 mg tablet 03/12/2022 take 1 ta blet (50 mg) by oral route once daily Name Start Date Expiration Date SIG Comments [...] route every 12 hours for 5 days hydrochlorothiazide 25 mg oral tablet take 1 tablet (25 mg) by oral route once daily levofloxacin 750 mg oral tablet 01/12/2020 01/19/2020 take 1 tablet (750 mg) by oral route once daily for 7 days Anoro Ellipta 62.5-25 mcg/actuation inhalation blister with device 10/13/2020 10/08/2021 inhale 1 puff by inhalation route once d aily at the same time each day for 90 days bumetanide 1 mg oral tablet 02/23/2021 02/18/2022 take 1 tablet (1 mg) by oral route 2 times per day for 30 days doxycycline hyclate 100 mg tablet 01/13/2022 01/23/2022 take 1 tablet (100 mg) by oral route 2 times per day for 10 days Discontinued Name Start Date Discontinued Date SIG Comments ibuprofen 200 mg oral tablet 02/21/2020 candy e 1 tablet (200 mg) by oral route every 6 hours as needed with food clopidogrel 75 mg oral tablet 10/19/2019 ta ke 1 tablet (75 mg) by oral route once daily lisinopril 40 mg oral tablet 05/12/2020 candy e 1 tablet (40 mg) by oral route once daily ranitidine HCl 150 mg oral capsule 10/19/2019 take 1 capsule (150 mg) by oral route 2 times per day Co Q-10 200 mg oral capsule 01/29/2021 take 1 capsul e by oral route daily aspirin 325 mg oral tablet 04/19/2019 take [...] by oral route once daily as needed amlodipine 10 mg oral tablet 11/07/2019 candy e 1 tablet (10 mg) by oral route once daily niacin 500 mg oral tablet extended release 2020 take 1 tablet (500 mg) by oral route once daily Tessalon Perles 100 mg oral capsule 04/25/2019 09/14/2019 take 2 capsules (200 mg) by oral route 3 times per day as needed for cough amiodarone 200 mg oral tablet 11/07/2019 Protonix 40 mg oral tablet,delayed release (DR/EC) albuterol sulfate 90 mcg/actuation inhalation HFA aerosol inhale r 01/29/2021 carvedilol 25 mg oral tablet 11/07/2019 02/21/2020 candy e 1 tablet (25 mg) by oral route 2 times per day with food sotalol 80 mg oral tablet 02/21/2020 take 1 tablet (80 mg) by oral route 2 times per day Dosage change potassium chloride 20 mEq oral tablet extended release 01/29/2021 take 1 tablet (20 meq) by oral route once daily with food prednisone 20 mg oral tablet 11/22/2019 02/21/2020 take 60mg on ce daily Dosage change Adcirca 20 mg oral tablet 11/10/2020 11/10/2020 take 2 tablets (40 mg) by oral route once daily for 30 days prednisone 20 mg oral tablet 01/28/2021 01/29/2021 Take 2 tabs daily x 5 days Lasix 40 mg oral tablet 01/30/2021 02/23/2021 take 1 t ablet (40 mg) by oral route 2 times per day Problem List Description Status Onset Cancer Active Heart disease Active Hyperlipidemia Active Hypertension Active Stroke Active CAD (coronary artery disease) Active 09/19/2019 Mitral valve regurgitation Active 09/19/2019 Atrial fibrillation, currently in sinus rhythm Active 09/19/2019 Vital Signs Date Time BP-Sys(mm[Hg] BP-Marli(mm[Hg]) HR(bpm) RR(rpm) Temp WT HT HC BMI BSA BMI Percentile O2 Sat(%) 10/26/2021 10:22:00 AM 130 mm[Hg] 76 mm[Hg] 66 {beats}/min 2 05.312 lbs 72 in 27.8451 kg/m2 2.1751 m2 94 % 08/12/2021 11:05:00 AM 99 mm[Hg] 50 mm[Hg] 50 {beats}/min 14 rpm 98.2 F 194 lbs 72 in 26.31 kg/m2 2.11 m2 97 % 07/27/2021 10:37:00 AM 112 mm[Hg] 58 mm[Hg] 48 {beats}/min 20 rpm 197.312 lbs 72 in 26.76 kg/m2 2.13 m2 97 % 05/25/2021 9:04:00 AM 130 mm[Hg] 70 mm[Hg] 50 {beats}/min 18 rpm 194.312 lbs 72 in 26.3532 kg/m2 2.116 m2 93 % 04/27/2021 1:55:00 PM 136 mm[Hg] 60 mm[Hg] 65 {beats}/min 20 rpm 19 1 lbs 72 in 25.90 kg/m2 2.10 m2 92 % 03/30/2021 8:50:00 AM 118 mm[Hg] 60 mm[Hg] 56 {beats}/min 202 l bs 72 in 27.3958 kg/m2 2.1575 m2 89 % 02/23/2021 11:28:00 AM 140 mm[Hg] 70 mm[Hg] 63 {beats}/min 20 rpm 202 lbs 72 in 27.40 kg/m2 2.16 m2 95 % 01/28/2021 10:50:00 PM 88 % 01/28/2021 10:32:00 AM 132 mm[Hg] 84 mm[Hg] 61 {beats}/min 16 rpm 98.4 F 215.5 lbs 80 % 09/22/2020 11:10:00 AM 152 mm[Hg] 88 mm[Hg] 57 {beats}/min 18 rpm 22 7 lbs 72 in 30.7864 kg/m2 2.2871 m2 92 % 06/23/2020 3:45:00 PM 132 mm[Hg] 72 mm[Hg] 81 {beats}/min 20 rpm 99 F 235 lbs 72 in 31.87 kg/m2 2.33 m2 80 % 05/12/2020 3:45:00 PM 134 mm[Hg] 70 mm[Hg] 77 {beats}/min 20 rpm 97.7 F 72 in 95 % 03/20/2020 10:35:00 AM 140 mm[Hg] 70 mm[Hg] 64 {beats}/min 97.1 F 271 lbs 92 % 03/05/2020 10:35:00 AM 112 mm[Hg] 74 mm[Hg] 66 {beats}/min 16 rpm 97.5 F 226 lbs 72 in 30.6508 kg/m2 2.282 m2 90 % 02/21/2020 1:49:00 PM 140 mm[Hg] 72 mm[Hg] 77 {beats}/min 18 rpm 223 lbs 72 in 30.24 kg/m2 2.27 m2 94 % 01/14/2020 10:05:00 AM 122 mm[Hg] 76 mm[Hg] 77 {beats}/min 16 rpm 98.4 F 72 in 97 % 12/20/2019 2:27:00 PM 138 mm[Hg] 78 mm[Hg] 86 {beats}/min 97.2 F 220 lbs 96 % 12/12/2019 9:28:00 AM 136 mm[Hg] 80 mm[Hg] 63 {beats}/min 16 rpm 98.1 F 214 lbs 89 % 11/22/2019 11:06:00 AM 126 mm[Hg] 82 mm[Hg] 60 {beats}/min 12 rpm 220 lbs 72 in 29.8371 kg/m2 2.2515 m2 94 % 11/07/2019 9:45:00 AM 102 mm[Hg] 66 mm[Hg] 89 {beats}/min 16 rpm 98.2 F 221 lbs 72 in 29.97 kg/m2 2.26 m2 85 % 10/19/2019 11:23:00 AM 92 mm[Hg] 50 mm[Hg] 10/19/2019 11:02:00 AM 88 mm[Hg] 58 mm[Hg] 75 {beats}/min 24 rpm 97.3 F 228.25 lbs 85 % 09/14/2019 10:11:00 AM 142 mm[Hg] 84 mm[Hg] 54 {beats}/min 20 rpm 98.1 F 238.625 lbs 96 % 04/19/2019 10:41:00 AM 110 mm[Hg] 72 mm[Hg] [...] % Social History Name Description Comments Tobacco Former smoker Alcohol History of Procedures Date Ordered Description Order Status 06/23/2015 12:00 AM ROUTINE VENIPUNCTURE Reviewed 10/04/2017 12:00 AM COLLECTION VENOUS BLOOD VENIPUNCTURE Rev iewed 12/18/2012 12:00 AM ROUTINE VENIPUNCTURE Reviewed 12/18/2012 12:00 AM LIPID PANEL Reviewed 12/18/2012 12:00 AM HEPATIC FUNCTION PANEL Reviewed 09/19/2019 12:00 AM PULMONARY COMPLIANCE STUDY Returned 11/07/2019 12:00 AM COMPLETE CBC W/AUTO DIFF WBC Returned 11/07/2019 12:00 AM COMPREHEN METABOLIC PANEL Returned 12/12/2019 12:00 AM [facility] MEDICARE - flu vaccine administratio n Reviewed 12/12/2019 12:00 AM INFLUENZA VAC 4 VALENT PRSRV FREE 3 YRS PLUS IM Reviewed 12/12/2019 12:00 AM COLLECTION VENOUS BLOOD VENIPUNCTURE Rev iewed 12/12/2019 12:00 AM METABOLIC PANEL TOTAL CA Returned 12/20/2019 12:[address] THORAX W/O DYE Reviewed 02/19/2020 12:00 AM BREATHING CAPACITY TEST Returned 01/14/2020 12:00 AM COMPLETE CBC W/AUTO DIFF WBC Returned 01/14/2020 12:00 AM COMPREHEN METABOLIC PANEL Returned 01/14/2020 12:00 AM ZC CHEST 2 VIEW Returned 01/14/2020 12:00 AM COVID-19 Testing Returned 02/27/2020 12:00 AM Moderna Covid-19 Vaccine Reviewed 02/21/2020 12:[address] THORAX W/O DYE Returned 03/27/2020 12:00 AM Moderna Covid-19 Vaccine Reviewed 04/17/2020 12:00 AM CHEST X-RAY 2VW FRONTAL&LATL Returned 05/12/2020 12:00 AM COMPLETE CBC W/AUTO DIFF WBC Returned 05/12/2020 12:00 AM COMPREHEN METABOLIC PANEL Returned 05/26/2020 12:00 AM COMPLETE CBC W/AUTO DIFF WBC Returned 05/26/2020 12:00 AM COMPREHEN METABOLIC PANEL Returned 06/09/2020 12:00 AM COMPLETE CBC W/AUTO DIFF WBC Reviewed 06/09/2020 12:00 AM COMPREHEN METABOLIC PANEL Reviewed 08/23/2020 12:00 AM CHEST X-RAY 2VW FRONTAL&LATL Reviewed 07/15/2020 12:00 AM COMPLETE CBC W/AUTO DIFF WBC Reviewed 07/15/2020 12:00 AM COMPREHEN METABOLIC PANEL Reviewed 08/20/2020 12:00 AM BREATHING CAPACITY TEST Returned 02/22/2021 12:[address] THORAX W/O DYE Reviewed 01/28/2021 12:00 AM COMPLETE CBC W/AUTO DIFF WBC Returned 01/28/2021 12:00 AM COMPREHEN METABOLIC PANEL Returned 07/28/2021 12:00 AM TTE W/DOPPLER COMPLETE Reviewed 04/27/2021 12:00 AM METABOLIC PANEL TOTAL CA Reviewed 04/27/2021 12:00 AM ASSAY OF MAGNESIUM Reviewed 04/27/2021 12:00 AM ASSAY OF NATRIURETIC PEPTIDE Reviewed 05/12/2021 12:00 AM METABOLIC PANEL TOTAL CA Reviewed 05/12/2021 12:00 AM ASSAY OF MAGNESIUM Reviewed 05/05/2021 12:00 AM METABOLIC PANEL TOTAL CA Returned 05/11/2021 12:00 AM COLLECTION VENOUS BLOOD VENIPUNCTURE Rev iewed 05/25/2021 12:00 AM COMPLETE CBC W/AUTO DIFF WBC Reviewed 05/25/2021 12:00 AM COMPREHEN METABOLIC PANEL Reviewed 05/25/2021 12:00 AM ASSAY OF NATRIURETIC PEPTIDE Reviewed 05/25/2021 12:00 AM BREATHING CAPACITY TEST Reviewed 05/25/2021 12:00 AM 6 minute walk test Reviewed 06/05/2021 12:00 AM RENAL FUNCTION PANEL Reviewed 06/05/2021 12:00 AM ASSAY OF MAGNESIUM Reviewed 07/27/2021 12:00 AM RENAL FUNCTION PANEL Reviewed 07/27/2021 12:00 AM ASSAY OF MAGNESIUM Reviewed 08/12/2021 12:00 AM ASSAY OF MAGNESIUM Reviewed 08/12/2021 12:00 AM RENAL FUNCTION PANEL Reviewed 08/12/2021 12:00 AM COLLECTION VENOUS BLOOD VENIPUNCTURE Rev iewed 10/16/2021 12:00 AM VITAMIN B-12 Returned 10/16/2021 12:00 AM ASSAY OF FOLIC ACID SERUM Returned 10/16/2021 12:00 AM ASSAY OF IRON Returned 10/16/2021 12:00 AM IRON BINDING TEST Returned 10/16/2021 12:00 AM ASSAY OF TRANSFERRIN Returned 10/16/2021 12:00 AM ASSAY OF FERRITIN Returned 10/15/2021 12:00 AM GENERAL HEALTH PANEL Returned 10/15/2021 12:00 AM ASSAY THYROID STIM HORMONE Returned 10/15/2021 12:00 AM LIPID PANEL Returned 10/15/2021 12:00 AM ASSAY OF MAGNESIUM Returned 10/15/2021 12:00 AM Prostate Cancer Screening Returned 10/26/2021 12:00 AM 6 minute walk test Reviewed 10/26/2021 12:00 AM BREATHING CAPACITY TEST Reviewed 03/26/2014 12:00 AM ROUTINE VENIPUNCTURE Reviewed 09/26/2014 12:00 AM ROUTINE VENIPUNCTURE Reviewed Results Summary Date and Description Results 12/18/2012 2:14 PM TRIGLYCERIDES 47.0 mg/dLCHOL ESTEROL 132.0 mg/dLHDL 62.0 mg/dLTOT CHOL/HDL 2.1 LDL (CALC) 61.0 mg/dLSGOT/AST 21.0 IU/LSGPT/ALT 23.0 IU/LALK PHOS 49.0 IU/LTOTAL PROTEIN 6.80 g/dLALBUMIN 4.30 g/dLTOTAL BILI 1.0 mg/dLDIRECT BILI 0.50 mg/dLINDIRECT BILI 0.50 mg/dL 06/20/2020 2:05 PM GLUCOSE 202 SODIUM 141 POTAS SIUM 3.7 CHLORIDE 97.0 mmol/LCO2 30 BUN 12.0 mg/dLCREATININE 0.60 mg/dLSGOT/AST 25 SGPT/ALT 20 ALK PHOS 42 TOTAL PROTEIN 6.2 ALBUMIN 4.1 TOTAL BILI 1.0 CALCIUM 9.10 mg/dLAGE 75 GFR NonAA 132 GFR AA 160 eGFR 132 mL/min/1.73meGFR AA* >60 mL/min/1.73mWBC 13.0 RBC 5.36 HGB 10.80 g/dLHCT 39.10 %MCV 73.0 fLMCH 20.10 pgMCHC 27.60 g/dLRDW SD 54 %RDW CV 21.80 %MPV 11.0 fLPLT 339 x10E3/uLNRBC# 0.00 NRBC% 0.0 %NEUT 87.5 %LYMP 7.2 %MONO 3.2 %EOS 0.5 %BASO 0.8 #NEUT 11.36 #LYMP 0.93 #MONO 0.42 #EOS 0.07 #BASO 0.11 MANUAL DIFF SEE BELOW SEGS 85 BANDS 1 LYMPHS 8 MONOS 4 EOS 1 BASO 1.0 %MICRO OVALOCYTES 1+ ANISO 1+ HYPO 1+ 09/01/2020 2:14 PM GLUCOSE 112 SODIUM 143 POTAS SIUM 3.5 CHLORIDE 102.0 mmol/LCO2 33 BUN 9.0 mg/dLCREATININE 0.70 mg/dLSGOT/AST 23 SGPT/ALT 13 ALK PHOS 47 TOTAL PROTEIN 7.1 ALBUMIN 4.3 TOTAL BILI 1.5 CALCIUM 9.10 mg/dLAGE 75 GFR NonAA 111 GFR AA 135 eGFR 111 mL/min/1.73meGFR AA* >60 mL/min/1.73mWBC 10.0 RBC 6.08 HGB 11.50 g/dLHCT 41.80 %MCV 69.0 fLMCH 18.90 pgMCHC 27.50 g/dLRDW SD 48 %RDW CV 21.30 %PLT 364 x10E3/uLNRBC# 0.00 NRBC% 0.0 %NEUT 66.3 %LYMP 15.2 %MONO 12.5 %EOS 3.7 %BASO 1.9 #NEUT 6.66 #LYMP 1.53 #MONO 1.25 #EOS 0.37 #BASO 0.19 MANUAL DIFF NOT IND 04/27/2021 3:05 PM MAGNESIUM 1.8 GLUCOSE 96 SOD IUM 138 POTASSIUM 2.6 CHLORIDE 89.0 mmol/LCO2 39 BUN 14.0 mg/dLCREATININE 0.80 mg/dLCALCIUM 9.90 mg/dLAGE 75 GFR NonAA 95 GFR AA 115 eGFR 95 mL/min/1.73meGFR AA* >60 mL/min/1.73mPRO BNP 767 05/11/2021 9:23 AM GLUCOSE 107 SODIUM 140 POTAS SIUM 4.0 CHLORIDE 100.0 mmol/LCO2 34 BUN 11.0 mg/dLCREATININE 0.70 mg/dLCALCIUM 8.90 mg/dLAGE 75 GFR NonAA 111 GFR AA 135 eGFR 111 mL/min/1.73meGFR AA* >60 mL/min/1.73mMAGNESIUM 2.3 05/25/2021 9:00 AM GLUCOSE 121 SODIUM 138 POTAS SIUM 2.9 CHLORIDE 94.0 mmol/LCO2 38 BUN 13.0 mg/dLCREATININE 0.70 mg/dLSGOT/AST 24 SGPT/ALT 13 ALK PHOS 46 TOTAL PROTEIN 6.1 ALBUMIN 3.9 TOTAL BILI 0.5 CALCIUM 10.20 mg/dLAGE 76 GFR NonAA 110 GFR AA 133 eGFR 110 mL/min/1.73meGFR AA* >60 mL/min/1.73mPRO BNP 855 WBC 7.9 RBC 5.17 HGB 11.30 g/dLHCT 37.40 %MCV 72.0 fLMCH 21.90 pgMCHC 30.20 g/dLRDW SD 50 %RDW CV 20.0 %PLT 263 x10E3/uLNRBC# 0.00 NRBC% 0.0 %NEUT 72.7 %LYMP 13.3 %MONO 8.8 %EOS 3.8 %BASO 1.0 #NEUT 5.72 #LYMP 1.05 #MONO 0.69 #EOS 0.30 #BASO 0.08 MANUAL DIFF SEE BELOW SEGS 68 BANDS 11 LYMPHS 11 MONOS 10 EOS 2 RBC MORPH 2+ ANISO 06/05/2021 8:55 AM MAGNESIUM 1.9 GLUCOSE 115 SO DIUM 139 POTASSIUM 3.1 CHLORIDE 94.0 mmol/LCO2 36 BUN 13.0 mg/dLCREATININE 0.70 mg/dLALBUMIN 4.2 CALCIUM 10.0 mg/dLPHOSPHORUS 4.0 AGE 76 GFR NonAA 110 GFR AA 133 eGFR 110 mL/min/1.73meGFR AA* >60 mL/min/1.73m 07/27/2021 11:30 AM MAGNESIUM 1.9 GLUCOSE 105 SO DIUM 138 POTASSIUM 3.7 CHLORIDE 97.0 mmol/LCO2 36 BUN 11.0 mg/dLCREATININE 0.70 mg/dLALBUMIN 4.2 CALCIUM 9.0 mg/dLPHOSPHORUS 3.8 AGE 76 GFR NonAA 110 GFR AA 133 eGFR 110 mL/min/1.73meGFR AA* >60 mL/min/1.73m 08/12/2021 11:45 AM GLUCOSE 90 SODIUM 134 POTASS IUM 4.0 CHLORIDE 93.0 mmol/LCO2 33 BUN 16.0 mg/dLCREATININE 0.90 mg/dLALBUMIN 4.3 CALCIUM 9.60 mg/dLPHOSPHORUS 4.3 AGE 76 GFR NonAA 82 GFR AA 99 eGFR 82 mL/min/1.73meGFR AA* >60 mL/min/1.73mMAGNESIUM 2.0 History Of Immunizations Name Date Admin Mfg Name Mfg Code Trade Name Lot# Route Inj Vis Given Vis Pub CVX Influenza 12/12/2019 [employer] [place] [employer] [place] [id number] Flulava l quadrivalent [id number] Intramuscular Left Deltoid 12/12/2019 09/28/2018 158 Covid-19 Monovalent 02/27/2020 Moderna [employer] MOD Moderna CO VID-19 Vaccine [id number] Intramuscular Left Deltoid 02/27/2020 01/15/2020 221 Covid-19 Monovalent 03/27/2020 Moderna [employer] MOD Moderna CO VID-19 Vaccine [id number] Intramuscular Left Deltoid 03/27/2020 01/15/2020 221 History of Past Illness Name Date of Onset Comments Cancer skin Heart disease Hyperlipidemia Hypertension Stroke CAD (coronary artery disease) Left heart Cath 08/28: LMA: mild to moderate disease, LAD moderate disease, LCA, mild to moderate disease, RAC occluded proximally, vein graft to RCA is patent, vein graft to the obtuse marginal bran ch is known to be occluded A-fib COPD CAD (coronary artery disease) 09/19/2019 Multi-vess el disease. See Heart cath report. Mitral valve regurgitation 09/19/2019 Noted to be s evere on heart cath report, continues to follow with cardiology. Atrial fibrillation, currently in sinus rhythm 09/19/2019 Cancer Nov 02 2012 8:45AM Heart Disease [...] COVID-19 ruled out Aug 27 2019 8:05AM Hypoxia Sep 14 2019 10:26AM COPD (chronic obstructive pulmonary disease) Sep 14 2019 10: 26AM CAD (coronary artery disease) Sep 14 2019 10:26AM Mitral valve regurgitation Sep 14 2019 10:26AM Hyperlipidemia Sep 14 2019 10:26AM Hypertension Sep 14 2019 10:26AM Atrial fibrillation, currently in sinus rhythm Sep 14 2019 1 0:26AM Dyspnea Oct 19 2019 11:12AM Hypotension Oct 19 2019 11:12AM CAD (coronary artery disease) Oct 19 2019 11:12AM COPD (chronic obstructive pulmonary disease) Oct 19 2019 11: 12AM Fatigue Nov 07 2019 9:47AM Dyspnea Nov 07 2019 9:47AM CAD (coronary artery disease) Nov 07 2019 9:47AM COPD (chronic obstructive pulmonary disease) Nov 07 2019 9: 47AM ILD (interstitial lung disease) Nov 22 2019 11:10AM COPD (chronic obstructive pulmonary disease) Nov 22 2019 11: 10AM Chronic respiratory failure with hypoxia Nov 22 2019 11:10AM Poisoning by other antidysrhythmic drugs , accidental (unintentional), initial encounter Nov 22 2019 11:10AM Flu Vaccine Dec 12 2019 10:59AM COPD (chronic obstructive pulmonary disease) Dec 12 2019 9: 31AM Atrial fibrillation, currently in sinus rhythm Dec 12 2019 9:31AM Hyperlipidemia Dec 12 2019 9:31AM Hypertension Dec 12 2019 9:31AM Interstitial lung disease Dec 20 2019 3:24PM COPD exacerbation Jan 14 2020 10:08AM Dyspnea Jan 14 2020 10:08AM Fatigue Jan 14 2020 10:08AM Interstitial lung disease Feb 21 2020 2:05PM Encounter for administration of COVID-19 vaccine Feb 27 2020 5:51PM COPD exacerbation Mar 05 2020 10:37AM Dyspnea Mar 05 2020 10:37AM Fatigue Mar 05 2020 10:37AM Edema Mar 05 2020 10:37AM Shortness of breath Mar 20 2020 10:42AM Encounter for administration of COVID-19 vaccine Mar 27 2020 12:40PM Interstitial lung disease May 12 2020 3:45PM High risk medication use May 12 2020 3:45PM Interstitial lung disease Jun 23 2020 4:08PM Interstitial lung disease Aug 20 2020 8:26PM Interstitial lung disease Sep 22 2020 12:39PM PAH (pulmonary artery hypertension) Nov 10 2020 8:37AM PAH (pulmonary artery hypertension) Nov 10 2020 5:28PM Shortness of breath Jan 28 2021 10:42AM Pulmonary hypertension Jan 30 2021 12:48PM Pulmonary hypertension Jan 28 2021 10:42AM COPD (chronic obstructive pulmonary disease) Jan 28 2021 10: 42AM Hypoxia Jan 28 2021 10:42AM Pulmonary hypertension Feb 23 2021 12:53PM ILD (interstitial lung disease) Mar 31 2021 7:22AM Respiratory failure Mar 31 2021 7:22AM Pulmonary arterial hypertension Apr 17 2021 9:28AM ILD (interstitial lung disease) Apr 17 2021 9:28AM Shortness of breath Apr 27 2021 2:45PM High risk medication use Apr 27 2021 2:45PM Shortness of breath May 01 2021 10:16AM Pulmonary hypertension May 05 2021 1:50PM Pulmonary arterial hypertension May 05 2021 4:29PM Pulmonary arterial hypertension May 07 2021 1:36PM Pulmonary arterial hypertension May 11 2021 10:14AM High risk medication use May 25 2021 8:37AM Interstitial lung disease May 25 2021 8:37AM High risk medication use Jun 04 2021 10:17AM Pulmonary arterial hypertension Jun 23 2021 9:41AM Pulmonary nodule Jul 27 2021 11:16AM High risk medication use Jul 27 2021 11:16AM High risk medication use Aug 12 2021 11:10AM Bursitis of right elbow, unspecified bursa Aug 12 2021 11:10 AM Pulmonary hypertension Sep 23 2021 4:11PM Heart disease Oct 15 2021 8:13AM Hyperlipidemia Oct 15 2021 8:13AM Hypertension Oct 15 2021 8:13AM Screening for prostate cancer Oct 15 2021 8:13AM Anemia Oct 16 2021 2:21PM Anemia Oct 21 2021 8:49AM High risk medication use Oct 26 2021 11:03AM Interstitial lung disease Oct 26 2021 11:03AM Pulmonary nodule Oct 26 2021 11:03AM Payers Insurance Name Company Name Plan Name Plan Number Policy Number Alberto cy Group Number Start Date Medicare RHC Medicare RHC [id number] N/ A [id number] 2012 Medicare Part A Medicare - Lab [id number] October Medicare RHC Medicare RHC [id number] TueMay 15, 2012 Medicare RHC Medicare RHC [id number] May 15, 2012 Medicare Part B Medicare Of [place] [id number] N/A Medicare Part A Medicare Part A [id number] October History of Encounters Visit Date Visit Type Provider 10/26/[address] José Luis Aranda DO 10/15/2021 Laboratory Natali RICHARDS RN 08/12/2021 Office visit Natali RICHARDS RN 07/27/[address] José Luis Aranda DO 05/25/[address] José Luis Aranda DO 05/11/2021 Laboratory Natali RICHARDS RN 04/27/[address] José Luis Aranda DO 03/30/[address] José Luis Aranda DO 02/23/[address] José Luis Aranda DO 01/28/2021 Office visit Natali RICHARDS RN 09/22/[address] José Luis Aranda DO 06/23/[address] José Luis Aranda DO 05/12/2020 Voided Verna RICHARDS RN 05/12/[address] José Luis Aranda DO 03/27/[address] Clemente Rae MD 03/20/[address] José Luis Aranda DO 03/05/2020 Office visit Natali RICHARDS RN 02/29/2020 [facility] Robbie Turner MD 02/27/[address] Clemente Rae MD 02/21/[address] Jos éLuis Aranda DO 01/14/2020 Office visit Natali RICHARDS RN 12/20/[address] José Luis Aranda DO 12/12/2019 Office visit Natali RICHARDS RN 11/22/[address] José Luis Aranda DO 11/07/2019 Office visit Natali RICHARDS RN 10/20/2019 Hospital Neema Manjarrez MD 10/19/2019 Office visit Natali RICHARDS RN 09/14/2019 Office visit Natali RICHARDS RN 08/27/2019 Laboratory Cele Michel MA 04/19/2019 Office visit Natali RICHARDS RN 09/22/2017 Laboratory Neema NOBLES 10/04/2016 Office visit LUCIA PICKARD [employer] 06/08/2016 Office visit Neema NOBLES 04/03/2015 Laboratory LUCIA [employer] 09/26/2014 Laboratory LUCIA P[employer]ARD [employer] F[employer]ER 03/26/2014 Laboratory LUCIA P[employer]ARD [employer] F[employer]ER 02/13/2014 Office visit LUCIA PICKARD [employer] F[employer]ER 12/18/2012 Laboratory LUCIA P[employer]ARD [employer] F[employer]ER 11/02/2012 Office visit LUCIA PICKARD [employer]ER
--- OUTSIDE RECORDS SUMMARY | 2022-05-03 08:05 | XMS REPORT | Encounter Summary ---
Author Author [facility] Organization [facility] Address Unknown Phone Unavailable Care Team Providers Care Medical Accounting Clerk Name Role Phone Natali Workman PUBLIC SAFETY DIRECTOR PCP [phone] Encounter Details Care Team Description Date Type Department 04/19/2022 Hospital Cardiovascular [facility] cine Encounter Remote Device Check [phone] Social History Date Tobacco Use Types Packs/Day [...] t placement of REMOTE ILR 12:48 PM ELECTRICAL PROSPECTING OPERATOR implantable loop re star documented in this encounter Results * DEVICE EVALUATION - REMOTE ILR NO CHARGES (04/19/2022 12:48 PM ELECTRICAL PROSPECTING OPERATOR) Pathologist Signature Component Value Ref Test Method Analysis Performed A t Range Time Device Type ILR MURJ Generator Medtronic MURJ Service Girl Generator Model # [id number] MURJ Generator Serial # [id number] MURJ Generator Implnat [id number] MURJ Date Pacemaker Dependant no MURJ On Anticoagulation yes MURJ EP SYSTEM MRI yes MURJ CONDITIONAL Modality Anatomical Region Laterality MAC CV Heart Rhythm Anatomical Location / Laterality Collection Method / Volume Ari ection Time Received Time Specimen (Source) 04/19/2022 12:05 AM ELECTRICAL PROSPECTING OPERATOR Narrative 04/19/2022 7:16 PM ELECTRICAL PROSPECTING OPERATOR Title: Normal Sinus Rhythm * Stored EGMs are consistent with or suggestive of Normal Sinus Rhythm with ectopy Title: Normal Sinus Rhythm * Stored EGMs are consistent with or suggestive of Normal Sinus Rhythm Title: Sinus Arrhythmia * Stored EGMs are consistent with or suggestive of Sinus Arrhythmia with ectopy * AT [place]: 0.07% * Total number of episodes: 1 [...] encounter Care Teams Start Date End Date Medical Accounting Clerk Relationship Specialty 07/24/20 Natali Workman, PCP - General Nurse PUBLIC SAFETY DIRECTOR Practitioner [address] [place], [place] [address] documented as of this encounter
--- OUTSIDE RECORDS SUMMARY | 2022-05-03 08:05 | XMS REPORT ---
Author Shiva Baer Organization [facility] Address [address] [place], [place] [address] Care Team Providers Care Parcel Carrier Name Role Phone José Luis Aranda PCP [...] CVX Influenza 12/12/2019 [employer] [place] or [place] BCQ Flulava l quadrivalent [id number] Intramuscular Left Deltoid 12/12/2019 09/28/2018 158 Covid-19 Monovalent 02/27/2020 [employer] MOD Moderna CO VID-19 Vaccine [id number] Intramuscular Left Deltoid 02/27/2020 01/15/2020 221 Covid-19 Monovalent 03/27/2020 [employer] MOD Moderna CO VID-19 Vaccine [id number] Intramuscular Left Deltoid 03/27/2020 01/15/2020 221 History [...] Number Start Date Medicare RHC Medicare RHC [id number] N/ [id number] 2012 Medicare Part A Medicare - Lab [id number] October Medicare RHC Medicare RHC [id number] TueMay 15, 2012 Medicare RHC Medicare RHC [id number] May 15, 2012 Medicare Part B Medicare Of [place] [id number] N/A Medicare Part A Medicare Part A [id number] October History of Encounters Visit Date Visit [...] 03/05/2020 Office visit Natali RICHARDS RN 02/29/2020 [facility] Robbie Turner MD 02/27/[address] Clemente Rae MD 02/21/[address] José Luis Aranda DO 01/14/2020 Office visit Natali RICHARDS [...] visit Natali RICHARDS RN 09/22/2017 Laboratory Neema NBOLES 10/04/2016 Office visit LUCIA PICKARD BITE BLOCK MAKER 06/08/2016 Office visit Neema NOBLES 04/03/2015 Laboratory LUCIA PICKARD BITE BLOCK MAKER 09/26/2014 Laboratory LUCIA PICKARD BITE BLOCK MAKER 03/26/2014 Laboratory LUCIA PICKARD BITE BLOCK MAKER 02/13/2014 Office visit LUCIA PICKARD BITE BLOCK MAKER 12/18/2012 Laboratory LUCIA PICKARD BITE BLOCK MAKER 11/02/2012 Office visit LUCIA PICKARD BITE BLOCK MAKER
--- OUTSIDE RECORDS SUMMARY | 2022-05-03 08:05 | XMS REPORT | Encounter Summary ---
Author Author [facility] Organization [facility] Address Unknown Phone Unavailable Care Team Providers Care Staff Development Manager Name Role Phone Natali Workman SIGN LANGUAGE TEACHER PCP [phone] Encounter Details Care Team Description Date Type Department 03/17/2022 Hospital Cardiovascular [facility] cine Encounter Remote Device Check [phone] Social History Date Tobacco Use Types Packs/Day [...] Associated Diag nosis DEVICE EVALUATION - Routine 03/17/2022 Status pos t placement of REMOTE ILR 1:40 PM MARINE MECHANIC implantable loop re star documented in this encounter Results * DEVICE EVALUATION - REMOTE ILR NO CHARGES (03/17/2022 1:40 PM MARINE MECHANIC) Pathologist Signature Component Value Ref Test Method Analysis Performed A t Range Time Device Type ILR MURJ Generator Medtronic MURJ Sand Mixer Operator Generator Model # LNQ11 MURJ Generator Serial # [id number] MURJ Generator Implnat [id number] MURJ Date Pacemaker Dependant no MURJ On Anticoagulation yes MURJ EP SYSTEM MRI yes MURJ CONDITIONAL Modality Anatomical Region Laterality MAC CV Heart Rhythm Anatomical Location / Laterality Collection Method / Volume Ari ection Time Received Time Specimen (Source) 03/17/2022 12:05 AM MARINE MECHANIC Narrative 03/23/2022 12:22 PM MARINE MECHANIC Title: Tachycardia: AF * Stored EGMs are [...] or suggestive of Sinus Arrhythmia * AT [place]: 0.11% * Total number of episodes: 1 [...] encounter Care Teams Start Date End Date Staff Development Manager Relationship Specialty 07/24/20 Natali Workman, PCP - General Nurse SIGN LANGUAGE TEACHER Practitioner [address] [place] [address] documented as of this encounter
--- OUTSIDE RECORDS SUMMARY | 2022-05-03 08:05 | XMS REPORT | Encounter Summary ---
Author Author [facility] Organization [facility] Address Unknown Phone Unavailable Care Team Providers Care Glove Factory Sewer Name Role Phone Natali Workman IT SOFTWARE ENGINEER PCP [phone] Reason for Visit * Reason Onset Date Comments Implantable Loop 04/22/2022 AF Recorder-Abnormal Results(Rhythm) Encounter Details Care Team Description Date Type Department Janis Acevedo RN Implantable Loop Recorder-Abnormal Resul ts(Rhythm) (AF) 04/22/2022 Telephone Cardiology: [facility] [address] [place] [address], [address] [place] [address] Social History Date Tobacco Use [...] encounter Miscellaneous Notes * Telephone Encounter - Janis Acevedo RN - 04/22/2022 8:00 AM CST Pt continues to have AF. Per chart, pt is to be contacting local cardiology offi ce, Dr. Cooper to set up tikosyn admit that had prev been cancelled. RITIES COUNSELOR * Telephone Encounter - Janis Acevedo, [place] - 04/22/2022 7:59 AM CST ----- Message from Zoila Peng sent at 04/22/2022 7:42 AM SECURITIES COUNSELOR ----- Regarding: MPE LINQ AF event see PDF RITIES COUNSELOR documented in this encounter Plan of Treatment Not on filedocumented as of this encounter Visit Diagnoses Not on filedocumented in this encounter Additional Health Concerns Noted Time Assessment 10/22/2020 8:34 AM CDT A fall risk assessment has been complet ed for the patient documented as of this encounter Care Teams Start Date End Date Glove Factory Sewer Relationship Specialty 07/24/20 Natali Workman, PCP - General Nurse IT SOFTWARE ENGINEER Practitioner [address] [place], [place] [id number] documented as of this encounter
--- OUTSIDE RECORDS SUMMARY | 2022-05-03 08:05 | XMS REPORT | Encounter Summary ---
Author Author [facility] Organization [facility] Address Unknown Phone Unavailable Care Team Providers Care Rock Loader Name Role Phone Natali Workman GANG PUNCH OPERATOR PCP [phone] Encounter Details Care Team Description Date Type Department 03/29/2022 Hospital Cardiovascular [facility] cine Encounter Remote Device Check [phone] Social History Date Tobacco Use Types Packs/Day [...] Associated Diag nosis DEVICE EVALUATION - Routine 04/10/2022 Status pos t placement of REMOTE ILR CHARGES 11:57 AM ENGINEERING GEOLOGIST implantable loop r ecorder documented in this encounter Results * DEVICE EVALUATION - REMOTE ILR CHARGES (04/10/2022 11:57 AM ENGINEERING GEOLOGIST) Pathologist Signature Component Value Ref Test Method Analysis Performed A t Range Time Device Type ILR MURJ Generator Medtronic MURJ Coastal Tug Mate Generator Model # [id number] MURJ Generator Serial # [id number] MURJ Generator Implnat [id number] MURJ Date Pacemaker Dependant no MURJ On Anticoagulation yes MURJ EP SYSTEM MRI yes MURJ CONDITIONAL Modality Anatomical Region Laterality MAC CV Heart Rhythm Anatomical Location / Laterality Collection Method / Volume Ari ection Time Received Time Specimen (Source) 03/29/2022 12:05 AM ENGINEERING GEOLOGIST Narrative 04/05/2022 4:34 PM ENGINEERING GEOLOGIST Title: Tachycardia: AF * Stored EGMs are [...] Fibrillation * AT burden: 97.5% Title: Alert: Asael RENTERIA RN notified of AF burden near 100% [...] encounter Care Teams Start Date End Date Rock Loader Relationship Specialty 07/24/20 Natali Workman, PCP - General Nurse GANG PUNCH OPERATOR Practitioner [address] [place] [address] documented as of this encounter
--- OUTSIDE RECORDS SUMMARY | 2022-05-03 08:05 | XMS REPORT | Encounter Summary ---
Author Author [facility] Organization [facility] Address Unknown Phone Unavailable Care Team Providers Care Lumber Carrier Name Role Phone Natali Workman EXECUTIVE ADMINISTRATIVE ASST PCP [phone] Reason for Visit * Reason Onset Date Comments Implantable Loop 03/29/2022 AF Recorder-Abnormal Results(Rhythm) Encounter Details Care Team Description Date Type Department Harman Tinajero RN Implantable Loop Recorder-Abnormal Resul ts(Rhythm) (AF) 03/29/2022 Telephone Cardiology: [facility] [address] [place] [address], [address] [place] [address] Social History Date Tobacco Use [...] encounter Miscellaneous Notes * Telephone Encounter - Florentin Lozano RN - 04/01/2022 3:25 PM CST Per MPE, plan to switch sotalol to tikosyn and DCCV on day 2 if needed. Pt to c hoose between having admission at or [facility]. Pt denies missed doses of OAC recently. RC to pt. Discussed MPE recs w/ . She requests tikosyn admit be at [facility]. P maury to send recs over to [facility] staff. Pt to CB to [facility] if they have not heard from [facility] to coordinate admission. Reviewed plan with the patient. Patient verbalized understanding and does not bates ve any further questions or concerns. No further education requested from [facility]. Patient has our contact information for future needs. OGRAPHERS' MODEL * Telephone Encounter - Harman Tinajero RN - 03/29/2022 1:53 PM CST Patient has been in AF 100% since 03/19. I spoke to patient and . No recent illness or procedures. He denies all symp toms. HR and BP stable- BP usually 120s/70s and HR 60s-80s. He is on Eliquis, di ltiazem 120 daily, sotalol 120mg bid, without missing any doses. He has had DCCV s and an ablation in the past that he later was admitted to ICU for respiratory failure. His is cautious for him to ever undergo another ablation. He is a patient of Dr. Cooper and MPE last OV note suggests that he will follow up with Rosalie Cooper. However we are still receiving ILR reports. Pt and his wanted me to review with MPE. I asked MPE for recs or if Dr. Alvarez needs to review and IL R remotes need to be transferred to him. Will follow up once JAMES replies. Last OV with JAMES 07/24/21: "Regarding Rhythm-- He is tolerating Sotalol well. His creatinine was 0.7 in May He has had approximately a 5% A. Fib burden over the last 9 months per his Med onItugo Reveal LinQ Implantable Looping Monitor Device. Previously it was 3.4% so its increase slightly but not dramatically. His device is functioning well. His device has good battery longevity. He is entirely asymptomatic and has several complex pulmonary issues. THEREFORE I did not recommend pursing a Redo A. Fib Ablation at this time. Instead, I recommended continued monitoring without any change in therapy. We discussed if his A. Fib burden significantly increases towards 20-30% then we will consider switching antiarrythmic therapy or pursing a Redo A. Fib RF Ablat ion. Therefore, again, we will not make any changes in his antiarrythmic therapy at t his time. Regarding Rate-- He remains on Diltiazem CD, metoprolol, and sotalol with reason able rate control." OGRAPHERS' MODEL * Telephone Encounter - Harman Tinajero RN - 03/29/2022 1:53 PM CST ----- Message from Zoila Peng sent at 03/29/2022 11:51 AM PHOTOGRAPHERS' MODEL ----- Regarding: MPE LINQ AF burden near 100% since ~2/3 OGRAPHERS' MODEL documented in this encounter Plan of Treatment Not on filedocumented as of this encounter Visit Diagnoses Not on filedocumented in this encounter Additional Health Concerns Noted Time Assessment 10/22/2020 8:34 AM CDT A fall risk assessment has been complet ed for the patient documented as of this encounter Care Teams Start Date End Date Lumber Carrier Relationship Specialty 07/24/20 Natali Workman, PCP - General Nurse EXECUTIVE ADMINISTRATIVE ASST Practitioner [address] [place], [place] [id number] documented as of this encounter
--- OUTSIDE RECORDS SUMMARY | 2022-05-03 08:05 | XMS REPORT | Encounter Summary ---
Author Author [facility] Organization [facility] Address Unknown Phone Unavailable Care Team Providers Care Patent Law Specialist Name Role Phone Natali Workman MEDIA RELATIONS SPECIALIST PCP [phone] Encounter Details Care Team Description Date Type Department 04/22/2022 Hospital Cardiovascular [facility] cine Encounter Remote Device Check [phone] Social History Date Tobacco Use Types Packs/Day [...] Date/Time Name Type Priority Associated Diag noses 04/22/2022 7:48 AM NETWORKING ADMINISTRATOR DEVICE EVALUATION - Device Check Routine Status pos t placement of REMOTE ILR Remote implantable loop re star documented as of this encounter Visit Diagnoses Not on filedocumented in this encounter Additional Health Concerns Noted Time Assessment 10/22/2020 8:34 AM CDT A fall risk assessment has been complet ed for the patient documented as of this encounter Care Teams Start Date End Date Patent Law Specialist Relationship Specialty 07/24/20 Natali Workman, PCP - General Nurse MEDIA RELATIONS SPECIALIST Practitioner [address] [place] [address] documented as of this encounter
--- OUTSIDE RECORDS SUMMARY | 2022-05-03 08:05 | XMS REPORT | Encounter Summary ---
Author Author [facility] Organization [facility] Address Unknown Phone Unavailable Care Team Providers Care Technical Services Manager Name Role Phone Natali Workman TARGET AIRCRAFT TECHNICIAN PCP [phone] Reason for Visit * Reason Onset Date Comments HRM - Abnormal Results 03/17/2022 (Remote Device - Abnormal Rhythms) Encounter Details Care Team Description Date Type Department Florentin Lozano RN HRM - Abnormal Results (Remote Device - Abnormal Rhythms) 03/17/2022 Telephone Cardiology: [address] [place] [address] Social History Date Tobacco Use Types Packs/Day [...] Telephone Encounter - Florentin Lozano RN - 03/17/2022 9:37 AM CST Aerted MPE to recent remote. OAC on med list. Awaiting 03/17/22 report to be uploa ded to chart. 03/08/22 report shows low AF burden. Per MPE last OV note, pt nicolas ows with Dr. Cooper. Will await MPE recs for follow up w/ pt. SPORTATION MAINTENANCE SUPERVISOR * Telephone Encounter - Florentin Lozano RN - 03/17/2022 9:32 AM CST ----- Message from Zoila Peng sent at 03/17/2022 7:45 AM TRANSPORTATION MAINTENANCE SUPERVISOR ----- Regarding: MPE LINQ AF event lasting 2 hours 10 minutes 03/16 SPORTATION MAINTENANCE SUPERVISOR documented in this encounter Plan of Treatment Not on filedocumented as of this encounter Visit Diagnoses Not on filedocumented in this encounter Additional Health Concerns Noted Time Assessment 10/22/2020 8:34 AM CDT A fall risk assessment has been complet ed for the patient documented as of this encounter Care Teams Start Date End Date Technical Services Manager Relationship Specialty 07/24/20 Natali Workman, PCP - General Nurse TARGET AIRCRAFT TECHNICIAN Practitioner [address] [place] [address] documented as of this encounter
--- OUTSIDE RECORDS SUMMARY | 2022-05-03 08:08 | XMS REPORT | Encounter Summary ---
Author Author [facility] Organization [facility] Address Unknown Phone Unavailable Care Team Providers Care Building Construction Ironworker Name Role Phone Natlai Workman CONTRACTS PARALEGAL PCP [phone] Encounter Details Care Team Description Date Type Department 04/22/2022 Hospital Cardiovascular [facility] cine Encounter Remote Device Check [phone] Social History Date Tobacco Use Types Packs/Day [...] Priority Associated Diag noses 04/22/2022 7:48 AM LEVERMAN DEVICE EVALUATION - Device Check Routine Status pos t placement of REMOTE ILR Remote implantable loop re star documented as of this encounter Visit Diagnoses Not on filedocumented in this encounter Additional Health Concerns Noted Time Assessment 10/22/2020 8:34 AM CDT A fall risk assessment has been complet ed for the patient documented as of this encounter Care Teams Start Date End Date Building Construction Ironworker Relationship Specialty 07/24/20 Natali Workman, PCP - General Nurse CONTRACTS PARALEGAL Practitioner [address] [place] [address] documented as of this encounter
--- OUTSIDE RECORDS SUMMARY | 2022-05-03 08:08 | XMS REPORT | Encounter Summary ---
Author Author [facility] Organization [facility] Address Unknown Phone Unavailable Care Team Providers Care Hadoop Java Developer Name Role Phone Natali Workman MARINE ENGINEERING TEACHER PCP [phone] Encounter Details Care Team Description Date Type Department 04/19/2022 Hospital Cardiovascular [facility] cine Encounter Remote Device Check [phone] Social History Date Tobacco Use Types Packs/Day [...] t placement of REMOTE ILR 12:48 PM BLADE OPERATOR implantable loop re star documented in this encounter Results * DEVICE EVALUATION - REMOTE ILR NO CHARGES (04/19/2022 12:48 PM BLADE OPERATOR) Pathologist Signature Component Value Ref Test Method Analysis Performed A t Range Time Device Type ILR MURJ Generator Medtronic MURJ Pastrycook Generator Model # [id number] MURJ Generator Serial # [id number] MURJ Generator Implnat [id number] MURJ Date Pacemaker Dependant no MURJ On Anticoagulation yes MURJ EP SYSTEM MRI yes MURJ CONDITIONAL Modality Anatomical Region Laterality MAC CV Heart Rhythm Anatomical Location / Laterality Collection Method / Volume Ari ection Time Received Time Specimen (Source) 04/19/2022 12:05 AM BLADE OPERATOR Narrative 04/19/2022 7:16 PM BLADE OPERATOR Title: Normal Sinus Rhythm * Stored EGMs are consistent with or suggestive of Normal Sinus Rhythm with ectopy Title: Normal Sinus Rhythm * Stored EGMs are consistent with or suggestive of Normal Sinus Rhythm Title: Sinus Arrhythmia * Stored EGMs are consistent with or suggestive of Sinus Arrhythmia with ectopy * AT [place]: 0.07% * Total number of episodes: 1 [...] encounter Care Teams Start Date End Date Hadoop Java Developer Relationship Specialty 07/24/20 Natali Workman, PCP - General Nurse MARINE ENGINEERING TEACHER Practitioner [address] [place], [place] [address] documented as of this encounter
--- OUTSIDE RECORDS SUMMARY | 2022-05-03 08:08 | XMS REPORT | Encounter Summary ---
Author Author [facility] Organization [facility] Address Unknown Phone Unavailable Care Team Providers Care Dementia Program Director Name Role Phone Natali Workman AIRCRAFT MECHANIC ELECTRICAL AND RADIO PCP Encounter Details Care Team Description Date Type Department 04/21/2022 Hospital Cardiovascular [facility] cine Encounter Remote Device Check [phone] Social History Date Tobacco Use Types Packs/Day [...] Priority Associated Diag noses 04/21/2022 8:15 AM ENAMEL BUFFER DEVICE EVALUATION - Device Check Routine Status pos t placement of REMOTE ILR Remote implantable loop re star documented as of this encounter Visit Diagnoses Not on filedocumented in this encounter Additional Health Concerns Noted Time Assessment 10/22/2020 8:34 AM CDT A fall risk assessment has been complet ed for the patient documented as of this encounter Care Teams Start Date End Date Dementia Program Director Relationship Specialty 07/24/20 Natali Workman, PCP - General Nurse AIRCRAFT MECHANIC ELECTRICAL AND RADIO Practitioner [address] [place] [address] documented as of this encounter
--- OUTSIDE RECORDS SUMMARY | 2022-05-03 08:08 | XMS REPORT | Encounter Summary ---
Author Author [facility] Organization [facility] Address Unknown Phone Unavailable Care Team Providers Care Voice Systems Engineer Name Role Phone Natali Workman SHOPFITTER PCP [phone] Encounter Details Care Team Description Date Type Department 04/20/2022 Hospital Cardiovascular [facility] cine Encounter Remote Device Check [phone] Social History Date Tobacco Use Types Packs/Day [...] Priority Associated Diag noses 04/20/2022 9:47 AM MECHANICAL REPAIR WORKER DEVICE EVALUATION - Device Check Routine Status pos t placement of REMOTE ILR Remote implantable loop re star documented as of this encounter Visit Diagnoses Not on filedocumented in this encounter Additional Health Concerns Noted Time Assessment 10/22/2020 8:34 AM CDT A fall risk assessment has been complet ed for the patient documented as of this encounter Care Teams Start Date End Date Voice Systems Engineer Relationship Specialty 07/24/20 Natali Workman, PCP - General Nurse SHOPFITTER Practitioner [address] [place] [address] documented as of this encounter
--- OUTSIDE RECORDS SUMMARY | 2022-05-03 08:08 | XMS REPORT | Encounter Summary ---
Author Author [facility] Organization [facility] Address Unknown Phone Unavailable Care Team Providers Care Educational Guidance Counselor Name Role Phone Natali Workman INDUSTRIAL GARAGE SERVICER PCP [phone] Encounter Details Care Team Description Date Type Department 04/07/2022 Hospital Cardiovascular [facility] cine Encounter Remote Device Check [phone] Social History Date Tobacco Use Types Packs/Day [...] t placement of REMOTE ILR 2:01 PM CANAL BOAT CAPTAIN implantable loop re star documented in this encounter Results * DEVICE EVALUATION - REMOTE ILR NO CHARGES (04/07/2022 2:01 PM CANAL BOAT CAPTAIN) Pathologist Signature Component Value Ref Test Method Analysis Performed A t Range Time Device Type ILR MURJ Generator Med[employer]onic MURJ Cylinder Machine Operator Generator Model # [id number] MURJ Generator Serial # [id number] MURJ Generator Implnat [id number] MURJ Date Pacemaker Dependant no MURJ On Anticoagulation yes MURJ EP SYSTEM MRI yes MURJ CONDITIONAL Modality Anatomical Region Laterality MAC CV Heart Rhythm Anatomical Location / Laterality Collection Method / Volume Ari ection Time Received Time Specimen (Source) 04/07/2022 12:50 PM CANAL BOAT CAPTAIN Narrative 04/19/2022 7:14 PM CANAL BOAT CAPTAIN Title: Tachycardia: AF * Stored EGMs are consistent with or suggestive of Atrial Fibrillation * Total episodes: 1 * AT burden: 95.83% Title: Tachycardia: AF * Stored EGMs are consistent with or suggestive of Atrial Fibrillation * Total episodes: 1 * AT burden: 98.61% Title: Sinus Arrhythmia * Stored EGMs are consistent with or suggestive of Sinus Arrhythmia with ectopy * AT [place]: 47.5% * Total number of episodes: 1 [...] encounter Care Teams Start Date End Date Educational Guidance Counselor Relationship Specialty 07/24/20 Natali Workman, PCP - General Nurse [employer]ER Practitioner [address] [place] [address] documented as of this encounter
[2022-05-03 08:30] VITALS: BP 119/71
--- NOTE | 2022-05-03 09:05 | Cardiology History & Physical ---
HPI-Cardiology Cardiology Consultation Date of Consultation 05/03/22 Date of Admission Time Seen by Provider: 08:58 Indication: PAF, Tikosyn initiation HPI Patient is a 76 y/o make with hx of PAF, has been maintained on Sotalol and follows with Dr. Tee. s/p LINq interrogation and noted to have increased episodes of afib over the past month. Discussed with Dr. Tee and planning for Tikosyn initiation. Patient reports he has been off Sotalol now for 6 days. Denies any chest pain or dyspnea. PMH-Cardiology Immunizations Up To Date Tetanus Booster (DTap): More than 5yrs Surgeries Yes (testical surgery, lasik, heart bypass,r carotid artery ) Respiratory Yes Cardiovascular Yes Hypertension, Coronary Artery Disease Neurological Yes Stroke Reproductive System Hx Reproductive Disorders: No Gastrointestinal No Musculoskeletal No Endocrine No Cancer No Psychosocial No Blood Transfusions No Social History Patient Social History Marrital Status: Employed/Student: retired Substance type: Other Have you traveled recently?: No Alcohol Use?: Yes Family Hx Significant Family History: No Pertinent Family Hx ROS-Cardiology Review of Systems General: No Chills, No Night Sweats, No Fatigue, No Malaise, No Appetite, No Other HEENT: No Head Aches, No Visual Changes, No Eye Pain, No Ear Pain, No Dysphasia, No Sinus Congestion, No Post Nasal Drip, No Sore Throat, No Other Pulmonary: No Dyspnea, No Cough, No Pleuritic Chest Pain, No Other Cardiovascular: No: Chest Pain, Palpitations, Orthopnea, Paroxysmal Noc. Dyspnea, Edema, Lt Headedness, Other Gastrointestinal: No: Nausea, Vomiting, Abdominal Pain, Diarrhea, Constipation, Melena, Hematochezia, Other Genitourinary: No Dysuria, No Frequency, No Incontinence, No Hematuria, No Retention, No Other Musculoskeletal: No: other, neck pain, shoulder pain, arm pain, back pain, hand pain, leg pain, foot pain Home Medications & Allergies Allergies: Coded Allergies: No Known Drug Allergies (Unverified , 11/12/09) Home Medication List Reviewed: Yes Exam-Cardiology Vital Signs Vital Signs Date Time Temp Pulse Resp B/P (MAP) Pulse Ox O2 Delivery O2 Flow Rate FiO2 05/03/22 10:17 60 05/03/22 08:30 36.7 18 119/71 (87) 97 Room Air Exam General Appearance: Alert, Oriented X3, Cooperative, No Acute Distress HEENT: Atraumatic, PERRLA Respiratory: Clear to Auscultation, Normal Air Movement Cardiovascular: Regular Rate, Normal S1, Normal S2, No Murmurs Abdominal: Normal Bowel Sounds, Soft, No Tenderness, No Hepatosplenomegaly, No Masses Neuro: Normal Gait, Normal Speech Psych/Mental Status: Mental Status NL, Mood NL Results Labs Labs Laboratory Tests 05/03/22 09:15: White Blood Count 9.4, Red Blood Count 5.17, Hemoglobin 11.0L, Hematocrit 37L, Mean Corpuscular Volume 72L, Mean Corpuscular Hemoglobin 21L, Mean Corpuscular Hemoglobin Concent 29L, Red Cell Distribution Width 19.9H, Platelet Count 281, M mani Platelet Volume 11.1, Percent Immature Platelet Fraction 9.7H, Prothrombin Time 15.5H, INR Comment 1.2, Activated Partial Thromboplast Time 32, Sodium Level 137, Potassium Level 3.5L, Chloride Level 93L, Carbon Dioxide Level 29, Anion Gap 15H, Blood Urea Nitrogen 14, Creatinine 1.12, Estimat Glomerular Filtration Rate 69, BUN/Creatinine Ratio 13, Glucose Level 117H, Calcium Level 10.2H, Corrected Calcium 9.8, Total Bilirubin 0.8, Aspartate Amino Transf (AST/SGOT) 18, Alanine Aminotransferase (ALT/SGPT) 14, Alkaline Phosphatase 42, Total Protein 7.3, Albumin 4.5, Thyroid Stimulating Hormone (TSH) 1.07 A/P-Cardiology Admission Diagnosis PAF CAD COPD HTN Admission Status: Inpatient Order (span 2 midnights) Reason for Inpatient Admission: Tikosyn initiation requiring 3 days monitoring of EKG Assessment/Plan Paroxysmal atrial fibrillation, failed cardioversion, underwent ablation with Dr. Brar in September 2019. Was on amiodarone and developed severe shortness of breath probably toxicity to amiodarone, has been recovering and doing better at this time. Maintained on sotalol which was increased to 120mg BID in Jan 2020. Follows with Dr. Tee, has LINq that is now followed with Dr. Tee. Was notified on 03/29/22 of atrial afib episode since 03/18/[address] Tee recommended change from Sotalol to Tikosyn. Patient is admitted, has been off sotalol for 1 week, starting with a loading dose of Tikosyn. We will continue monitoring EKG Coronary artery disease-status post CABG x3 in 2007 with FUCHS to LAD, vein graft to OM and vein graft to PDA. Patient has a known occluded right coronary artery patent vein graft to the right coronary artery. Small vessel disease distally. Known occluded vein graft to the obtuse marginal branch. Cardiac catheterization done May 12, 2018 revealed patent vein graft to the right coronary artery, occluded FUCHS to LAD and vein graft to the obtuse marginal branch. Moderate disease in the left main coronary artery. Calcified and moderately diseased proximal LAD, more significant disease at the distal LAD. Nonobstructive disease, Mild to moderate disease in the circumflex artery, the proper cir cumflex artery is very small artery with diffuse disease. repeat cardiac catheterization was done in August 2019 after having an abnormal stress test which showed atretic FUCHS with good flow through the [place] LAD, mild to moderate disease in the proximal LAD, moderate distal LAD stenosis with a smaller artery, patent vein graft to the right coronary artery with slow flow due to small vessel disease distally, known occluded vein graft to the circumflex artery with [id number] disease in the [place] circumflex artery. Continue to monitor COPD, back to baseline, status post respiratory failure in October 2019 possible amiodarone toxicity versus pneumonia. Was hospitalized again in January 2021 for AE COPD, following with Dr. Brasher Pulmonary hypertension per [facility] done Oct 2020. Thoracic aortic aneurysm, noted incidentally on CT scan measuring 4.4 cm and ascending thoracic aorta per most recent CT done May 2021. Maintained on beta blockers and tolerating it well. Continue to monitor Echocardiogram was done on September 24, 2021 with normal LV size, EF 55 to 65%, mild mitral regurgitation, PA pressure 35 to 40 mmHg Hypertension, currently borderline hypotensive, I am holding diltiazem and monitor blood pressure closely Hyperlipidemia, continue to monitor lipids History of CVA post CABG, continue to monitor Carotid artery stenosis-status post right CEA. Most recent carotid duplex done Mar 2021 Sleep apnea This is Estrellita Skinner PA-C, as a scribe for Dr. Cooper. Patient was seen and evaluated with Estrellita, I interviewed and examined the patient, discussed the management plan and made few modification to the note using Italic font In summary patient is admitted for loading with Tikosyn, has been off sotalol for 1 week Currently asymptomatic. Replace potassium and monitor electrolyte, monitor EKG ESTRELLITA FERNANDEZ May 03, 2022 09:04 DEREK COOPER MD May 03, 2022 11:00
[2022-05-03 09:27] LABS: MEAN PLATELET VOLUME 11.1 fL (9.0-12.2); WHITE BLOOD COUNT 9.4 10^3/uL (4.3-11.0)
[2022-05-03] MEDS: APIXABAN 5 MG (ELIQUIS) TABLET PO SCH ×2 (09:31→20:32)
[2022-05-03] MEDS: BUMETANIDE 1 MG (BUMEX) TAB PO SCH (09:31)
[2022-05-03] MEDS: ASPIRIN E.C. 81 MG (ECOTRIN) TAB PO SCH (09:31)
[2022-05-03 09:49] LABS: ALBUMIN 4.5 GM/DL (3.2-4.5); BILIRUBIN,TOTAL 0.8 MG/DL (0.1-1.0); CALCIUM 10.2 MG/DL (8.5-10.1); CREATININE SERUM 1.12 MG/DL (0.60-1.30); POTASSIUM 3.5 MMOL/L (3.6-5.0); TOTAL PROTEIN 7.3 GM/DL (6.4-8.2)
[2022-05-03 10:00] LABS: INR 1.2 (0.8-1.4); PROTHROMBIN TIME PATIENT 15.5 SEC (12.2-14.7)
[2022-05-03] MEDS: DOFETILIDE 250 MCG CAP (TIKOSYN) NON-FORMLUARY PO SCH ×2 (10:17→19:31)
[2022-05-03] MEDS ORDERED: KCL 20 MEQ TAB (K-DUR) PO NR (10:30)
[2022-05-03] MEDS ORDERED: TADA20TA43 PO (10:55)
[2022-05-03] MEDS ORDERED: MACI10TA2 PO (10:55)
[2022-05-03] MEDS ORDERED: BUME1TAB8 PO ×2 (10:55→12:39)
[2022-05-03] MEDS ORDERED: MAGN400C PO (10:55)
[2022-05-03] MEDS ORDERED: TREP1.743 IH (10:55)
[2022-05-03] MEDS ORDERED: METO5TAB6 PO (10:55)
[2022-05-03] MEDS ORDERED: SPIR50TA4 PO (10:55)
[2022-05-03] MEDS ORDERED: POTA20PA34 PO (10:55)
[2022-05-03] MEDS ORDERED: PATIENT MAY USE OWN MEDS, ALL MC SCH (11:00)
[2022-05-03 11:45] VITALS: BP 116/73
[2022-05-03] MEDS: [UNRECOGNIZED DRUG - REMARK] IH SCH ×3 (13:49→20:33)
[2022-05-03 15:11] VITALS: BP 126/101
[2022-05-03 19:19] VITALS: BP 147/68
[2022-05-04 02:06] VITALS: BP 134/74
[2022-05-04 04:17] VITALS: BP 102/52
[2022-05-04 05:58] LABS: CALCIUM 9.9 MG/DL (8.5-10.1); CREATININE SERUM 0.92 MG/DL (0.60-1.30); POTASSIUM 2.9 MMOL/L (3.6-5.0)
[2022-05-04] MEDS: KCL 20 MEQ TAB (K-DUR) PO SCH (06:31)
[2022-05-04] MEDS: DOFETILIDE 250 MCG CAP (TIKOSYN) NON-FORMLUARY PO SCH ×2 (07:07→18:44)
[2022-05-04 08:00] VITALS: BP 116/80
[2022-05-04] MEDS ORDERED: NS IV 500 ML 500 ML IV ONE (08:15)
[2022-05-04] MEDS: ASPIRIN E.C. 81 MG (ECOTRIN) TAB PO SCH (08:20)
[2022-05-04] MEDS: BUMETANIDE 1 MG (BUMEX) TAB PO SCH (08:20)
[2022-05-04] MEDS: APIXABAN 5 MG (ELIQUIS) TABLET PO SCH ×2 (08:20→21:07)
[2022-05-04] MEDS: [UNRECOGNIZED DRUG - REMARK] PO SCH (08:21)
[2022-05-04] MEDS: [UNRECOGNIZED DRUG - REMARK] IH SCH (08:21)
[2022-05-04] MEDS: [UNRECOGNIZED DRUG - REMARK] IH SCH ×4 (08:21→20:13)
[2022-05-04] MEDS: POTASSIUM CL 10MEQ/50ML IVPB 50 ML IV SCH ×4 (08:34→11:25)
--- NOTE | 2022-05-04 09:31 | Cardiology Progress Note ---
Subjective Date Seen by Provider: May 04, 2022 Time Seen by Provider: 09:25 Subjective/Events-last exam Patient was seen at bedside, laying down comfortably Back in atrial fibrillation, asymptomatic Review of Systems General: No Chills, No Night Sweats, No Fatigue, No Malaise, No Appetite, No Other HEENT: No Head Aches, No Visual Changes, No Eye Pain, No Ear Pain, No Dysphasia, No Sinus Congestion, No Post Nasal Drip, No Sore Throat, No Other Pulmonary: No Dyspnea, No Cough, No Pleuritic Chest Pain, No Other Cardiovascular: No: Chest Pain, Palpitations, Orthopnea, Paroxysmal Noc. Dyspnea, Edema, Lt Headedness, Other Objective-Cardiology Exam Last Set of Vital Signs Vital Signs 05/03/22 05/03/22 05/04/22 05/04/22 19:19 20:00 04:17 07:00 Temp 36.0 Pulse 154 Resp 20 B/P (MAP) 102/52 (69) Pulse Ox 97 O2 Delivery Room Air I&O Intake and Output 05/04/22 00:00 Intake Total 1600 ml Balance 1600 ml Intake Oral 1600 ml # Voids 5 Daily Weight Change No General: Alert, Oriented X3, Cooperative, No Acute Distress HEENT: Atraumatic, PERRLA Neck: Supple, No JVD Lungs: Clear to Auscultation, Normal Air Movement Heart: Normal S1, Normal S2, No Murmurs, Other (Atrial fibrillation) Abdomen: Normal Bowel Sounds, Soft, No Tenderness, No Hepatosplenomegaly, No Masses Extremities: Other (Mild pedal edema) Neuro: Normal Gait, Normal Speech Psych/Mental Status: Mental Status NL, Mood NL Results Lab Laboratory Tests 05/04/22 05:17 A/P-Cardiology Admission Diagnosis PAF CAD COPD HTN Assessment/Plan Paroxysmal atrial fibrillation, failed cardioversion, underwent ablation with Dr. Brar in September 2019. Was on amiodarone and developed severe shortness of breath probably toxicity to amiodarone, has been recovering and doing better at this time. Maintained on sotalol which was increased to 120mg BID in Jan 2020. Follows with Dr. Tee, has LINq that is now followed with Dr. Tee. Was notified on 03/29/22 of atrial afib episode since 03/18/[address] Tee recommended change from Sotalol to Tikosyn. Patient is admitted on May 11, 2022, has been off sotalol for 1 week, starting with a loading dose of Tikosyn. Back in atrial fibrillation today. Continue to monitor If he did not convert back to sinus rhythm and considering cardioversion Hypokalemia, replace and monitor Coronary artery disease-status post CABG x3 in 2007 with FUCHS to LAD, vein graft to OM and vein graft to PDA. Patient has a known occluded right coronary artery patent vein graft to the right coronary artery. Small vessel disease distally. Known occluded vein graft to the obtuse marginal branch. Cardiac catheterization done May 12, 2018 revealed patent vein graft to the right coronary artery, occluded FUCHS to LAD and vein graft to the obtuse marginal branch. Moderate disease in the left main coronary artery. Calcified and moderately diseased proximal LAD, more significant disease at the distal LAD. Nonobstructive disease, Mild to moderate disease in the circumflex artery, the proper circumflex artery is very small artery with diffuse disease. repeat cardiac catheterization was done in August 2019 after having an abnormal stress test which showed atretic FUCHS with good flow through the [place] LAD, mild to moderate disease in the proximal LAD, moderate distal LAD stenosis with a smaller artery, patent vein graft to the right coronary artery with slow flow due to small vessel disease distally, known occluded vein graft to the circumflex artery with [id number] disease in the [place] circumflex artery. Continue to monitor COPD, back to baseline, status post respiratory failure in October 2019 possible amiodarone toxicity versus pneumonia. Was hospitalized again in January 2021 for AE COPD, following with Dr. Brasher Pulmonary hypertension per [facility] done Oct 2020. Thoracic aortic aneurysm, noted incidentally on CT scan measuring 4.4 cm and as cending thoracic aorta per most recent CT done May 2021. Maintained on beta blockers and tolerating it well. Continue to monitor Echocardiogram was done on September 24, 2021 with normal LV size, EF 55 to 65%, mild mitral regurgitation, PA pressure 35 to 40 mmHg Hypertension, currently borderline hypotensive, I am holding diltiazem and monitor blood pressure closely Hyperlipidemia, continue to monitor lipids History of CVA post CABG, continue to monitor Carotid artery stenosis-status post right CEA. Most recent carotid duplex done Mar 2021 Sleep apnea DEREK ANDERSON MD May 04, 2022 09:30
[2022-05-04] MEDS: SPIRONOLACTONE 25 MG (ALDACTONE) TAB PO SCH (10:20)
[2022-05-04 12:05] VITALS: BP 106/55
[2022-05-04 16:31] VITALS: BP 95/80
[2022-05-04 20:24] VITALS: BP 98/61
[2022-05-04] MEDS: MAGNESIUM OXIDE (MAG-OX)400 MG TAB PO SCH (21:07)
[2022-05-05] VITALS (12 sets, daily range): BP systolic 82–114; BP diastolic 52–89
[2022-05-05] MEDS: KCL 20 MEQ TAB (K-DUR) PO SCH (06:15)
[2022-05-05] MEDS: DOFETILIDE 250 MCG CAP (TIKOSYN) NON-FORMLUARY PO SCH ×3 (06:16→20:35)
[2022-05-05 06:42] LABS: CALCIUM 9.1 MG/DL (8.5-10.1); CREATININE SERUM 0.99 MG/DL (0.60-1.30); POTASSIUM 2.9 MMOL/L (3.6-5.0)
[2022-05-05] MEDS: POTASSIUM CL 10MEQ/50ML IVPB 50 ML IV SCH ×4 (07:53→11:13)
[2022-05-05] MEDS: NS IV 500 ML 500 ML IV SCH ×2 (07:53→07:58)
--- NOTE | 2022-05-05 08:30 | Cardioversion ---
Cardioversion PROCEDURE PHYSICIAN: Derek Cooper DATE OF PROCEDURE: 05/05/22 DIRECT EXTERNAL ELECTRICAL CARDIOVERSION: Indications: Atrial Fibrillation Preoperative diagnoses: Atrial Fibrillation Postoperative diagnosis: Sinus rhythm, Successful Electrical Cardioversion Anesthesia: By Anesthesia services Complications: None Specimen: None Contrast: 0 Flouroscopy: none Procedure Details: The patient was brought the laboratory aide after informed consent was taken, all the risks and complications were explained including the risk of stroke. Electrical cardioversion was carried out with anesthesia support with propofol. 200 joules of synchronized shock was delivered through external patches which promptly restored sinus rhythm. The patient tolerated the procedure well. Conclusions: Successful cardioversion in terminating atrial fibrillation DEREK COOPER MD May 05, 2022 08:30
[2022-05-05] MEDS: BUMETANIDE 1 MG (BUMEX) TAB PO SCH (08:31)
--- NOTE | 2022-05-05 08:37 | Cardiology Progress Note ---
Subjective Date Seen by Provider: May 05, 2022 Time Seen by Provider: 08:37 Subjective/Events-last exam Patient was seen at bedside laying down comfortably. No new complaint. Underwent cardioversion without complication Review of Systems General: No Chills, No Night Sweats, No Fatigue, No Malaise, No Appetite, No Other HEENT: No Head Aches, No Visual Changes, No Eye Pain, No Ear Pain, No Dysphasia, No Sinus Congestion, No Post Nasal Drip, No Sore Throat, No Other Pulmonary: No Dyspnea, No Cough, No Pleuritic Chest Pain, No Other Cardiovascular: No: Chest Pain, Palpitations, Orthopnea, Paroxysmal Noc. Dyspnea, Edema, Lt Headedness, Other Objective-Cardiology Exam Last Set of Vital Signs Vital Signs 05/03/22 05/05/22 05/05/22 05/05/22 19:19 00:00 03:37 08:16 Temp 37.2 Pulse 79 Resp 20 B/P (MAP) 111/84 (93) Pulse Ox 98 O2 Delivery Room Air I&O Intake and Output 05/05/22 00:00 Intake Total 1600 ml Balance 1600 ml Intake Oral 1250 ml IV Total 350 ml # Voids 9 General: Alert, Oriented X3, Cooperative, No Acute Distress HEENT: Atraumatic, PERRLA Neck: Supple, No JVD Lungs: Clear to Auscultation, Normal Air Movement Heart: Regular Rate, Normal S1, Normal S2, No Murmurs Abdomen: Normal Bowel Sounds, Soft, No Tenderness, No Hepatosplenomegaly, No Masses Extremities: Other (Mild pedal edema) Neuro: Normal Gait, Normal Speech Psych/Mental Status: Mental Status NL, Mood NL Results Lab Laboratory Tests 05/05/22 06:09 A/P-Cardiology Admission Diagnosis PAF CAD COPD HTN Assessment/Plan Paroxysmal atrial fibrillation, failed cardioversion, underwent ablation with Dr. Brar in September 2019. Was on amiodarone and developed severe shortness of breath probably toxicity to amiodarone, has been recovering and doing better at this time. Maintained on sotalol which was increased to 120mg BID in Jan 2020. Follows with Dr. Tee, has LINq that is now followed with Dr. Tee. Was notified on 03/29/22 of atrial afib episode since 03/18/[address] Tee recommended change from Sotalol to Tikosyn. Patient is admitted on May 11, 2022, has been off sotalol for 1 week, starting with a loading dose of Tikosyn. Back in atrial fibrillation, underwent electrical cardioversion on May 05, 2022 and he is back in sinus rhythm Tolerating Tikosyn loading dose well Hypokalemia, replace and monitor Coronary artery disease-status post CABG x3 in 2007 with FUCHS to LAD, vein graft to OM and vein graft to PDA. Patient has a known occluded right coronary artery patent vein graft to the right coronary artery. Small vessel disease distally. Known occluded vein graft to the obtuse marginal branch. Cardiac catheterization done May 12, 2018 revealed patent vein graft to the right coronary artery, occluded FUCHS to LAD and vein graft to the obtuse marginal branch. Moderate disease in the left main coronary artery. Calcified and moderately diseased pro ximal LAD, more significant disease at the distal LAD. Nonobstructive disease, Mild to moderate disease in the circumflex artery, the proper circumflex artery is very small artery with diffuse disease. repeat cardiac catheterization was done in August 2019 after having an abnormal stress test which showed atretic FUCHS with good flow through the [place] LAD, mild to moderate disease in the proximal LAD, moderate distal LAD stenosis with a smaller artery, patent vein graft to the right coronary artery with slow flow due to small vessel disease distally, known occluded vein graft to the circumflex artery with [id number] disease in the [place] circumflex artery. Continue to monitor COPD, back to baseline, status post respiratory failure in October 2019 possible amiodarone toxicity versus pneumonia. Was hospitalized again in January 2021 for AE COPD, following with Dr. Brasher Pulmonary hypertension per [facility] done Oct 2020. Thoracic aortic aneurysm, noted incidentally on CT scan measuring 4.4 cm and ascending thoracic aorta per most recent CT done May 2021. Maintained on beta blockers and tolerating it well. Continue to monitor Echocardiogram was done on September 24, 2021 with normal LV size, EF 55 to 65%, mild mitral regurgitation, PA pressure 35 to 40 mmHg Hypertension, currently borderline hypotensive, I am holding diltiazem and monitor blood pressure closely Hyperlipidemia, continue to monitor lipids History of CVA post CABG, continue to monitor Carotid artery stenosis-status post right CEA. Most recent carotid duplex done Mar 2021 Sleep apnea DEREK ANDERSON MD May 05, 2022 08:37
[2022-05-05] MEDS: APIXABAN 5 MG (ELIQUIS) TABLET PO SCH ×2 (09:23→20:34)
[2022-05-05] MEDS: ASPIRIN E.C. 81 MG (ECOTRIN) TAB PO SCH (09:23)
[2022-05-05] MEDS: SPIRONOLACTONE 25 MG (ALDACTONE) TAB PO SCH (09:23)
[2022-05-05] MEDS: MAGNESIUM OXIDE (MAG-OX)400 MG TAB PO SCH ×2 (09:23→20:34)
[2022-05-05] MEDS: [UNRECOGNIZED DRUG - REMARK] IH SCH (09:24)
[2022-05-05] MEDS: [UNRECOGNIZED DRUG - REMARK] IH SCH ×4 (09:24→20:36)
[2022-05-05] MEDS: [UNRECOGNIZED DRUG - REMARK] PO SCH (09:24)
--- NOTE | 2022-05-05 13:13 | Anesthesia-General Post-Op ---
MAC Patient Condition Mental Status/LOC: Same as Preop Cardiovascular: Satisfactory Nausea/Vomiting: Absent Respiratory: Satisfactory Pain: Controlled Complications: Absent Post Op Complications Complications None Follow Up Care/Instructions Patient Instructions None needed. Anesthesiology Discharge Order Discharge Order Patient is doing well, no complaints, stable vital signs, no apparent adverse anesthesia problems. No complications reported per nursing. EARLE MCCLOUD CRNA May 05, 2022 13:13
[2022-05-05] MEDS ORDERED: proPOfol 200 MG/20 ML (DIPRIVAN) VIAL IV ONE (13:23)
[2022-05-05] MEDS ORDERED: KCL 20 MEQ TAB (K-DUR) PO NR (15:00)
[2022-05-06 03:37] VITALS: BP 99/56
[2022-05-06] MEDS: KCL 20 MEQ TAB (K-DUR) PO SCH (06:25)
[2022-05-06] MEDS: DOFETILIDE 250 MCG CAP (TIKOSYN) NON-FORMLUARY PO SCH (06:26)
[2022-05-06 07:19] LABS: POTASSIUM 3.4 MMOL/L (3.6-5.0)
[2022-05-06 07:20] LABS: CALCIUM 8.8 MG/DL (8.5-10.1)
[2022-05-06 07:25] LABS: CREATININE SERUM 0.92 MG/DL (0.60-1.30)
[2022-05-06 08:00] VITALS: BP 110/76
--- NOTE | 2022-05-06 08:40 | Cardiology Progress Note ---
Subjective Date Seen by Provider: May 06, 2022 Time Seen by Provider: 08:38 Subjective/Events-last exam Patient sitting up in bed, no new complaints. Objective-Cardiology Exam Last Set of Vital Signs Vital Signs 05/05/22 05/06/22 23:17 08:43 Pulse 79 O2 Flow Rate 4.00 I&O Intake and Output 05/06/22 00:00 Intake Total 1740 ml Balance 1740 ml Intake Oral 1470 ml IV Total 270 ml # Voids 10 General: Alert, Oriented X3, Cooperative, No Acute Distress HEENT: Atraumatic, PERRLA Neck: Supple, No JVD Lungs: Clear to Auscultation, Normal Air Movement Heart: Regular Rate, Normal S1, Normal S2, No Murmurs Abdomen: Normal Bowel Sounds, Soft, No Tenderness, No Hepatosplenomegaly, No Masses Extremities: Other (Mild pedal edema) Neuro: Normal Gait, Normal Speech Psych/Mental Status: Mental Status NL, Mood NL Results Lab Laboratory Tests 05/05/22 12:08 05/06/22 06:58 A/P-Cardiology Admission Diagnosis PAF CAD COPD HTN Assessment/Plan Paroxysmal atrial fibrillation, failed cardioversion, underwent ablation with Dr. Brar in September 2019. Was on amiodarone and developed severe shortness of breath probably toxicity to amiodarone, has been recovering and doing better at this time. Maintained on sotalol which was increased to 120mg BID in Jan 2020. Follows with Dr. Tee, has LINq that is now followed with Dr. Tee. Was notified on 03/29/22 of atrial afib episode since 03/18/[address] Tee recommended change from Sotalol to Tikosyn. Patient is admitted on May 11, 2022, has been off sotalol for 1 week, starting with a loading dose of Tikosyn. Back in atrial fibrillation, underwent electrical cardioversion on May 05, 2022 and he is back in sinus rhythm Tolerating Tikosyn loading dose well. Planning for discharge later this morning. Hypokalemia, replaced and improved, continue to monitor. Coronary artery disease-status post CABG x3 in 2007 with FUCHS to LAD, vein graft to OM and vein graft to PDA. Patient has a known occluded right coronary artery patent vein graft to the right coronary artery. Small vessel disease distally. Known occluded vein graft to the obtuse marginal branch. Cardiac catheterization done May 12, 2018 revealed patent vein graft to the right coronary artery, occluded FUCHS to LAD and vein graft to the obtuse marginal branch. Moderate disease in the left main coronary artery. Calcified and moderately diseased proximal LAD, more significant disease at the distal LAD. Nonobstructive disease, Mild to moderate disease in the circumflex artery, the proper circumflex artery is very small artery with diffuse disease. repeat cardiac catheterization was done in August 2019 after having an abnormal stress test which showed atretic FUCHS with good flow through the [place] LAD, mild to moderate disease in the proximal LAD, moderate distal LAD stenosis with a smaller artery, patent vein graft to the right coronary artery with slow flow due to small vessel disease distally, known occluded vein graft to the circumf [place] artery with [id number]-[id number]-[id number] disease in the [place] circumflex artery. Continue to monitor COPD, back to baseline, status post respiratory failure in October 2019 possible amiodarone toxicity versus pneumonia. Was hospitalized again in January 2021 for AE COPD, following with Dr. Brasher Pulmonary hypertension per [facility] done Oct 2020. Thoracic aortic aneurysm, noted incidentally on CT scan measuring 4.4 cm and ascending thoracic aorta per most recent CT done May 2021. Maintained on beta blockers and tolerating it well. Continue to monitor Echocardiogram was done on September 24, 2021 with normal LV size, EF 55 to 65%, mild mitral regurgitation, PA pressure 35 to 40 mmHg Hypertension, currently borderline hypotensive, asyptomatic. I am holding diltiazem and monitor blood pressure closely Hyperlipidemia, continue to monitor lipids History of CVA post CABG, continue to monitor Carotid artery stenosis-status post right CEA. Most recent carotid duplex done Mar 2021 Sleep apnea TOM FERNANDEZ May 06, 2022 08:40
[2022-05-06] MEDS: APIXABAN 5 MG (ELIQUIS) TABLET PO SCH (08:45)
[2022-05-06] MEDS: MAGNESIUM OXIDE (MAG-OX)400 MG TAB PO SCH (08:45)
[2022-05-06] MEDS: ASPIRIN E.C. 81 MG (ECOTRIN) TAB PO SCH (08:45)
[2022-05-06] MEDS ORDERED: DOFE250C PO (08:48)
[2022-05-06] MEDS: [UNRECOGNIZED DRUG - REMARK] PO SCH (08:48)
--- NOTE | 2022-05-06 08:48 | Discharge Inst-Post CATH ---
Discharge Inst-CATH/EP Problems Reviewed?: Yes Post Cardiac Cath/EP D/C Inst Follow Up/Plan Appointment with Dr. Cooper's office next week <b>CARDIAC CATH/EP PROCEDURE DISCHARGE INSTRUCTIONS</b> ACTIVITY * Go Home directly and rest. * Limit activity of the leg (or wrist if it was used) for 7 days including aerobics, swimming, jogging, bicycling, etc. * Restrict stair-climbing for 7 days if possible, if not, climb up with your non-cath leg, then bring together on the same step. * Avoid lifting, pushing, pulling or excessive movement of the affected extremity for 7 days. * Customary sexual activity may be resumed after 2 days-use caution not to use a position that strains or causes pain to the affected extremity. * No driving for 24 hours. * NO SMOKING. * Avoid straining for bowel movements for 7 days. * Gentle walking on level ground is allowed. * Returning to work will depend on the type of procedure and the results. Your doctor will discuss this with you. CALL YOUR DOCTOR FOR ANY OF THE FOLLOWING: *If bleeding from the puncture site occurs- Apply gentle pressure to site with clean cloth and call your doctor or EMS. * If a knot or lump forms under the skin, increases in size, or causes pain. * If bruising appears to be worsening or moving further down your leg instead of disappearing. * Temperature above 101 F. CARE OF YOUR GROIN INCISION; * Bruising or purple discoloration of the skin near the puncture site is common. * You may shower only, no bathtub bathing for 5 days. Be careful to avoid slipping as your leg may feel stiff. * If a closure device was used on your femoral artery, please see the attached guide regarding care of the device and your leg. * Leave dressing on FOR 24 hours. CARE OF YOUR WRIST INCISION; * Bruising or purple discoloration of the skin near the puncture site is common. * You may shower. * DO NOT submerge wrist. * Leave dressing on FOR 24 hours. DEREK COOPER MD May 06, 2022 08:48
[2022-05-06] MEDS: SPIRONOLACTONE 25 MG (ALDACTONE) TAB PO SCH (08:50)
--- NOTE | 2022-05-06 08:51 | Cardiology Discharge Summary ---
Discharge Summary Hospital Course Problems Reviewed?: Yes Hospital Course Date of Admission: May 03, 2022 at 08:00 Admission Diagnosis : Family Physician/Provider: No,Local Physician Date of Discharge: 05/06/22 Discharge Diagnosis: [Paroxysmal atrial fibrillation Hypokalemia Coronary artery disease COPD Pulmonary hypertension Thoracic aortic aneurysm] Hospital Course: [Paroxysmal atrial fibrillation, failed cardioversion, underwent ablation with Dr. Brar in September 2019. Was on amiodarone and developed severe shortness of breath probably toxicity to amiodarone, has been recovering and doing better at this time. Maintained on sotalol which was increased to 120mg BID in Jan 2020. Follows with Dr. Tee, has LINq that is now followed with Dr. Tee. Was notified on 03/29/22 of atrial afib episode since 03/18/[address] Tee recommended change from Sotalol to Tikosyn. Patient is admitted on May 11, 2022, has been off sotalol for 1 week, starting with a loading dose of Tikosyn. Back in atrial fibrillation, underwent electrical cardioversion on May 05, 2022 and he is back in sinus rhythm Tolerating Tikosyn loading dose well. Planning for discharge later this morning. Hypokalemia, replaced and improved, continue to monitor. Coronary artery disease-status post CABG x3 in 2007 with FUCHS to LAD, vein graft to OM and vein graft to PDA. Patient has a known occluded right coronary artery patent vein graft to the right coronary artery. Small vessel disease distally. Known occluded vein graft to the obtuse marginal branch. Cardiac catheterization done May 12, 2018 revealed patent vein graft to the right coronary artery, occluded FUCHS to LAD and vein graft to the obtuse marginal branch. Moderate disease in the left main coronary artery. Calcified and moderately diseased proximal LAD, more significant disease at the distal LAD. Nonobstructive disease, Mild to moderate disease in the circumflex artery, the proper circumflex artery is very small artery with diffuse disease. repeat cardiac catheterization was done in August 2019 after having an abnormal stress test which showed atretic FUCHS with good flow through the [place] LAD, mild to moderate disease in the proximal LAD, moderate distal LAD stenosis with a smaller artery, patent vein graft to the right coronary artery with slow flow due to small vessel disease distally, known occluded vein graft to the circumflex artery with [id number] disease in the [place] circumflex artery. Continue to monitor COPD, back to baseline, status post respiratory failure in October 2019 possible amiodarone toxicity versus pneumonia. Was hospitalized again in January 2021 for AE COPD, following with Dr. Brasher Pulmonary hypertension per [facility] done Oct 2020. Thoracic aortic aneurysm, noted incidentally on CT scan measuring 4.4 cm and ascending thoracic aorta per most recent CT done May 2021. Maintained on beta blockers and tolerating it well. Continue to monitor Echocardiogram was done on September 24, 2021 with normal LV size, EF 55 to 65%, mild mitral regurgitation, PA pressure 35 to 40 mmHg Hypertension, currently borderline hypotensive, asyptomatic. I am holding diltiazem and monitor blood pressure closely Hyperlipidemia, continue to monitor lipids History of CVA post CABG, continue to monitor Carotid artery stenosis-status post right CEA. Most recent carotid duplex done Mar 2021 Sleep apnea ] Labs and Pending Lab Test: Laboratory Tests 05/05/22 12:08: Potassium Level 3.3L 05/06/22 06:58: Potassium Level 3.4L, Sodium Level 136, Chloride Level 99, Carbon Dioxide Level 24, Anion Gap 13, Blood Urea Nitrogen 13, Creatinine 0.92, Estimat Glomerular Filtration Rate 87, BUN/Creatinine Ratio 14, Glucose Level 126H, Calcium Level 8.8 Home Meds Active Tikosyn (Dofetilide) 250 Mcg Capsule 250 Mcg PO BID@0700,1900 Reported Bumetanide 1 Mg Tablet 1 Mg PO 1200 ,,HUMAIRA,SAT,SUN Magnesium (Magnesium Oxide) 400 Mg Magnesium Capsule 400 Mg PO BID Spironolactone 50 Mg Tablet 50 Mg PO ,TUE,HUMAIRA,SAT,SUN Metolazone 5 Mg Tablet 5 Mg PO TUE, TUED Bumetanide 1 Mg Tablet 1 Mg PO DAILY Tyvaso (Treprostinil) 1.74 Mg/2.9 Ml (0.6 Mg/Ml) Ampul.neb 1.74 Mg IH QID Opsumit (Macitentan) 10 Mg Tablet 10 Mg PO DAILY Tadalafil 20 Mg Tablet 40 Mg PO DAILY TAKES 2 (20MG) TABS Klor-Con (Potassium Chloride) 20 Meq Packet 20 Meq PO HS Epidiolex (Cannabidiol (Cbd) Extract) 100 Mg/1 Ml Solution 0.5 Ml PO BID Ibuprofen 200 Mg Tablet 800 Mg PO BID TAKES 4 (200MG) TABLETS Mycophenolate Mofetil 500 Mg Tablet 1,000 Mg PO BID TAKES 2 (500MG) TABLETS Potassium Chloride 20 Meq Tablet.er 40 Meq PO DAILY TAKES 2 (20MG) TABS Aspirin 81 Mg Tab.chew 81 Mg PO DAILY Anoro Ellipta 62.5-25 Mcg INH (Umeclidinium Brm/Vilanterol Tr) 1 Each Blst.w.dev 1 Puff IH DAILY Eliquis (Apixaban) 5 Mg Tablet 5 Mg PO BID Multivitamin 1 Each Tablet 1 Each PO DAILY Atorvastatin Calcium 20 Mg Tablet 20 Mg PO HS Assessment/Pt DC Instructions Paroxysmal atrial fibrillation Hypokalemia Coronary artery disease COPD Pulmonary hypertension Discharge Diet: Cardiac Diet Activity as Tolerated: Yes Discharge Physical Examination Allergies: Coded Allergies: amiodarone (Verified Allergy, SHORTNESS OF BREATH, 05/03/22) General Appearance: No Apparent Distress, WD/WN HEENT: PERRL/EOMI, TMs Normal, Normal ENT Inspection, Pharynx Normal Respiratory: Chest Non Tender, Lungs Clear, Normal Breath Sounds, No Accessory Muscle Use, No Respiratory Distress Cardiovascular: Regular Rate, Rhythm, No Edema, No Gallop, No JVD, No Murmur, Normal Peripheral Pulses Gastrointestinal: Normal Bowel Sounds, No Organomegaly, No Pulsatile Mass, Non Tender, Soft Extremity: Normal Capillary Refill, Normal Inspection, Normal Range of Motion, Non Tender, No Calf Tenderness Skin: Normal Color, Warm/Dry Neurologic/Psychiatric: Alert, Oriented x3, No Motor/Sensory Deficits Clinical Quality Measures Admission Status Admission Status: Inpatient Order (span 2 midnights) Reason for Inpatient Admission: Patient was loaded with Tikosyn for 3 days in the hospital DEREK ANDERSON MD May 06, 2022 08:51
== END 2022-05-06 11:30 | disposition home or self-care (01) | DRG 309 ==
LOC: CSD 08:00
PROVIDERS: ADMIT Internal Medicine Cardiovascular Disease; ATTEND Internal Medicine Cardiovascular Disease
PROC: 5A2204Z Restoration of Cardiac Rhythm, Single (ICD-10-PCS; principal; 2022-05-05)
DX: I48.0 Paroxysmal atrial fibrillation (principal); I69.351 Hemiplegia and hemiparesis following cerebral infarction affecting right dominant side; E87.6 Hypokalemia; I25.10 Atherosclerotic heart disease of native coronary artery without angina pectoris; J44.9 Chronic obstructive pulmonary disease, unspecified; I27.20 Pulmonary hypertension, unspecified; I71.20 Thoracic aortic aneurysm, without rupture, unspecified; I34.0 Nonrheumatic mitral (valve) insufficiency; I10 Essential (primary) hypertension; E78.5 Hyperlipidemia, unspecified; I65.29 Occlusion and stenosis of unspecified carotid artery; G47.30 Sleep apnea, unspecified; Z95.1 Presence of aortocoronary bypass graft; Z79.01 Long term (current) use of anticoagulants; Z79.899 Other long term (current) drug therapy; Z87.891 Personal history of nicotine dependence
CPT/HCPCS: 36415; 80048; 80053; 83735; 84132; 84443; 85027; 85610; 85730; 93005

== ENCOUNTER → 2022-05-19 | Day surgery (SDC) | payer MEDICARE ==
[~2022-05-19] MED LIST changes: +BUME1TAB8 PO; +DOFE250C PO; +MACI10TA2 PO; +METO5TAB6 PO; +NS IV 1000 ML 0 ML ONE; +NS IV 1000 ML 1,000 ML IV SCH; +POTA20PA34 PO; +SPIR50TA4 PO; +TADA20TA43 PO; +TREP1.743 IH
== END | disposition home or self-care (01) ==
LOC: CATH 06:37
PROVIDERS: ATTEND Internal Medicine Cardiovascular Disease
DX: I48.91 Unspecified atrial fibrillation (principal); Z53.8 Procedure and treatment not carried out for other reasons
CPT/HCPCS: 93005